=== PATIENT | female | born 1980 | race Caucasian/White ===

== ENCOUNTER 2017-01-18 01:46 | Inpatient (IN) | payer OTHER ==
--- NOTE | 2017-01-18 02:00 | EDPHY ---
H & P Source: Patient, Police HPI/ROS: HPI CHIEF COMPLAINT: Court ordered M1 HISTORY OF PRESENT ILLNESS: This patient 36-year-old female she presents emergency room on M1 hold by police. Patient has a history of schizoaffective disorder, being gravely disabled unable to care for self she was just incarcerated. She is released from assisted this evening however would not participate in psychiatric care in the assisted she placed on a court order M1 hold and was sent here after being released from assisted. Upon arrival here in emergency room the patient is refusing to talk to me or answer any of my questions. Refusing to talk to me or make eye contact. Information comes from the written M1 hold and police. Past Medical History: Schizoaffective disorder Past Surgical History: No recent surgery Social History: Just recently incarcerated and released this evening Family History: Noncontributory ROS REVIEW OF SYSTEMS: Review systems is limited due to patient not wanting to answer any of my questions. Exam Constitutional appears well nontoxic triage nursing summary reviewed, vital signs reviewed, awake/alert. Eyes normal conjunctivae and sclera, EOMI, PERRLA. HENT normal inspection, atraumatic, moist mucus membranes, no epistaxis, neck supple/ no meningismus, no raccoon eyes. Respiratory clear to auscultation bilaterally, normal breath sounds, no respiratory distress, no wheezing. Cardiovascular rate normal, regular rhythm, no murmur, no edema, distal pulses normal. Gastrointestinal soft, non-tender, no rebound, no guarding, normal bowel sounds, no distension, no pulsatile mass. Genitourinary no CVA tenderness. Musculoskeletal no midline vertebral tenderness, full range of motion, no calf swelling, no tenderness of extremities, no meningismus, good pulses, neurovascularly intact. Skin pink, warm, & dry, no rash, skin atraumatic. Neurologic awake, alert and oriented x 3, AAOx3, moves all 4 extremities equally, motor intact, sensory intact, CN II-XII intact, normal cerebellar, normal vision, normal speech. Psychiatric flat affect Heme/Lymph/Immune no lymphadenopathy. Differential Diagnosis: Includes but is not limited to in a particular order, schizoaffective disorder, acute psychosis, gravely disabled, depression, mood disorder Medical Decision Making: Plan for this patient she is on a court ordered M1 hold. She will need medical clearance with blood work, then mental health evaluation and then most likely inpatient psychiatric hospitalization. Re-evaluation: 0653AM: No acute events overnight. Patient signed over to Dr. Sanz at 7:00 a.m. shift change. Needs evaluation. Court ordered M1 hold. Patient will need placement. (Fredrick Kilgore) Constitutional: Initial Vital Signs Temperature (C) 37.2 C 01/18/17 02:15 Heart Rate 105 H 01/18/17 02:15 Respiratory Rate 20 01/18/17 02:15 Blood Pressure 126/108 H 01/18/17 02:15 O2 Sat (%) 97 01/18/17 02:15 O2 Delivery Mode Room Air Allergies/Adverse Reactions: No Known Allergies Allergy (Unverified 01/18/17 02:14) Home Medications: Medication Instructions Recorded NK [No Known Home Meds] 01/18/17 Medical Decision Making ED Course/Re-evaluation: 0700: The patient is signed out to me at change of shift by Dr. Kilgore. Patient is stable. Patient was rechecked during her stay. No new complaints. 1500: Patient is signed out to Dr. Bello at change of shift. (Kathleen Sanz) I assumed care of the patient at 3:00 p.m. pending psychiatric evaluation. Update at 8:30 p.m: The patient has been accepted for inpatient psychiatric admission by Dr. Rodriges at [facility] inpatient psychiatric unit. I have filled out the EMTALA transfer form. (Leo Bello) - Data Points Laboratory Results: Laboratory Results 01/18/17 02:00 01/18/17 02:00 Departure - Departure Disposition: [facility] Inpatient Acute Clinical Impression: Schizoaffective disorder Qualifiers: Schizoaffective disorder type: other Qualified Code(s): F25.8 - Other schizoaffective disorders Condition: Fair Instructions: Schizoaffective Disorder (ED) Referrals: NONE *PRIMARY CARE P,. [Primary Care Provider] - As per Instructions
[2017-01-18 02:49] LABS: % IMMATURE GRANULYOCYTES 0.3 % (0.0-1.1); ABSOLUTE IMMATURE GRANULOCYTES 0.02 10^3/uL (0.00-0.10); ADD DIFF? NO; ADD MORPH? NO; ADD SCAN? NO; ATYPICAL LYMPHOCYTE FLAG 0 (0-99); FRAGMENT RBC FLAG 0 (0-99); HEMATOCRIT 38.3 % (38.0-47.0); HEMOGLOBIN 13.7 g/dL (12.6-16.3); LEFT SHIFT FLG 0 (0-99); LIPEMIA HEMOLYSIS FLAG 90 (0-99); MEAN CELL HEMOGLOBIN 29.3 pg (27.9-34.1); MEAN CELL HEMOGLOBIN CONCENTR. 35.8 g/dL (32.4-36.7); MEAN CELL VOLUME 81.8 fL (81.5-99.8); MEAN PLATELET VOLUME 11.3 fL (8.7-11.7); PLATELET CLUMPS FLAG 0 (0-99); PLATELET COUNT 137 10^3/uL (150-400); RED BLOOD CELL COUNT 4.68 10^6/uL (4.18-5.33); RED CELL DISTRIBUTION WIDTH 12.7 % (11.5-15.2)
[2017-01-18 03:00] LABS: ANION GAP 11 mEq/L (8-16); CARBON DIOXIDE 22 mEq/l (22-31); CHLORIDE 108 mEq/L (97-110); CREATININE 0.7 mg/dL (0.6-1.0); ETHANOL SERUM < 10 mg/dL (0-10); GLOMERULAR FILTRATION RATE > 60; GLUCOSE 82 mg/dL (70-100); POTASSIUM 3.8 mEq/L (3.5-5.2); SALICYLATE < 1.0 mg/dL (2.0-20.0); SODIUM 141 mEq/L (134-144)
[2017-01-18] MEDS ORDERED: LORazepam 1 MG TAB ONE (21:04)
[2017-01-19] MEDS ORDERED: MAGNESIUM HYDROXIDE 30 ML UDCUP PO PRN (00:06)
[2017-01-19] MEDS ORDERED: MAG HYDROX/AL HYDROX/SIMETH 30 ML UDCUP PO PRN (00:06)
[2017-01-19] MEDS: OLANZapine DISINTEGR 10 MG TAB PO SCH ×2 (00:09→00:10)
[2017-01-19] MEDS: risperiDONE 1 MG TAB PO SCH ×2 (14:11→20:30)
--- NOTE | 2017-01-19 15:44 | BAPA ---
[f rep st] ADMISSION PSYCHIATRIC ASSESSMENT PATIENT IDENTIFICATION: The patient presents as a 36-year-old single, white female who had been living in her own apartment prior to admission; she has been diagnosed remotely as suffering from a Schizoaffective Disorder. She is supported on an [facility] stipend. It is not clear if she is an identified psychiatric outpatient in the community currently. She was brought by [place] Police from the [facility] for complaints of an acute psychotic decompensation. She had been placed on a court-ordered M1 hold prior to being brought to the [facility] emergency room. There she was cleared medically and psychiatrically, deemed gravely disabled, and sent on for admission to [address] [place] [address] on an M1 hold. CHIEF COMPLAINT: "I have been sent from halfway to a state hospital." HISTORY OF PRESENT ILLNESS: The database is limited as patient has been relatively nonverbal prior to being admitted to [address] [place] [address]. Intake data states the patient had been acting up aggressively in her residential building prior to admission. Data states the patient had been "aggressive with neighbors" for an unknown period of time. We are also unclear what form the aggressive behaviors took. We do know then 911 was called and the patient was found by police to be in an acutely disorganized state and taken initially to the [facility]. It is unclear how long she was in the halfway. We do know from the database that she had refused contact with mental health or medical clinicians as well as an claims attorney. Data also states the patient has a legal guardian assigned to her historically..Finally, the database states the patient has a substance abuse problem which was thought to have been active during her present illness history. In the emergency room, the patient refused to speak to the emergency room doctor or make eye contact. She did cooperate with the physical exam which was unremarkable and stable including vital signs. Patient had lab screens which included a CBC, chemistries, beta HCG, and toxic urine screen. All lab results were unremarkable and/or within normal limits, other than diminished platelet count at 137. The patient was then seen in psychiatric consultation by [facility]. Chief complaint is represented above was a verbal statement made to [facility]. The patient did speak sparsely to the [facility] clinician while making no eye contact. On mental status assessment, she was found to be disheveled and unkempt, constricted and flattened in affect of expression when she did speak. She also appeared to be variably anxious, relayed in a guarded fashion. The sparse verbalization contained paranoid elements. Patient also appeared to be responding to internal stimuli. The patient was determined to be gravely disabled and in need of acute hospitalization. She was sent on to [address] [place] [address] on the M1 hold. PSYCHIATRIC HISTORY: The patient did state she had been seen by a psychiatrist 5 years ago and was placed on medication. She added she had not been taking medications for an extended period. She remarked that her sleep and appetite patterns had been "fine" for an extended period. It is likely the patient has an extensive symptom and treatment history as indicated by the database. This will be clarified in intake phase. MEDICAL HISTORY: There is no known history of medical conditions. Emergency room medical workup was negative for any active medical problems. KNOWN ALLERGIES: The patient has no known medication, environmental, or food allergies. MEDICAL REVIEW OF SYSTEMS: Negative. SUBSTANCE ABUSE HISTORY: There is no known substance abuse problems presently or by history, other than the brief narrative data that states the patient has substance abuse problems active presently prior to this admission. This will be further clarified in intake phase. LEGAL HISTORY: None known currently or by history, other than the disturbance reported currently that led to patient's brief incarceration. PERSONAL HISTORY/FAMILY HISTORY: Precise data unavailable at time of admission , given patient's refusal to answer questions. Limited database states patient currently has an assigned guardian, is on disability support. The patient made a brief reference to having a daughter with no further details provided. ADMISSION MENTAL STATUS EXAM: On direct exam, the patient presents as a mildly unkempt adult white female looking her stated age. The patient presents as cooperative with engaging. Her cooperation extends to speaking directly with me. Her thought pattern is concrete, positive for paranoid elements including circumscribed persecutory delusions. Using oblique language, patient describes a "stranger" trying to control her by speaking deceitfully to the "uniforms", patient's word for the police who responded to the 911 call and brought her to the [facility]. The patient goes on to state that this was very stressful and created anxiety. She also acknowledges not taking psychiatric medications or being involved with treatment for an extended time. She denies having a guardian assigned to her. With respect to medications, the patient does acknowledge her anxiety state, and agrees to initiate a low-dose Risperdal regimen, after stating she has taken Zyprexa in the past and this has not agreed with her system. As the session continues, the patient does become more relaxed by observation. I asked her to make eye contact and she does and is able to hold her gaze appropriately. Before session ends, the patient ask if she can have privileges to shave her legs, which I state we can do with nursing supervision - another indication patient is initiating a positive response in allying with treatment. The session focuses on staging mental status and attempting intake on patient's symptom and treatment history and overall life line history. Given her unkempt appearance, the patient's ADL functions are regressed and will be reinforced to improve in the applied care plan. FORMULATION: The patient presents as a 36-year-old, white female whose history suggests a chronic symptom and treatment career associated with a major psychotic disorder. Intake data states she has been diagnosed historically as suffering from a Schizophrenic Disorder. The database is extremely limited and initial efforts will focus on obtaining contact with collaterals as well as focus with patient as she becomes more verbal to clarify the present illness and past history of this patient. Treatment plan will also focus on resolving patients acute psychotic state. She has agreed to initiate a low dose Risperdal regimen which we will begin today and anticipate up dosing as patient cooperates. Court ordered medications will be a possible applied strategy if patient does not cooperate with adequate medication management. ADMISSION DIAGNOSTIC IMPRESSION: AXIS I: 1. Schizoaffective Disorder: Acute exacerbation associated with paranoid ideation, persecutory delusions, history prior to admission of aggressive behavioral dyscontrol-details unclear. 2. Rule out Major Psychotic Disorder-other. 3. Rule out Substance Use Disorder-database suggests this as a problem with no further details offered. AXIS II: Deferred. [place] III: No active medical problems; medical history noncontributory. AXIS IV: Extended absence of applied psychiatric treatment in the community including absence of home medications for an unknown period of time. AXIS V: Admission Global Assessment of Functioning 30. INITIAL TREATMENT PLAN: 1. Nursing: Complete admission assessment; reinforce compliance with cares and medications; orient patient to the unit community and group program; encourage participation as patient's mental status improves and allows. 2. Psychiatry: Complete admission assessment; provide daily E/M contacts with focus on completing diagnostic workup, providing reintegrative psychotherapeutic contacts, allying patient with followup treatment to linked discharge plan. 3. Clinical Coordinator: Daily contacts to expand the intake database including contacting relevant collaterals; identify treatment resources in the community to be used post discharge with linkage to resources in place at discharge. 4. Admission medical consultation: Pending. 5. Medications: Initiate Risperdal at 1 mg p.o. twice daily and assess for likely up dosing in first phase; consider request for court ordered medications if patient is resistant. 6. Prioritize inpatient treatment goals: Stabilize mental status sufficient for discharge, complete diagnostic formulation to inform definitive discharge planning, ally patient with followup treatment post discharge; link patient to discharge resources in a timely manner at discharge. /[id number]/MODL MTDD
--- NOTE | 2017-01-19 16:09 | BCON ---
[f rep ] BEHAVIORAL HEALTH CONSULTATION INTERNAL MEDICINE CONSULTATION DATE OF CONSULTATION: 01/19/2017 REFERRING PHYSICIAN: Zack Rodriges MD REASON FOR REFERRAL: Medical clearance for inpatient behavioral [facility] stay. HISTORY OF PRESENT ILLNESS: The patient comes to inpatient Behavioral Health on an M1 hold by police. [facility] the [facility] where she had been found to be gravely disabled and unable to care for herself. Per the emergency department report, she had been in [facility] for aggressive behavior and had recently lost her apartment due to aggressive behavior. She currently is without any medical complaints. PAST MEDICAL HISTORY: She denies any history of any medical illnesses, and she reports that she is unwilling to discuss any history of past surgeries. MEDICATIONS: She was on no medications prior to admission. ALLERGIES: There are no known allergies. SOCIAL HISTORY: She has a history of tobacco smoking and reports that she quit 3-6 months ago. She denies use of alcohol or other substances of abuse. She is unwilling to discuss any occupational history. FAMILY HISTORY is unknown. She is unwilling to discuss it. REVIEW OF SYSTEMS: She denies snoring. She sometimes naps during the day but does not have overall a lot of daytime sleepiness. She denies petechiae or easy bruising. She denies dyspnea, cough, nausea, vomiting, diarrhea, or constipation, and otherwise a 10-point review of systems is negative. PHYSICAL EXAM: VITAL SIGNS: Taken at 0039 this morning, blood pressure was 133 /91, heart rate was 105, respiratory rate was 16, oxygen saturation was 100% on room air, temperature was 36.7 degrees centigrade. She has not been weighed. GENERAL: This is an overweight, obese-appearing woman sitting up in the bed, flat affect, cooperative and in no acute distress. HEENT: Extraocular movements are intact. Pupils are equal, round, and reactive to light. Mucous membranes are moist. Dentition is in good condition. She has a crowded airway , Mallampati Class IV. NECK: Supple. HEART: There is a regular rate and rhythm with no murmurs, rubs, or gallops. LUNGS: Clear to auscultation bilaterally. ABDOMEN: Soft, nontender, nondistended with normoactive bowel sounds. EXTREMITIES: There is no cyanosis or clubbing. There is trace edema bilaterally, pretibial. NEUROLOGIC: She is alert and oriented x3. Cranial nerves 2-12 are grossly intact. There is no focal weakness. Sensation is intact to light touch. LABORATORY STUDIES: From the emergency department, hematology was overall within normal limits but for a slightly low platelet count of 137. Serum chemistry revealed normal renal function and electrolytes. Beta HCG was negative for . Toxicology screen in the serum was negative for salicylates, acetaminophen or ethyl alcohol, and the urine was negative for any substances of abuse. ASSESSMENT AND PLAN: 1. Thrombocytopenia of unclear etiology. I will add on liver function tests to the sample drawn yesterday to ensure that she does not have liver disease which could be contributing. 2. Overweight status. Advise exercising some caution with psychiatric medications that might cause weight gain, but overall her psychosocial stabilization is the first priority. I see no medical contraindications to the patient's continued stay on the inpatient behavioral health unit or to any psychiatric medications or procedures. Thank you very much for including me in the care of the patient and please do not hesitate to contact me or the hospitalist service should there be a need for further medical evaluation. /[id number]/MODL MTDD
[2017-01-19 17:16] LABS: ALANINE AMINOTRANSFERASE 24 IU/L (9-52); ALBUMIN 3.8 g/dL (3.5-5.0); ALKALINE PHOSPHATASE 67 IU/L (38-126); ASPARTATE AMINOTRANSFERASE 29 IU/L (14-46); BILIRUBIN-CONJUGATED 0.4 mg/dL (0.0-0.5); BILIRUBIN-UNCONJUGATED 0.6 mg/dL (0.0-1.1)
[2017-01-20] MEDS: risperiDONE 1 MG TAB PO SCH ×2 (08:33→21:41)
--- NOTE | 2017-01-20 14:14 | SOAPPROG ---
SOAP Progress Note Assessment/Plan: Assessment: Plan: 01/20/17 11:30 DAY ' UPDATE/EXAM: Nursing report pt is less isolative - eating in DR and attending selective groups, c/w cares and meds/ on exam presents as flat and constricted, residual PI with persecutory delusions but is more verbal and with better eye contact; acknowledges obliquely that she has guardian who is her MOC; responsive to reintegrative support; accepting increase in Risperdal dosing ASSESSMENT/PLAN: residual psychotic acuity byt evidencing initial improvement/ will increse Risperdal to 2 mg bid; CP d/w Nursing in Rounds Objective: Vital Signs Temp Pulse Resp BP Pulse Ox 36.6 C 82 16 105/71 92 01/20/17 06:00 01/20/17 06:00 01/20/17 06:00 01/20/17 06:00 01/20/17 06:00 ICD10 Worksheet Patient Problems: Problems Problem Status Onset Schizoaffective disorder Acute
[2017-01-20] MEDS: ACETAMINOPHEN 325 MG TAB PO PRN (19:28)
[2017-01-20] MEDS: LORazepam 0.5 MG TAB PO PRN (19:29)
[2017-01-21] MEDS: LORazepam 0.5 MG TAB PO PRN ×4 (06:42→20:26)
[2017-01-21] MEDS: ACETAMINOPHEN 325 MG TAB PO PRN ×4 (06:42→20:27)
--- NOTE | 2017-01-21 08:03 | SOAPPROG ---
SOAP Progress Note Assessment/Plan: Assessment: Plan: 01/20/17 11:30 DAY ' UPDATE/EXAM: Nursing report pt is less isolative - eating in DR and attending selective groups, c/w cares and meds/ on exam presents as flat and constricted, residual PI with persecutory delusions but is more verbal and with better eye contact; acknowledges obliquely that she has guardian who is her MOC; responsive to reintegrative support; accepting increase in Risperdal dosing ASSESSMENT/PLAN: residual psychotic acuity but evidencing initial improvement/ will increase Risperdal to 2 mg bid; CP d/w Nursing in Rounds Objective: Vital Signs Temp Pulse Resp BP Pulse Ox 36.7 C 91 12 114/64 95 01/21/17 06:00 01/21/17 06:00 01/21/17 06:00 01/21/17 06:00 01/21/17 06:00 ICD10 Worksheet Patient Problems: Problems Problem Status Onset Schizoaffective disorder Acute
[2017-01-21] MEDS: risperiDONE 1 MG TAB PO SCH ×2 (08:07→20:27)
--- NOTE | 2017-01-21 19:37 | SOAPPROG ---
SOAP Progress Note Assessment/Plan: Assessment: 36yo with hx of Schizoaffective d/o, admitted from alf where she was found to be gravely disabled and paranoid Dx: Schizoaffective d/o, acute 01/21/17 11:00 reports "I went to 1 group already this morning". states she is eating well, sleeping "fine", denies feeling depressed and denied any SI denied medications s/e or intolerance to risperdal- "it's okay" [place] [facility] [place] cr[place] which she states give her anxiety addending appropriately to her ADLs, states she has washed her hair, "there's nothing in it, they checked" (referring to matted hair on back of her head)-"I usually wear a hat to cover this", would like to shave her chin, okay with staff supervision MSE: calm, cooperative, engaging, nml eye contact and speech, mood "fine", affect appears euthymic,no evid for thought d/o, denied psychotic sxs, no evid of paranoia and no expressed delusions, denied si/hi, i/j both seem fair PLAN: -cont risperdal 1mg bid but seems improving and denies any s/e. -cont encourage group attendance, and attending to ADLs -monitor use of ativan, noted with subst use hx per hx Objective: Vital Signs Temp Pulse Resp BP Pulse Ox 36.7 C 91 12 114/64 95 01/21/17 06:00 01/21/17 06:00 01/21/17 06:00 01/21/17 06:00 01/21/17 06:00 - Time Spent With Patient Time Spent With Patient: 20min - Pending Discharge Pending Discharge Within 24 Hours: No Pending Discharge Within 48 Hours: No ICD10 Worksheet Patient Problems: Problems Problem Status Onset Schizoaffective disorder Acute
[2017-01-22] MEDS: risperiDONE 1 MG TAB PO SCH (08:21)
[2017-01-22] MEDS: LORazepam 0.5 MG TAB PO PRN ×3 (08:24→17:15)
[2017-01-22] MEDS: ACETAMINOPHEN 325 MG TAB PO PRN ×3 (08:25→17:15)
--- NOTE | 2017-01-22 10:34 | HOSPPROG ---
Hospitalist Progress Note Assessment/Plan: Call from Behavioral health. Pt cut herself while shaving. Not intentional. 4 inches in length. Bandaging has controlled bleeding. Nursing called per their protocol. They will continue to monitor. Objective: Vital Signs Temp Pulse Resp BP Pulse Ox 98.2 F 70 16 97/57 L 96 01/22/17 06:00 01/22/17 06:00 01/22/17 06:00 01/22/17 06:00 01/22/17 06:00 ICD10 Worksheet Patient Problems: Problems Problem Status Onset Schizoaffective disorder Acute
--- NOTE | 2017-01-22 11:37 | SOAPPROG ---
SOAP Progress Note Assessment/Plan: Assessment: 36yo with hx of Schizoaffective d/o, admitted from [facility] where she was found to be gravely disabled and paranoid Dx: Schizoaffective d/o, acute [place]ac 01/21/17 11:00 reports "I went to 1 group already this morning". states she is eating well, sleeping "fine", denies feeling depressed and denied any SI denied medications s/e or intolerance to risperdal- "it's okay" [place] [facility] [place] for her menstrual cramps which she states give her anxiety addending appropriately to her ADLs, states she has washed her hair, "there's nothing in it, they checked" (referring to matted hair on back of her head)-"I usually wear a hat to cover this", would like to shave her chin, okay with staff supervision PLAN: -cont risperdal 1mg bid but seems improving and denies any s/e. -cont encourage group attendance, and attending to ADLs -monitor use of ativan, noted with subst use hx per hx 01/22/17 11:32 slept 7hr requested ativan this am, has had 4mg prn yesterday with tylenol 650mg prn each time. inadvertently cut self shaving chin this am. volunteered almost apologetically her freq request for ativan with tylenol, states she is fine with d/c ativan and replace with vistaril prn. talked some of anxiety and paranoia sxs FAMILY PHYSICIAN, and that the stranger tried to call her 2x while on the unit here, but nothing since . didn't know who, " I cant say her real name, she never said" altho "she" pretended to be mother or guardian when she called. MSE: calm, appears slightly sluggish, disheveled hair, in hosp gowns, nml eye contact, articulate, mood "fine", affect appropriate, denied ah/vh , related some paranoid thoughts from early during admission, states no such concerns since 2 d ago, denied si/hi denied med s/e or physical c/o. PLAN: -cont encourage group attendance, and attending to ADLs -d/c ativan. seems to be unnecessarily requesting and expressed some insight into this -vistaril 25-50mg prn -Incr risperdal to 2mg hs, and 1mg qam from 1mg bid. Objective: Vital Signs Temp Pulse Resp BP Pulse Ox 36.8 C 70 16 97/57 L 96 01/22/17 06:00 01/22/17 06:00 01/22/17 06:00 01/22/17 06:00 01/22/17 06:00 - Time Spent With Patient Time Spent With Patient: 25min - Pending Discharge Pending Discharge Within 24 Hours: No Pending Discharge Within 48 Hours: No ICD10 Worksheet Patient Problems: Problems Problem Status Onset Schizoaffective disorder Acute
[2017-01-22] MEDS ORDERED: risperiDONE 2 MG TAB PO SCH (21:00)
[2017-01-22] MEDS: hydrOXYzine HCL 25 MG TAB PO PRN (21:03)
[2017-01-23] MEDS: risperiDONE 1 MG TAB PO SCH (03:10)
[2017-01-23] MEDS ORDERED: HYDROCHLOROTHIAZIDE 25 MG TAB ONE (08:34)
[2017-01-23] MEDS ORDERED: risperiDONE 1 MG TAB PO SCH (09:00)
--- NOTE | 2017-01-23 12:20 | SOAPPROG ---
SOAP Progress Note Assessment/Plan: Assessment: Plan: 01/20/17 11:30 DAY ' UPDATE/EXAM: Nursing report pt is less isolative - eating in DR and attending selective groups, c/w cares and meds/ on exam presents as flat and constricted, residual PI with persecutory delusions but is more verbal and with better eye contact; acknowledges obliquely that she has guardian who is her MOC; responsive to reintegrative support; accepting increase in Risperdal dosing ASSESSMENT/PLAN: residual psychotic acuity but evidencing initial improvement/ will increase Risperdal to 2 mg bid; CP d/w Nursing in Rounds 01/23/17 08:00 DAY UPDATE/EXAM: Objective: Vital Signs Temp Pulse Resp BP Pulse Ox 36.8 C 70 16 97/57 L 96 01/22/17 06:00 01/22/17 06:00 01/22/17 06:00 01/22/17 06:00 01/22/17 06:00 ICD10 Worksheet Patient Problems: Problems Problem Status Onset Schizoaffective disorder Acute
[2017-01-23] MEDS: risperiDONE 2 MG TAB PO SCH ×2 (13:50→20:41)
[2017-01-23] MEDS: hydrOXYzine HCL 25 MG TAB PO PRN ×2 (15:43→20:41)
[2017-01-24] MEDS: risperiDONE 2 MG TAB PO SCH ×3 (10:12→20:20)
[2017-01-24] MEDS: hydrOXYzine HCL 25 MG TAB PO PRN ×3 (10:17→20:20)
--- NOTE | 2017-01-24 13:22 | SOAPPROG ---
SOAP Progress Note Assessment/Plan: Assessment: Plan: 01/20/17 11:30 DAY ' UPDATE/EXAM: Nursing report pt is less isolative - eating in DR and attending selective groups, c/w cares and meds/ on exam presents as flat and constricted, residual PI with persecutory delusions but is more verbal and with better eye contact; acknowledges obliquely that she has guardian who is her MOC; responsive to reintegrative support; accepting increase in Risperdal dosing ASSESSMENT/PLAN: residual psychotic acuity but evidencing initial improvement/ will increase Risperdal to 2 mg bid; CP d/w Nursing in Rounds 01/23/17 08:00 DAY ' UPDATE/EXAM: Nursing reports that pt more visible in the milieu and attending selective groups; remains with regressed ADL's but is improving hygiene; c/w cares and meds/ on direct exam does engage and make good eye contact, spontaneously verbal, less guarded; states she won't brush hair because "I don' t want to look good and attract attention"; is responsive to reintegrative support and + reinforcement for meds compliance and socialization efforts ASSESSMENT/PLAN: early phase improvement; residual psychotic acuity/ intake call to MOC pending; anticipate titrating Risperdal dosing up, still considering request for COM; CP reviewed with Nursing in Rounds 01/24/17 11:00 DAY 6/ Objective: Vital Signs Temp Pulse Resp BP Pulse Ox 36.5 C 73 12 101/56 L 96 01/24/17 06:00 01/24/17 06:00 01/24/17 06:00 01/24/17 06:00 01/24/17 06:00 ICD10 Worksheet Patient Problems: Problems Problem Status Onset Schizoaffective disorder Acute
--- NOTE | 2017-01-24 13:28 | SOAPPROG ---
SOAP Progress Note Assessment/Plan: Assessment: Plan: 01/20/17 11:30 DAY ' UPDATE/EXAM: Nursing report pt is less isolative - eating in DR and attending selective groups, c/w cares and meds/ on exam presents as flat and constricted, residual PI with persecutory delusions but is more verbal and with better eye contact; acknowledges obliquely that she has guardian who is her MOC; responsive to reintegrative support; accepting increase in Risperdal dosing ASSESSMENT/PLAN: residual psychotic acuity but evidencing initial improvement/ will increase Risperdal to 2 mg bid; CP d/w Nursing in Rounds 01/23/17 08:00 DAY UPDATE/EXAM: Nursing reports that pt more visible in the milieu and attending selective groups; remains with regressed ADL's but is improving hygiene; c/w cares and meds/ on direct exam does engage and make good eye contact, spontaneously verbal, less guarded; states she won't brush hair because "I don' t want to look good and attract attention"; is responsive to reintegrative support and + reinforcement for meds compliance and socialization efforts ASSESSMENT/PLAN: early phase improvement; residual psychotic acuity/ intake call to MOC pending; anticipate titrating Risperdal dosing up, still considering request for COM; CP reviewed with Nursing in Rounds 01/24/17 11:00 DAY UPDATE/EXAM: Nursing reports pt's paced improvement continues in paced manner - continues with observable guardedness, Pi, degree of isolation Objective: Vital Signs Temp Pulse Resp BP Pulse Ox 36.5 C 73 12 101/56 L 96 01/24/17 06:00 01/24/17 06:00 01/24/17 06:00 01/24/17 06:00 01/24/17 06:00 ICD10 Worksheet Patient Problems: Problems Problem Status Onset Schizoaffective disorder Acute
--- NOTE | 2017-01-24 14:32 | SOAPPROG ---
SOAP Progress Note Assessment/Plan: Assessment: Plan: 01/20/17 11:30 DAY ' UPDATE/EXAM: Nursing report pt is less isolative - eating in DR and attending selective groups, c/w cares and meds/ on exam presents as flat and constricted, residual PI with persecutory delusions but is more verbal and with better eye contact; acknowledges obliquely that she has guardian who is her MOC; responsive to reintegrative support; accepting increase in Risperdal dosing ASSESSMENT/PLAN: residual psychotic acuity but evidencing initial improvement/ will increase Risperdal to 2 mg bid; CP d/w Nursing in Rounds 01/23/17 08:00 DAY UPDATE/EXAM: Nursing reports that pt more visible in the milieu and attending selective groups; remains with regressed ADL's but is improving hygiene; c/w cares and meds/ on direct exam does engage and make good eye contact, spontaneously verbal, less guarded; states she won't brush hair because "I don' t want to look good and attract attention"; is responsive to reintegrative support and + reinforcement for meds compliance and socialization efforts ASSESSMENT/PLAN: early phase improvement; residual psychotic acuity/ intake call to MOC pending; anticipate titrating Risperdal dosing up, still considering request for COM; CP reviewed with Nursing in Rounds 01/24/17 11:00 DAY UPDATE/EXAM: Nursing reports pt's paced improvement continues in paced manner - continues with observable guardedness, PI, degree of isolation/ on direct exam continues to evidence circumscribed PI but is conversant with me with good eye contact; understands my positive reinforcing comments on her c ompliance with her treatment plan including compliance with med; understands her Risperdal dosing will be increased to 3 mg bid. INTAKE/MOC - pending as MOC and temporary guardian on C/B ASSESSMENT/PLAN: continues early phase improvement b/w residual psychotic acuity / increase Risperdal to 3mg bid; reintegrative CP d/w Nursing in rounds; c/b expected from [facility] for collateral expansion of data 01/24/17 14:21 Objective: Vital Signs Temp Pulse Resp BP Pulse Ox 36.5 C 73 12 101/56 L 96 01/24/17 06:00 01/24/17 06:00 01/24/17 06:00 01/24/17 06:00 01/24/17 06:00 ICD10 Worksheet Patient Problems: Problems Problem Status Onset Schizoaffective disorder Acute
[2017-01-24] MEDS: ACETAMINOPHEN 325 MG TAB PO PRN (20:20)
[2017-01-25] MEDS: risperiDONE 2 MG TAB PO SCH ×2 (10:54→20:12)
[2017-01-25] MEDS: hydrOXYzine HCL 25 MG TAB PO PRN ×3 (10:55→20:12)
[2017-01-25] MEDS: ACETAMINOPHEN 325 MG TAB PO PRN ×3 (10:56→20:12)
--- NOTE | 2017-01-25 14:04 | SOAPPROG ---
SOAP Progress Note Assessment/Plan: Assessment: Plan: 01/20/17 11:30 DAY UPDATE/EXAM: Nursing report pt is less isolative - eating in DR and attending selective groups, c/w cares and meds/ on exam presents as flat and constricted, residual PI with persecutory delusions but is more verbal and with better eye contact; acknowledges obliquely that she has guardian who is her MOC; responsive to reintegrative support; accepting increase in Risperdal dosing ASSESSMENT/PLAN: residual psychotic acuity but evidencing initial improvement/ will increase Risperdal to 2 mg bid; CP d/w Nursing in Rounds 01/23/17 08:00 DAY UPDATE/EXAM: Nursing reports that pt more visible in the milieu and attending selective groups; remains with regressed ADL's but is improving hygiene; c/w cares and meds/ on direct exam does engage and make good eye contact, spontaneously verbal, less guarded; states she won't brush hair because "I don' t want to look good and attract attention"; is responsive to reintegrative support and + reinforcement for meds compliance and socialization efforts ASSESSMENT/PLAN: early phase improvement; residual psychotic acuity/ intake call to MOC pending; anticipate titrating Risperdal dosing up, still considering request for COM; CP reviewed with Nursing in Rounds 01/24/17 11:00 DAY UPDATE/EXAM: Nursing reports pt's paced improvement continues in paced manner - continues with observable guardedness, PI, degree of isolation/ on direct exam continues to evidence circumscribed PI but is conversant with me with good eye contact; understands my positive reinforcing comments on her c ompliance with her treatment plan including compliance with med; understands her Risperdal dosing will be increased to 3 mg bid. INTAKE/MOC - pending as MOC and temporary guardian on C/B ASSESSMENT/PLAN: continues early phase improvement b/w residual psychotic acuity / increase Risperdal to 3mg bid; reintegrative CP d/w Nursing in rounds; c/b expected from MOC for collateral expansion of data 01/24/17 14:20 DAY UPDATE/EXAM: Nursing reports pt sustaining paced progress in clearing psychotic acuity - still in early phase as pt's PI observable/ on direct exam pt appears more relaxed and with better spontaneous eye contact b/w residual PI and obliquely makes delusional references to MOC with an angry tone; affect with broadening range and lessening flatness; agrees to work with [facility] after dC and knows her housing is being addressed; reinforced in her compliance with cares and meds and encouraged to eat in dining room ASSESSMENT/PLAN: diminished psychotic acuity/ no change in meds; CP to encourage all meals in DR - d/w Nursing in Rounds 01/25/17 14:04 Objective: Vital Signs Temp Pulse Resp BP Pulse Ox 36.8 C 80 16 98/67 L 93 01/25/17 06:00 01/25/17 06:00 01/25/17 06:00 01/25/17 06:00 01/25/17 06:00 ICD10 Worksheet Patient Problems: Problems Problem Status Onset Schizoaffective disorder Acute
[2017-01-26] MEDS: risperiDONE 2 MG TAB PO SCH ×2 (08:20→20:48)
[2017-01-26] MEDS: hydrOXYzine HCL 25 MG TAB PO PRN ×2 (08:30→16:13)
[2017-01-26] MEDS: OLANZapine DISINTEGR 10 MG TAB PO PRN ×4 (08:47→20:53)
[2017-01-26] MEDS: NICOTINE POLACRILEX 2 MG GUM B PRN ×5 (12:34→21:33)
--- NOTE | 2017-01-26 15:22 | SOAPPROG ---
SOAP Progress Note Assessment/Plan: Assessment: Plan: 01/20/17 11:30 DAY UPDATE/EXAM: Nursing report pt is less isolative - eating in DR and attending selective groups, c/w cares and meds/ on exam presents as flat and constricted, residual PI with persecutory delusions but is more verbal and with better eye contact; acknowledges obliquely that she has guardian who is her MOC; responsive to reintegrative support; accepting increase in Risperdal dosing ASSESSMENT/PLAN: residual psychotic acuity but evidencing initial improvement/ will increase Risperdal to 2 mg bid; CP d/w Nursing in Rounds 01/23/17 08:00 DAY UPDATE/EXAM: Nursing reports that pt more visible in the milieu and attending selective groups; remains with regressed ADL's but is improving hygiene; c/w cares and meds/ on direct exam does engage and make good eye contact, spontaneously verbal, less guarded; states she won't brush hair because "I don' t want to look good and attract attention"; is responsive to reintegrative support and + reinforcement for meds compliance and socialization efforts ASSESSMENT/PLAN: early phase improvement; residual psychotic acuity/ intake call to MOC pending; anticipate titrating Risperdal dosing up, still considering request for COM; CP reviewed with Nursing in Rounds 01/24/17 11:00 DAY UPDATE/EXAM: Nursing reports pt's paced improvement continues in paced manner - continues with observable guardedness, PI, degree of isolation/ on direct exam continues to evidence circumscribed PI but is conversant with me with good eye contact; understands my positive reinforcing comments on her c ompliance with her treatment plan including compliance with med; understands her Risperdal dosing will be increased to 3 mg bid. INTAKE/MOC - pending as MOC and temporary guardian on C/B ASSESSMENT/PLAN: continues early phase improvement b/w residual psychotic acuity / increase Risperdal to 3mg bid; reintegrative CP d/w Nursing in rounds; c/b expected from [facility] for collateral expansion of data 01/25/17 14:20 DAY UPDATE/EXAM: Nursing reports pt sustaining paced progress in clearing psychotic acuity - still in early phase as pt's PI observable/ on direct exam pt appears more relaxed and with better spontaneous eye contact b/w residual PI and obliquely makes delusional references to MOC with an angry tone; affect with broadening range and lessening flatness; agrees to work with [facility] after dC and knows her housing is being addressed; reinforced in her compliance with cares and meds and encouraged to eat in dining room ASSESSMENT/PLAN: diminished psychotic acuity/ no change in meds; CP to encourage all meals in DR - d/w Nursing in Rounds 01/26/17 14:42 DAY UPDATE/EXAM: Nursing reports paced gains over last 24 hrs evidenced by more organization of thought process, more visibility in milieu, improving ADL'S/ on direct exam pt makes consistent eye contact, appearance-hygiene improving; coherent conversant verbal mode and able to discuss alliance with accepting MHP referral and, if need be, working with the [facility]; positive repsonse to reintegrative input during session. ASSESSMENT/PLAN: midphase in progress recompensating/ no change in meds; management plan d/w Nursing in Rounds with continued emphasis of increasing autonomy with ADL'S and reinforcing social ego functions Objective: Vital Signs Temp Pulse Resp BP Pulse Ox 36.8 C 73 14 104/61 95 01/25/17 06:00 01/26/17 06:14 01/26/17 06:14 01/26/17 06:14 01/26/17 06:14 ICD10 Worksheet Patient Problems: Problems Problem Status Onset Schizoaffective disorder Acute
[2017-01-26] MEDS: ACETAMINOPHEN 325 MG TAB PO PRN ×2 (16:14→20:53)
[2017-01-27] MEDS: NICOTINE POLACRILEX 2 MG GUM B PRN ×6 (00:55→17:02)
[2017-01-27] MEDS: ACETAMINOPHEN 325 MG TAB PO PRN ×3 (00:55→20:12)
--- NOTE | 2017-01-27 09:02 | SOAPPROG ---
SOAP Progress Note Assessment/Plan: Assessment: Plan: 01/20/17 11:30 DAY UPDATE/EXAM: Nursing report pt is less isolative - eating in DR and attending selective groups, c/w cares and meds/ on exam presents as flat and constricted, residual PI with persecutory delusions but is more verbal and with better eye contact; acknowledges obliquely that she has guardian who is her MOC; responsive to reintegrative support; accepting increase in Risperdal dosing ASSESSMENT/PLAN: residual psychotic acuity but evidencing initial improvement/ will increase Risperdal to 2 mg bid; CP d/w Nursing in Rounds 01/23/17 08:00 DAY UPDATE/EXAM: Nursing reports that pt more visible in the milieu and attending selective groups; remains with regressed ADL's but is improving hygiene; c/w cares and meds/ on direct exam does engage and make good eye contact, spontaneously verbal, less guarded; states she won't brush hair because "I don' t want to look good and attract attention"; is responsive to reintegrative support and + reinforcement for meds compliance and socialization efforts ASSESSMENT/PLAN: early phase improvement; residual psychotic acuity/ intake call to MOC pending; anticipate titrating Risperdal dosing up, still considering request for COM; CP reviewed with Nursing in Rounds 01/24/17 11:00 DAY UPDATE/EXAM: Nursing reports pt's paced improvement continues in paced manner - continues with observable guardedness, PI, degree of isolation/ on direct exam continues to evidence circumscribed PI but is conversant with me with good eye contact; understands my positive reinforcing comments on her c ompliance with her treatment plan including compliance with med; understands her Risperdal dosing will be increased to 3 mg bid. INTAKE/MOC - pending as MOC and temporary guardian on C/B ASSESSMENT/PLAN: continues early phase improvement b/w residual psychotic acuity / increase Risperdal to 3mg bid; reintegrative CP d/w Nursing in rounds; c/b expected from [facility] for collateral expansion of data 01/25/17 14:20 DAY UPDATE/EXAM: Nursing reports pt sustaining paced progress in clearing psychotic acuity - still in early phase as pt's PI observable/ on direct exam pt appears more relaxed and with better spontaneous eye contact b/w residual PI and obliquely makes delusional references to MOC with an angry tone; affect with broadening range and lessening flatness; agrees to work with [facility] after dC and knows her housing is being addressed; reinforced in her compliance with cares and meds and encouraged to eat in dining room ASSESSMENT/PLAN: diminished psychotic acuity/ no change in meds; CP to encourage all meals in DR - d/w Nursing in Rounds 01/26/17 14:42 DAY UPDATE/EXAM: Nursing reports paced gains over last 24 hrs evidenced by more organization of thought process, more visibility in milieu, improving ADL'S/ on direct exam pt makes consistent eye contact, appearance-hygiene improving; coherent conversant verbal mode and able to discuss alliance with accepting MHP referral and, if need be, working with the [facility]; positive reponse to reintegrative input during session. ASSESSMENT/PLAN: midphase in progress recompensating/ no change in meds; management plan d/w Nursing in Rounds with continued emphasis of increasing autonomy with ADL'S and reinforcing social ego functions 01/27/17 DAY UPDATE/EXAM: Objective: Vital Signs Temp Pulse Resp BP Pulse Ox 36.8 C 70 14 97/56 L 95 01/25/17 06:00 01/27/17 06:22 01/27/17 06:22 01/27/17 06:22 01/27/17 06:22 ICD10 Worksheet Patient Problems: Problems Problem Status Onset Schizoaffective disorder Acute
[2017-01-27] MEDS: risperiDONE 2 MG TAB PO SCH ×2 (09:07→20:13)
[2017-01-27] MEDS: hydrOXYzine HCL 25 MG TAB PO PRN ×4 (09:08→21:29)
[2017-01-27] MEDS: OLANZapine DISINTEGR 10 MG TAB PO PRN ×4 (09:08→21:28)
--- NOTE | 2017-01-28 07:48 | SOAPPROG ---
SOAP Progress Note Assessment/Plan: Assessment: Plan: 01/20/17 11:30 DAY UPDATE/EXAM: Nursing report pt is less isolative - eating in DR and attending selective groups, c/w cares and meds/ on exam presents as flat and constricted, residual PI with persecutory delusions but is more verbal and with better eye contact; acknowledges obliquely that she has guardian who is her MOC; responsive to reintegrative support; accepting increase in Risperdal dosing ASSESSMENT/PLAN: residual psychotic acuity but evidencing initial improvement/ will increase Risperdal to 2 mg bid; CP d/w Nursing in Rounds 01/23/17 08:00 DAY UPDATE/EXAM: Nursing reports that pt more visible in the milieu and attending selective groups; remains with regressed ADL's but is improving hygiene; c/w cares and meds/ on direct exam does engage and make good eye contact, spontaneously verbal, less guarded; states she won't brush hair because "I don' t want to look good and attract attention"; is responsive to reintegrative support and + reinforcement for meds compliance and socialization efforts ASSESSMENT/PLAN: early phase improvement; residual psychotic acuity/ intake call to MOC pending; anticipate titrating Risperdal dosing up, still considering request for COM; CP reviewed with Nursing in Rounds 01/24/17 11:00 DAY UPDATE/EXAM: Nursing reports pt's paced improvement continues in paced manner - continues with observable guardedness, PI, degree of isolation/ on direct exam continues to evidence circumscribed PI but is conversant with me with good eye contact; understands my positive reinforcing comments on her c ompliance with her treatment plan including compliance with med; understands her Risperdal dosing will be increased to 3 mg bid. INTAKE/MOC - pending as MOC and temporary guardian on C/B ASSESSMENT/PLAN: continues early phase improvement b/w residual psychotic acuity / increase Risperdal to 3mg bid; reintegrative CP d/w Nursing in rounds; c/b expected from [facility] for collateral expansion of data 01/25/17 14:20 DAY UPDATE/EXAM: Nursing reports pt sustaining paced progress in clearing psychotic acuity - still in early phase as pt's PI observable/ on direct exam pt appears more relaxed and with better spontaneous eye contact b/w residual PI and obliquely makes delusional references to MOC with an angry tone; affect with broadening range and lessening flatness; agrees to work with [facility] after dC and knows her housing is being addressed; reinforced in her compliance with cares and meds and encouraged to eat in dining room ASSESSMENT/PLAN: diminished psychotic acuity/ no change in meds; CP to encourage all meals in DR - d/w Nursing in Rounds 01/26/17 14:42 DAY UPDATE/EXAM: Nursing reports paced gains over last 24 hrs evidenced by more organization of thought process, more visibility in milieu, improving ADL'S/ on direct exam pt makes consistent eye contact, appearance-hygiene improving; coherent conversant verbal mode and able to discuss alliance with accepting MHP referral and, if need be, working with the [facility]; positive reponse to reintegrative input during session. ASSESSMENT/PLAN: mid-phase in progress recompensating/ no change in meds; management plan d/w Nursing in Rounds with continued emphasis of increasing autonomy with ADL'S and reinforcing social ego functions. 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 ASSESSMENT/PLAN: improving course sustained with pt sharing more lifeline disclosure/ no change in meds, CP d/w Nursing in rounds; will reality test history with [facility] whom pt now accepts as her guardian and acknowledges her helpful support. Objective: Vital Signs Temp Pulse Resp BP Pulse Ox 36.8 C 70 14 97/56 L 95 01/25/17 06:00 01/27/17 06:22 01/27/17 06:22 01/27/17 06:22 01/27/17 06:22 ICD10 Worksheet Patient Problems: Problems Problem Status Onset Schizoaffective disorder Acute
[2017-01-28] MEDS: risperiDONE 2 MG TAB PO SCH ×2 (08:19→20:51)
[2017-01-28] MEDS: ACETAMINOPHEN 325 MG TAB PO PRN ×2 (08:19→20:51)
[2017-01-28] MEDS: hydrOXYzine HCL 25 MG TAB PO PRN ×3 (08:21→20:51)
[2017-01-28] MEDS: OLANZapine DISINTEGR 10 MG TAB PO PRN ×3 (08:21→20:51)
[2017-01-28] MEDS: NICOTINE POLACRILEX 2 MG GUM B PRN ×6 (08:22→20:54)
--- NOTE | 2017-01-28 12:08 | SOAPPROG ---
SOAP Progress Note Assessment/Plan: Assessment: Plan: 01/20/17 11:30 DAY UPDATE/EXAM: Nursing report pt is less isolative - eating in DR and attending selective groups, c/w cares and meds/ on exam presents as flat and constricted, residual PI with persecutory delusions but is more verbal and with better eye contact; acknowledges obliquely that she has guardian who is her MOC; responsive to reintegrative support; accepting increase in Risperdal dosing ASSESSMENT/PLAN: residual psychotic acuity but evidencing initial improvement/ will increase Risperdal to 2 mg bid; CP d/w Nursing in Rounds 01/23/17 08:00 DAY UPDATE/EXAM: Nursing reports that pt more visible in the milieu and attending selective groups; remains with regressed ADL's but is improving hygiene; c/w cares and meds/ on direct exam does engage and make good eye contact, spontaneously verbal, less guarded; states she won't brush hair because "I don' t want to look good and attract attention"; is responsive to reintegrative support and + reinforcement for meds compliance and socialization efforts ASSESSMENT/PLAN: early phase improvement; residual psychotic acuity/ intake call to MOC pending; anticipate titrating Risperdal dosing up, still considering request for COM; CP reviewed with Nursing in Rounds 01/24/17 11:00 DAY UPDATE/EXAM: Nursing reports pt's paced improvement continues in paced manner - continues with observable guardedness, PI, degree of isolation/ on direct exam continues to evidence circumscribed PI but is conversant with me with good eye contact; understands my positive reinforcing comments on her c ompliance with her treatment plan including compliance with med; understands her Risperdal dosing will be increased to 3 mg bid. INTAKE/MOC - pending as MOC and temporary guardian on C/B ASSESSMENT/PLAN: continues early phase improvement b/w residual psychotic acuity / increase Risperdal to 3mg bid; reintegrative CP d/w Nursing in rounds; c/b expected from [facility] for collateral expansion of data 01/25/17 14:20 DAY UPDATE/EXAM: Nursing reports pt sustaining paced progress in clearing psychotic acuity - still in early phase as pt's PI observable/ on direct exam pt appears more relaxed and with better spontaneous eye contact b/w residual PI and obliquely makes delusional references to MOC with an angry tone; affect with broadening range and lessening flatness; agrees to work with MHP after dC and knows her housing is being addressed; reinforced in her compliance with cares and meds and encouraged to eat in dining room ASSESSMENT/PLAN: diminished psychotic acuity/ no change in meds; CP to encourage all meals in DR - d/w Nursing in Rounds 01/26/17 14:42 DAY UPDATE/EXAM: Nursing reports paced gains over last 24 hrs evidenced by more organization of thought process, more visibility in milieu, improving ADL'S/ on direct exam pt makes consistent eye contact, appearance-hygiene improving; coherent conversant verbal mode and able to discuss alliance with accepting MHP referral and, if need be, working with the [facility]; positive reponse to reintegrative input during session. ASSESSMENT/PLAN: mid-phase in progress recompensating/ no change in meds; management plan d/w Nursing in Rounds with continued emphasis of increasing autonomy with ADL'S and reinforcing social ego functions. 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 ASSESSMENT/PLAN: improving course sustained with pt sharing more lifeline disclosure/ no change in meds, CP d/w Nursing in rounds; will reality test history with MOC whom pt now accepts as her guardian and acknowledges her helpful support. 01/28/17 12:02 DAY UPDATE/EXAM: Nursing reports pt sustaing engagement witn CP focus on socialization ADL's, sleep, and group attendance with progress on all fronts/ on direct exam pt discloses first psychiatric intervention was a one week hospitalization age 15 for depressive crisi with SI; she states no rx after that until emerging psychosis age 27; reminded pt of the information about lifeline history shared yesterday which she again reaffirmed; positivie response to my pointing out again the capacity for life functioning she carries as indicated by this history ASSESSMENT/PLAN: improving c ourse sustained with less psychotic residual observed qd and + gain a referenced above/ no change in meds or management plan ; reviewed case in Rounds with Nursing. Objective: Vital Signs Temp Pulse Resp BP Pulse Ox 36.6 C 107 H 14 109/84 H 93 01/28/17 08:01 01/28/17 08:01 01/27/17 06:22 01/28/17 08:01 01/28/17 08:01 ICD10 Worksheet Patient Problems: Problems Problem Status Onset Schizoaffective disorder Acute
--- NOTE | 2017-01-29 07:23 | SOAPPROG ---
SOAP Progress Note Assessment/Plan: Assessment: Plan: 01/20/17 11:30 DAY UPDATE/EXAM: Nursing report pt is less isolative - eating in DR and attending selective groups, c/w cares and meds/ on exam presents as flat and constricted, residual PI with persecutory delusions but is more verbal and with better eye contact; acknowledges obliquely that she has guardian who is her MOC; responsive to reintegrative support; accepting increase in Risperdal dosing ASSESSMENT/PLAN: residual psychotic acuity but evidencing initial improvement/ will increase Risperdal to 2 mg bid; CP d/w Nursing in Rounds 01/23/17 08:00 DAY UPDATE/EXAM: Nursing reports that pt more visible in the milieu and attending selective groups; remains with regressed ADL's but is improving hygiene; c/w cares and meds/ on direct exam does engage and make good eye contact, spontaneously verbal, less guarded; states she won't brush hair because "I don' t want to look good and attract attention"; is responsive to reintegrative support and + reinforcement for meds compliance and socialization efforts ASSESSMENT/PLAN: early phase improvement; residual psychotic acuity/ intake call to MOC pending; anticipate titrating Risperdal dosing up, still considering request for COM; CP reviewed with Nursing in Rounds 01/24/17 11:00 DAY UPDATE/EXAM: Nursing reports pt's paced improvement continues in paced manner - continues with observable guardedness, PI, degree of isolation/ on direct exam continues to evidence circumscribed PI but is conversant with me with good eye contact; understands my positive reinforcing comments on her c ompliance with her treatment plan including compliance with med; understands her Risperdal dosing will be increased to 3 mg bid. INTAKE/MOC - pending as MOC and temporary guardian on C/B ASSESSMENT/PLAN: continues early phase improvement b/w residual psychotic acuity / increase Risperdal to 3mg bid; reintegrative CP d/w Nursing in rounds; c/b expected from [facility] for collateral expansion of data 01/25/17 14:20 DAY UPDATE/EXAM: Nursing reports pt sustaining paced progress in clearing psychotic acuity - still in early phase as pt's PI observable/ on direct exam pt appears more relaxed and with better spontaneous eye contact b/w residual PI and obliquely makes delusional references to MOC with an angry tone; affect with broadening range and lessening flatness; agrees to work with MHP after dC and knows her housing is being addressed; reinforced in her compliance with cares and meds and encouraged to eat in dining room ASSESSMENT/PLAN: diminished psychotic acuity/ no change in meds; CP to encourage all meals in DR - d/w Nursing in Rounds 01/26/17 14:42 DAY UPDATE/EXAM: Nursing reports paced gains over last 24 hrs evidenced by more organization of thought process, more visibility in milieu, improving ADL'S/ on direct exam pt makes consistent eye contact, appearance-hygiene improving; coherent conversant verbal mode and able to discuss alliance with accepting MHP referral and, if need be, working with the [facility]; positive reponse to reintegrative input during session. ASSESSMENT/PLAN: mid-phase in progress recompensating/ no change in meds; management plan d/w Nursing in Rounds with continued emphasis of increasing autonomy with ADL'S and reinforcing social ego functions. 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 ASSESSMENT/PLAN: improving course sustained with pt sharing more lifeline disclosure/ no change in meds, CP d/w Nursing in rounds; will reality test history with MOC whom pt now accepts as her guardian and acknowledges her helpful support. 01/28/17 12:02 DAY UPDATE/EXAM: Nursing reports pt sustainINg engagement witn CP focus on socialization ADL's, sleep, and group attendance with progress on all fronts/ on direct exam pt discloses first psychiatric intervention was a one week hospitalization age 15 for depressive crisi with SI; she states no rx after that until emerging psychosis age 27; reminded pt of the information about lifeline history shared yesterday which she again reaffirmed; positive response to my pointing out again the capacity for life functioning she carries as indicated by this history ASSESSMENT/PLAN: improving course sustained with less psychotic residual observed qd and + gain a referenced above/ no change in meds or management plan ; reviewed case in Rounds with Nursing. 01/29/17 DAY 07/20' UPDATE/EXAM: Objective: Vital Signs Temp Pulse Resp BP Pulse Ox 36.6 C 73 14 85/52 L 94 01/28/17 08:01 01/29/17 06:37 01/29/17 06:37 01/29/17 06:37 01/29/17 06:37 ICD10 Worksheet Patient Problems: Problems Problem Status Onset Schizoaffective disorder Acute
[2017-01-29] MEDS: risperiDONE 2 MG TAB PO SCH ×2 (08:20→20:37)
[2017-01-29] MEDS: OLANZapine DISINTEGR 10 MG TAB PO PRN ×3 (08:21→20:37)
[2017-01-29] MEDS: ACETAMINOPHEN 325 MG TAB PO PRN ×3 (08:21→18:27)
[2017-01-29] MEDS: hydrOXYzine HCL 25 MG TAB PO PRN ×3 (08:21→16:04)
[2017-01-29] MEDS: NICOTINE POLACRILEX 2 MG GUM B PRN ×6 (08:28→20:37)
--- NOTE | 2017-01-30 07:05 | SOAPPROG ---
SOAP Progress Note Assessment/Plan: Assessment: Plan: 01/20/17 11:30 DAY UPDATE/EXAM: Nursing report pt is less isolative - eating in DR and attending selective groups, c/w cares and meds/ on exam presents as flat and constricted, residual PI with persecutory delusions but is more verbal and with better eye contact; acknowledges obliquely that she has guardian who is her MOC; responsive to reintegrative support; accepting increase in Risperdal dosing ASSESSMENT/PLAN: residual psychotic acuity but evidencing initial improvement/ will increase Risperdal to 2 mg bid; CP d/w Nursing in Rounds 01/23/17 08:00 DAY UPDATE/EXAM: Nursing reports that pt more visible in the milieu and attending selective groups; remains with regressed ADL's but is improving hygiene; c/w cares and meds/ on direct exam does engage and make good eye contact, spontaneously verbal, less guarded; states she won't brush hair because "I don' t want to look good and attract attention"; is responsive to reintegrative support and + reinforcement for meds compliance and socialization efforts ASSESSMENT/PLAN: early phase improvement; residual psychotic acuity/ intake call to MOC pending; anticipate titrating Risperdal dosing up, still considering request for COM; CP reviewed with Nursing in Rounds 01/24/17 11:00 DAY UPDATE/EXAM: Nursing reports pt's paced improvement continues in paced manner - continues with observable guardedness, PI, degree of isolation/ on direct exam continues to evidence circumscribed PI but is conversant with me with good eye contact; understands my positive reinforcing comments on her c ompliance with her treatment plan including compliance with med; understands her Risperdal dosing will be increased to 3 mg bid. INTAKE/MOC - pending as MOC and temporary guardian on C/B ASSESSMENT/PLAN: continues early phase improvement b/w residual psychotic acuity / increase Risperdal to 3mg bid; reintegrative CP d/w Nursing in rounds; c/b expected from [facility] for collateral expansion of data 01/25/17 14:20 DAY UPDATE/EXAM: Nursing reports pt sustaining paced progress in clearing psychotic acuity - still in early phase as pt's PI observable/ on direct exam pt appears more relaxed and with better spontaneous eye contact b/w residual PI and obliquely makes delusional references to MOC with an angry tone; affect with broadening range and lessening flatness; agrees to work with MHP after dC and knows her housing is being addressed; reinforced in her compliance with cares and meds and encouraged to eat in dining room ASSESSMENT/PLAN: diminished psychotic acuity/ no change in meds; CP to encourage all meals in DR - d/w Nursing in Rounds 01/26/17 14:42 DAY UPDATE/EXAM: Nursing reports paced gains over last 24 hrs evidenced by more organization of thought process, more visibility in milieu, improving ADL'S/ on direct exam pt makes consistent eye contact, appearance-hygiene improving; coherent conversant verbal mode and able to discuss alliance with accepting MHP referral and, if need be, working with the [facility]; positive reponse to reintegrative input during session. ASSESSMENT/PLAN: mid-phase in progress recompensating/ no change in meds; management plan d/w Nursing in Rounds with continued emphasis of increasing autonomy with ADL'S and reinforcing social ego functions. 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 ASSESSMENT/PLAN: improving course sustained with pt sharing more lifeline disclosure/ no change in meds, CP d/w Nursing in rounds; will reality test history with MOC whom pt now accepts as her guardian and acknowledges her helpful support. 01/28/17 12:02 DAY UPDATE/EXAM: Nursing reports pt sustaining engagement witn CP focus on socialization ADL's, sleep, and group attendance with progress on all fronts/ on direct exam pt discloses first psychiatric intervention was a one week hospitalization age 15 for depressive crisis with SI; she states no rx after that until emerging psychosis age 27; reminded pt of the information about lifeline history shared yesterday which she again reaffirmed; positive response to my pointing out again the capacity for life functioning she carries as indicated by this history ASSESSMENT/PLAN: improving course sustained with less psychotic residual observed qd and + gain a referenced above/ no change in meds or management plan ; reviewed case in Rounds with Nursing. 01/29/17 08;07/20' UPDATE/EXAM: Nursing reports continued descriptiVe and functional improvement noted as pt engages the Care Plan/ on direct exam pt evidences broadening range of affect, much less guarded, less flattening in affective expression; continues with + alliance about engaging post DC treatment plan with P. ASSESSMENT/PLAN: improving trend continues with continues progress in resolving residual psychotic acuity and moving toward stable baseline allowing move into DC planning phase/ no change inmeds or management plan; initiate discussion of which community services indicated under the [facility] umbrella and options for housing at time of DC Objective: Vital Signs Temp Pulse Resp BP Pulse Ox 36.6 C 74 14 98/57 L 94 01/28/17 08:01 01/30/17 06:00 01/30/17 06:00 01/30/17 06:00 01/30/17 06:00 ICD10 Worksheet Patient Problems: Problems Problem Status Onset Schizoaffective disorder Acute
[2017-01-30] MEDS: ACETAMINOPHEN 325 MG TAB PO PRN ×2 (08:26→22:07)
[2017-01-30] MEDS: OLANZapine DISINTEGR 10 MG TAB PO PRN ×3 (08:26→22:07)
[2017-01-30] MEDS: risperiDONE 2 MG TAB PO SCH ×2 (08:26→22:00)
[2017-01-30] MEDS: NICOTINE POLACRILEX 2 MG GUM B PRN ×4 (08:27→22:08)
[2017-01-30] MEDS: hydrOXYzine HCL 25 MG TAB PO PRN ×3 (08:27→16:11)
--- NOTE | 2017-01-30 13:47 | SOAPPROG ---
SOAP Progress Note Assessment/Plan: Assessment: Plan: 01/20/17 11:30 DAY UPDATE/EXAM: Nursing report pt is less isolative - eating in DR and attending selective groups, c/w cares and meds/ on exam presents as flat and constricted, residual PI with persecutory delusions but is more verbal and with better eye contact; acknowledges obliquely that she has guardian who is her MOC; responsive to reintegrative support; accepting increase in Risperdal dosing ASSESSMENT/PLAN: residual psychotic acuity but evidencing initial improvement/ will increase Risperdal to 2 mg bid; CP d/w Nursing in Rounds 01/23/17 08:00 DAY UPDATE/EXAM: Nursing reports that pt more visible in the milieu and attending selective groups; remains with regressed ADL's but is improving hygiene; c/w cares and meds/ on direct exam does engage and make good eye contact, spontaneously verbal, less guarded; states she won't brush hair because "I don' t want to look good and attract attention"; is responsive to reintegrative support and + reinforcement for meds compliance and socialization efforts ASSESSMENT/PLAN: early phase improvement; residual psychotic acuity/ intake call to MOC pending; anticipate titrating Risperdal dosing up, still considering request for COM; CP reviewed with Nursing in Rounds 01/24/17 11:00 DAY UPDATE/EXAM: Nursing reports pt's paced improvement continues in paced manner - continues with observable guardedness, PI, degree of isolation/ on direct exam continues to evidence circumscribed PI but is conversant with me with good eye contact; understands my positive reinforcing comments on her c ompliance with her treatment plan including compliance with med; understands her Risperdal dosing will be increased to 3 mg bid. INTAKE/MOC - pending as MOC and temporary guardian on C/B ASSESSMENT/PLAN: continues early phase improvement b/w residual psychotic acuity / increase Risperdal to 3mg bid; reintegrative CP d/w Nursing in rounds; c/b expected from [facility] for collateral expansion of data 01/25/17 14:20 DAY UPDATE/EXAM: Nursing reports pt sustaining paced progress in clearing psychotic acuity - still in early phase as pt's PI observable/ on direct exam pt appears more relaxed and with better spontaneous eye contact b/w residual PI and obliquely makes delusional references to MOC with an angry tone; affect with broadening range and lessening flatness; agrees to work with MHP after dC and knows her housing is being addressed; reinforced in her compliance with cares and meds and encouraged to eat in dining room ASSESSMENT/PLAN: diminished psychotic acuity/ no change in meds; CP to encourage all meals in DR - d/w Nursing in Rounds 01/26/17 14:42 DAY UPDATE/EXAM: Nursing reports paced gains over last 24 hrs evidenced by more organization of thought process, more visibility in milieu, improving ADL'S/ on direct exam pt makes consistent eye contact, appearance-hygiene improving; coherent conversant verbal mode and able to discuss alliance with accepting MHP referral and, if need be, working with the [facility]; positive reponse to reintegrative input during session. ASSESSMENT/PLAN: mid-phase in progress recompensating/ no change in meds; management plan d/w Nursing in Rounds with continued emphasis of increasing autonomy with ADL'S and reinforcing social ego functions. 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 ASSESSMENT/PLAN: improving course sustained with pt sharing more lifeline disclosure/ no change in meds, CP d/w Nursing in rounds; will reality test history with MOC whom pt now accepts as her guardian and acknowledges her helpful support. 01/28/17 12:02 DAY UPDATE/EXAM: Nursing reports pt sustaining engagement witn CP focus on socialization ADL's, sleep, and group attendance with progress on all fronts/ on direct exam pt discloses first psychiatric intervention was a one week hospitalization age 15 for depressive crisis with SI; she states no rx after that until emerging psychosis age 27; reminded pt of the information about lifeline history shared yesterday which she again reaffirmed; positive response to my pointing out again the capacity for life functioning she carries as indicated by this history ASSESSMENT/PLAN: improving course sustained with less psychotic residual observed qd and + gain a referenced above/ no change in meds or management plan ; reviewed case in Rounds with Nursing. 01/29/17 08; UPDATE/EXAM: Nursing reports continued descriptie and functional improvement noted as pt engages the Care Plan/ on direct exam pt evidences broadening range of affect, much less guarded, less flattening in affective expression; continues with + alliance about engaging post DC treatment plan with P. ASSESSMENT/PLAN: improving trend continues with continues progress in resolving residual psychotic acuity and moving toward stable baseline allowing move into DC planning phase/ no change in meds or management plan; initiate discussion of which community services indicated under the [facility] umbrella and options for housing at time of DC 01/30/17 09:00 DAY UPDATE/EXAM: Nursing reports paced improvement continues - is using more prns in last 1-2 days for reasons that are unclear/ on direct exam is engagable, conversant, able to comment on her subjective improvement and wants to know more about [facility] services; responsive to reintegrative support; unable to explain her demands for more prn meds recently ASSESSMENT/PLAN: recompensation progress continues - residual guardedness and social inhibitions; likely residual IOR/ will clarify further issue of increased prn meds use; also will explore probating pt's compliance with psychiatric treatment by contacting pt's senior commercial loan officer per assist from CC; also expedite obtaining P records and contacting P for DC planning Objective: Vital Signs Temp Pulse Resp BP Pulse Ox 36.6 C 74 14 98/57 L 94 01/28/17 08:01 01/30/17 06:00 01/30/17 06:00 01/30/17 06:00 01/30/17 06:00 ICD10 Worksheet Patient Problems: Problems Problem Status Onset Schizoaffective disorder Acute
--- NOTE | 2017-01-31 07:09 | SOAPPROG ---
SOAP Progress Note Assessment/Plan: Assessment: Plan: 01/20/17 11:30 DAY UPDATE/EXAM: Nursing report pt is less isolative - eating in DR and attending selective groups, c/w cares and meds/ on exam presents as flat and constricted, residual PI with persecutory delusions but is more verbal and with better eye contact; acknowledges obliquely that she has guardian who is her MOC; responsive to reintegrative support; accepting increase in Risperdal dosing ASSESSMENT/PLAN: residual psychotic acuity but evidencing initial improvement/ will increase Risperdal to 2 mg bid; CP d/w Nursing in Rounds 01/23/17 08:00 DAY UPDATE/EXAM: Nursing reports that pt more visible in the milieu and attending selective groups; remains with regressed ADL's but is improving hygiene; c/w cares and meds/ on direct exam does engage and make good eye contact, spontaneously verbal, less guarded; states she won't brush hair because "I don' t want to look good and attract attention"; is responsive to reintegrative support and + reinforcement for meds compliance and socialization efforts ASSESSMENT/PLAN: early phase improvement; residual psychotic acuity/ intake call to MOC pending; anticipate titrating Risperdal dosing up, still considering request for COM; CP reviewed with Nursing in Rounds 01/24/17 11:00 DAY UPDATE/EXAM: Nursing reports pt's paced improvement continues in paced manner - continues with observable guardedness, PI, degree of isolation/ on direct exam continues to evidence circumscribed PI but is conversant with me with good eye contact; understands my positive reinforcing comments on her c ompliance with her treatment plan including compliance with med; understands her Risperdal dosing will be increased to 3 mg bid. INTAKE/MOC - pending as MOC and temporary guardian on C/B ASSESSMENT/PLAN: continues early phase improvement b/w residual psychotic acuity / increase Risperdal to 3mg bid; reintegrative CP d/w Nursing in rounds; c/b expected from [facility] for collateral expansion of data 01/25/17 14:20 DAY UPDATE/EXAM: Nursing reports pt sustaining paced progress in clearing psychotic acuity - still in early phase as pt's PI observable/ on direct exam pt appears more relaxed and with better spontaneous eye contact b/w residual PI and obliquely makes delusional references to MOC with an angry tone; affect with broadening range and lessening flatness; agrees to work with MHP after dC and knows her housing is being addressed; reinforced in her compliance with cares and meds and encouraged to eat in dining room ASSESSMENT/PLAN: diminished psychotic acuity/ no change in meds; CP to encourage all meals in DR - d/w Nursing in Rounds 01/26/17 14:42 DAY UPDATE/EXAM: Nursing reports paced gains over last 24 hrs evidenced by more organization of thought process, more visibility in milieu, improving ADL'S/ on direct exam pt makes consistent eye contact, appearance-hygiene improving; coherent conversant verbal mode and able to discuss alliance with accepting MHP referral and, if need be, working with the [facility]; positive reponse to reintegrative input during session. ASSESSMENT/PLAN: mid-phase in progress recompensating/ no change in meds; management plan d/w Nursing in Rounds with continued emphasis of increasing autonomy with ADL'S and reinforcing social ego functions. 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 ASSESSMENT/PLAN: improving course sustained with pt sharing more lifeline disclosure/ no change in meds, CP d/w Nursing in rounds; will reality test history with MOC whom pt now accepts as her guardian and acknowledges her helpful support. 01/28/17 12:02 DAY UPDATE/EXAM: Nursing reports pt sustaining engagement witn CP focus on socialization ADL's, sleep, and group attendance with progress on all fronts/ on direct exam pt discloses first psychiatric intervention was a one week hospitalization age 15 for depressive crisis with SI; she states no rx after that until emerging psychosis age 27; reminded pt of the information about lifeline history shared yesterday which she again reaffirmed; positive response to my pointing out again the capacity for life functioning she carries as indicated by this history ASSESSMENT/PLAN: improving course sustained with less psychotic residual observed qd and + gain a referenced above/ no change in meds or management plan ; reviewed case in Rounds with Nursing. 01/29/17 08; UPDATE/EXAM: Nursing reports continued descriptive and functional improvement noted as pt engages the Care Plan/ on direct exam pt evidences broadening range of affect, much less guarded, less flattening in affective expression; continues with + alliance about engaging post DC treatment plan with P. ASSESSMENT/PLAN: improving trend continues with continues progress in resolving residual psychotic acuity and moving toward stable baseline allowing move into DC planning phase/ no change in meds or management plan; initiate discussion of which community services indicated under the [facility] umbrella and options for housing at time of DC 01/30/17 09:00 DAY UPDATE/EXAM: Nursing reports paced improvement continues - is using more prns in last 1-2 days for reasons that are unclear/ on direct exam is engagable, conversant, able to comment on her subjective improvement and wants to know more about [facility] services; responsive to reintegrative support; unable to explain her demands for more prn meds recently ASSESSMENT/PLAN: recompensation progress continues - residual guardedness and social inhibitions; likely residual IOR/ will clarify further issue of increased prn meds use; also will explore probating pt's compliance with psychiatric treatment by contacting pt's access control officer per assist from CC; also expedite obtaining [facility] records and contacting [facility] for DC planning 01/31/17 UPDATE/EXAM: Objective: Vital Signs Temp Pulse Resp BP Pulse Ox 36.7 C 72 12 100/63 96 01/31/17 06:00 01/31/17 06:00 01/31/17 06:00 01/31/17 06:00 01/31/17 06:00 ICD10 Worksheet Patient Problems: Problems Problem Status Onset Schizoaffective disorder Acute
[2017-01-31] MEDS: hydrOXYzine HCL 25 MG TAB PO PRN ×3 (08:47→19:18)
[2017-01-31] MEDS: ACETAMINOPHEN 325 MG TAB PO PRN ×2 (08:47→19:18)
[2017-01-31] MEDS: OLANZapine DISINTEGR 10 MG TAB PO PRN ×2 (08:47→19:18)
[2017-01-31] MEDS: risperiDONE 2 MG TAB PO SCH (08:48)
[2017-01-31] MEDS: NICOTINE POLACRILEX 2 MG GUM B PRN ×2 (08:48→11:28)
--- NOTE | 2017-01-31 11:32 | SOAPPROG ---
SOAP Progress Note Assessment/Plan: Assessment: Plan: 01/20/17 11:30 DAY UPDATE/EXAM: Nursing report pt is less isolative - eating in DR and attending selective groups, c/w cares and meds/ on exam presents as flat and constricted, residual PI with persecutory delusions but is more verbal and with better eye contact; acknowledges obliquely that she has guardian who is her MOC; responsive to reintegrative support; accepting increase in Risperdal dosing ASSESSMENT/PLAN: residual psychotic acuity but evidencing initial improvement/ will increase Risperdal to 2 mg bid; CP d/w Nursing in Rounds 01/23/17 08:00 DAY UPDATE/EXAM: Nursing reports that pt more visible in the milieu and attending selective groups; remains with regressed ADL's but is improving hygiene; c/w cares and meds/ on direct exam does engage and make good eye contact, spontaneously verbal, less guarded; states she won't brush hair because "I don' t want to look good and attract attention"; is responsive to reintegrative support and + reinforcement for meds compliance and socialization efforts ASSESSMENT/PLAN: early phase improvement; residual psychotic acuity/ intake call to MOC pending; anticipate titrating Risperdal dosing up, still considering request for COM; CP reviewed with Nursing in Rounds 01/24/17 11:00 DAY UPDATE/EXAM: Nursing reports pt's paced improvement continues in paced manner - continues with observable guardedness, PI, degree of isolation/ on direct exam continues to evidence circumscribed PI but is conversant with me with good eye contact; understands my positive reinforcing comments on her c ompliance with her treatment plan including compliance with med; understands her Risperdal dosing will be increased to 3 mg bid. INTAKE/MOC - pending as MOC and temporary guardian on C/B ASSESSMENT/PLAN: continues early phase improvement b/w residual psychotic acuity / increase Risperdal to 3mg bid; reintegrative CP d/w Nursing in rounds; c/b expected from [facility] for collateral expansion of data 01/25/17 14:20 DAY UPDATE/EXAM: Nursing reports pt sustaining paced progress in clearing psychotic acuity - still in early phase as pt's PI observable/ on direct exam pt appears more relaxed and with better spontaneous eye contact b/w residual PI and obliquely makes delusional references to MOC with an angry tone; affect with broadening range and lessening flatness; agrees to work with MHP after dC and knows her housing is being addressed; reinforced in her compliance with cares and meds and encouraged to eat in dining room ASSESSMENT/PLAN: diminished psychotic acuity/ no change in meds; CP to encourage all meals in DR - d/w Nursing in Rounds 01/26/17 14:42 DAY UPDATE/EXAM: Nursing reports paced gains over last 24 hrs evidenced by more organization of thought process, more visibility in milieu, improving ADL'S/ on direct exam pt makes consistent eye contact, appearance-hygiene improving; coherent conversant verbal mode and able to discuss alliance with accepting MHP referral and, if need be, working with the [facility]; positive reponse to reintegrative input during session. ASSESSMENT/PLAN: mid-phase in progress recompensating/ no change in meds; management plan d/w Nursing in Rounds with continued emphasis of increasing autonomy with ADL'S and reinforcing social ego functions. 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 ASSESSMENT/PLAN: improving course sustained with pt sharing more lifeline disclosure/ no change in meds, CP d/w Nursing in rounds; will reality test history with MOC whom pt now accepts as her guardian and acknowledges her helpful support. 01/28/17 12:02 DAY UPDATE/EXAM: Nursing reports pt sustaining engagement witn CP focus on socialization ADL's, sleep, and group attendance with progress on all fronts/ on direct exam pt discloses first psychiatric intervention was a one week hospitalization age 15 for depressive crisis with SI; she states no rx after that until emerging psychosis age 27; reminded pt of the information about lifeline history shared yesterday which she again reaffirmed; positive response to my pointing out again the capacity for life functioning she carries as indicated by this history ASSESSMENT/PLAN: improving course sustained with less psychotic residual observed qd and + gain a referenced above/ no change in meds or management plan ; reviewed case in Rounds with Nursing. 01/29/17 08;30 UPDATE/EXAM: Nursing reports continued descriptive and functional improvement noted as pt engages the Care Plan/ on direct exam pt evidences broadening range of affect, much less guarded, less flattening in affective expression; continues with + alliance about engaging post DC treatment plan with P. ASSESSMENT/PLAN: improving trend continues with continues progress in resolving residual psychotic acuity and moving toward stable baseline allowing move into DC planning phase/ no change in meds or management plan; initiate discussion of which community services indicated under the [facility] umbrella and options for housing at time of DC 01/30/17 09:00 DAY UPDATE/EXAM: Nursing reports paced improvement continues - is using more prns in last 1-2 days for reasons that are unclear/ on direct exam is engagable, conversant, able to comment on her subjective improvement and wants to know more about [facility] services; responsive to reintegrative support; unable to explain her demands for more prn meds recently ASSESSMENT/PLAN: recompensation progress continues - residual guardedness and social inhibitions; likely residual IOR/ will clarify further issue of increased prn meds use; also will explore probating pt's compliance with psychiatric treatment by contacting pt's house officer per assist from CC; also expedite obtaining P records and contacting [facility] for DC planning 01/31/17 09:00 DAY UPDATE/EXAM: Nusing reports pt slept, relates in more guarded manner but remains present in the milieu and dining room, not as present in groups/ on direct exam pt expresses more overt PI and IOR, doesn't disagree that anxiety about beginning DC planning may be triggering more distrust about "what's true" . She states she's never lived in a mcfp and would prefer living in own apartment at DC; reiterates willingness to work with MHP again and comply with meds which we discuss in concrete detail as essential to continue on stabilization track; understands I will be increasing Risperdal to 8 mg qd. ASSESSMENT/PLAN: regression on exam with increase IOR/PI - likely a/w DC planning phase/ will increase Risperdal to 8 mg qd; L/M with public relations consultant for C/B to discuss possibility to move to probated DC plan to assure compliance w ith treatment post DC, Objective: Vital Signs Temp Pulse Resp BP Pulse Ox 36.7 C 72 12 100/63 96 01/31/17 06:00 01/31/17 06:00 01/31/17 06:00 01/31/17 06:00 01/31/17 06:00 ICD10 Worksheet Patient Problems: Problems Problem Status Onset Schizoaffective disorder Acute
[2017-01-31] MEDS: NICOTINE 21 MG/24 HR PATCH TD SCH (12:14)
[2017-01-31] MEDS ORDERED: risperiDONE 0.5 MG TAB PO SCH (21:00)
--- NOTE | 2017-02-01 06:49 | SOAPPROG ---
SOAP Progress Note Assessment/Plan: Assessment: Plan: 01/20/17 11:30 DAY UPDATE/EXAM: Nursing report pt is less isolative - eating in DR and attending selective groups, c/w cares and meds/ on exam presents as flat and constricted, residual PI with persecutory delusions but is more verbal and with better eye contact; acknowledges obliquely that she has guardian who is her MOC; responsive to reintegrative support; accepting increase in Risperdal dosing ASSESSMENT/PLAN: residual psychotic acuity but evidencing initial improvement/ will increase Risperdal to 2 mg bid; CP d/w Nursing in Rounds 01/23/17 08:00 DAY UPDATE/EXAM: Nursing reports that pt more visible in the milieu and attending selective groups; remains with regressed ADL's but is improving hygiene; c/w cares and meds/ on direct exam does engage and make good eye contact, spontaneously verbal, less guarded; states she won't brush hair because "I don' t want to look good and attract attention"; is responsive to reintegrative support and + reinforcement for meds compliance and socialization efforts ASSESSMENT/PLAN: early phase improvement; residual psychotic acuity/ intake call to MOC pending; anticipate titrating Risperdal dosing up, still considering request for COM; CP reviewed with Nursing in Rounds 01/24/17 11:00 DAY UPDATE/EXAM: Nursing reports pt's paced improvement continues in paced manner - continues with observable guardedness, PI, degree of isolation/ on direct exam continues to evidence circumscribed PI but is conversant with me with good eye contact; understands my positive reinforcing comments on her c ompliance with her treatment plan including compliance with med; understands her Risperdal dosing will be increased to 3 mg bid. INTAKE/MOC - pending as MOC and temporary guardian on C/B ASSESSMENT/PLAN: continues early phase improvement b/w residual psychotic acuity / increase Risperdal to 3mg bid; reintegrative CP d/w Nursing in rounds; c/b expected from [facility] for collateral expansion of data 01/25/17 14:20 DAY UPDATE/EXAM: Nursing reports pt sustaining paced progress in clearing psychotic acuity - still in early phase as pt's PI observable/ on direct exam pt appears more relaxed and with better spontaneous eye contact b/w residual PI and obliquely makes delusional references to MOC with an angry tone; affect with broadening range and lessening flatness; agrees to work with MHP after dC and knows her housing is being addressed; reinforced in her compliance with cares and meds and encouraged to eat in dining room ASSESSMENT/PLAN: diminished psychotic acuity/ no change in meds; CP to encourage all meals in DR - d/w Nursing in Rounds 01/26/17 14:42 DAY UPDATE/EXAM: Nursing reports paced gains over last 24 hrs evidenced by more organization of thought process, more visibility in milieu, improving ADL'S/ on direct exam pt makes consistent eye contact, appearance-hygiene improving; coherent conversant verbal mode and able to discuss alliance with accepting MHP referral and, if need be, working with the [facility]; positive reponse to reintegrative input during session. ASSESSMENT/PLAN: mid-phase in progress recompensating/ no change in meds; management plan d/w Nursing in Rounds with continued emphasis of increasing autonomy with ADL'S and reinforcing social ego functions. 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 ASSESSMENT/PLAN: improving course sustained with pt sharing more lifeline disclosure/ no change in meds, CP d/w Nursing in rounds; will reality test history with MOC whom pt now accepts as her guardian and acknowledges her helpful support. 01/28/17 12:02 DAY UPDATE/EXAM: Nursing reports pt sustaining engagement witn CP focus on socialization ADL's, sleep, and group attendance with progress on all fronts/ on direct exam pt discloses first psychiatric intervention was a one week hospitalization age 15 for depressive crisis with SI; she states no rx after that until emerging psychosis age 27; reminded pt of the information about lifeline history shared yesterday which she again reaffirmed; positive response to my pointing out again the capacity for life functioning she carries as indicated by this history ASSESSMENT/PLAN: improving course sustained with less psychotic residual observed qd and + gain a referenced above/ no change in meds or management plan ; reviewed case in Rounds with Nursing. 01/29/17 08;30 UPDATE/EXAM: Nursing reports continued descriptive and functional improvement noted as pt engages the Care Plan/ on direct exam pt evidences broadening range of affect, much less guarded, less flattening in affective expression; continues with + alliance about engaging post DC treatment plan with P. ASSESSMENT/PLAN: improving trend continues with continues progress in resolving residual psychotic acuity and moving toward stable baseline allowing move into DC planning phase/ no change in meds or management plan; initiate discussion of which community services indicated under the [facility] umbrella and options for housing at time of DC 01/30/17 09:00 DAY UPDATE/EXAM: Nursing reports paced improvement continues - is using more prns in last 1-2 days for reasons that are unclear/ on direct exam is engagable, conversant, able to comment on her subjective improvement and wants to know more about [facility] services; responsive to reintegrative support; unable to explain her demands for more prn meds recently ASSESSMENT/PLAN: recompensation progress continues - residual guardedness and social inhibitions; likely residual IOR/ will clarify further issue of increased prn meds use; also will explore probating pt's compliance with psychiatric treatment by contacting pt's intelligence officer per assist from CC; also expedite obtaining P records and contacting [facility] for DC planning 01/31/17 09:00 DAY UPDATE/EXAM: Nusing reports pt slept, relates in more guarded manner but remains present in the milieu and dining room, not as present in groups/ on direct exam pt expresses more overt PI and IOR, doesn't disagree that anxiety about beginning DC planning may be triggering more distrust about "what's true" . She states she's never lived in a snf and would prefer living in own apartment at DC; reiterates willingness to work with MHP again and comply with meds which we discuss in concrete detail as essential to continue on stabilization track; understands I will be increasing Risperdal to 8 mg qd. ASSESSMENT/PLAN: regression on exam with increase IOR/PI - likely a/w DC planning phase/ will increase Risperdal to 8 mg qd; L/M with public works manager for C/B to discuss possibility to move to probated DC plan to assure compliance w ith treatment post DC, 02/01/17 DAY ' UPDDATE/EXAM Objective: Vital Signs Temp Pulse Resp BP Pulse Ox 36.4 C 95 14 129/79 H 96 02/01/17 06:00 02/01/17 06:00 02/01/17 06:00 02/01/17 06:00 02/01/17 06:00 ICD10 Worksheet Patient Problems: Problems Problem Status Onset Schizoaffective disorder Acute
[2017-02-01] MEDS: NICOTINE POLACRILEX 2 MG GUM B PRN ×4 (09:03→18:28)
[2017-02-01] MEDS: NICOTINE 21 MG/24 HR PATCH TD SCH (09:03)
[2017-02-01] MEDS: risperiDONE 2 MG TAB PO SCH ×2 (09:04→21:00)
[2017-02-01] MEDS: OLANZapine DISINTEGR 10 MG TAB PO PRN ×3 (09:20→21:01)
[2017-02-01] MEDS: ACETAMINOPHEN 325 MG TAB PO PRN ×4 (09:20→22:31)
[2017-02-01] MEDS: hydrOXYzine HCL 25 MG TAB PO PRN ×3 (09:21→21:01)
--- NOTE | 2017-02-01 11:31 | SOAPPROG ---
SOAP Progress Note Assessment/Plan: Assessment: Plan: 01/20/17 11:30 DAY UPDATE/EXAM: Nursing report pt is less isolative - eating in DR and attending selective groups, c/w cares and meds/ on exam presents as flat and constricted, residual PI with persecutory delusions but is more verbal and with better eye contact; acknowledges obliquely that she has guardian who is her MOC; responsive to reintegrative support; accepting increase in Risperdal dosing ASSESSMENT/PLAN: residual psychotic acuity but evidencing initial improvement/ will increase Risperdal to 2 mg bid; CP d/w Nursing in Rounds 01/23/17 08:00 DAY UPDATE/EXAM: Nursing reports that pt more visible in the milieu and attending selective groups; remains with regressed ADL's but is improving hygiene; c/w cares and meds/ on direct exam does engage and make good eye contact, spontaneously verbal, less guarded; states she won't brush hair because "I don' t want to look good and attract attention"; is responsive to reintegrative support and + reinforcement for meds compliance and socialization efforts ASSESSMENT/PLAN: early phase improvement; residual psychotic acuity/ intake call to MOC pending; anticipate titrating Risperdal dosing up, still considering request for COM; CP reviewed with Nursing in Rounds 01/24/17 11:00 DAY UPDATE/EXAM: Nursing reports pt's paced improvement continues in paced manner - continues with observable guardedness, PI, degree of isolation/ on direct exam continues to evidence circumscribed PI but is conversant with me with good eye contact; understands my positive reinforcing comments on her c ompliance with her treatment plan including compliance with med; understands her Risperdal dosing will be increased to 3 mg bid. INTAKE/MOC - pending as MOC and temporary guardian on C/B ASSESSMENT/PLAN: continues early phase improvement b/w residual psychotic acuity / increase Risperdal to 3mg bid; reintegrative CP d/w Nursing in rounds; c/b expected from [facility] for collateral expansion of data 01/25/17 14:20 DAY UPDATE/EXAM: Nursing reports pt sustaining paced progress in clearing psychotic acuity - still in early phase as pt's PI observable/ on direct exam pt appears more relaxed and with better spontaneous eye contact b/w residual PI and obliquely makes delusional references to MOC with an angry tone; affect with broadening range and lessening flatness; agrees to work with MHP after dC and knows her housing is being addressed; reinforced in her compliance with cares and meds and encouraged to eat in dining room ASSESSMENT/PLAN: diminished psychotic acuity/ no change in meds; CP to encourage all meals in DR - d/w Nursing in Rounds 01/26/17 14:42 DAY UPDATE/EXAM: Nursing reports paced gains over last 24 hrs evidenced by more organization of thought process, more visibility in milieu, improving ADL'S/ on direct exam pt makes consistent eye contact, appearance-hygiene improving; coherent conversant verbal mode and able to discuss alliance with accepting MHP referral and, if need be, working with the [facility]; positive reponse to reintegrative input during session. ASSESSMENT/PLAN: mid-phase in progress recompensating/ no change in meds; management plan d/w Nursing in Rounds with continued emphasis of increasing autonomy with ADL'S and reinforcing social ego functions. 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 ASSESSMENT/PLAN: improving course sustained with pt sharing more lifeline disclosure/ no change in meds, CP d/w Nursing in rounds; will reality test history with MOC whom pt now accepts as her guardian and acknowledges her helpful support. 01/28/17 12:02 DAY UPDATE/EXAM: Nursing reports pt sustaining engagement witn CP focus on socialization ADL's, sleep, and group attendance with progress on all fronts/ on direct exam pt discloses first psychiatric intervention was a one week hospitalization age 15 for depressive crisis with SI; she states no rx after that until emerging psychosis age 27; reminded pt of the information about lifeline history shared yesterday which she again reaffirmed; positive response to my pointing out again the capacity for life functioning she carries as indicated by this history ASSESSMENT/PLAN: improving course sustained with less psychotic residual observed qd and + gain a referenced above/ no change in meds or management plan ; reviewed case in Rounds with Nursing. 01/29/17 08;30 UPDATE/EXAM: Nursing reports continued descriptive and functional improvement noted as pt engages the Care Plan/ on direct exam pt evidences broadening range of affect, much less guarded, less flattening in affective expression; continues with + alliance about engaging post DC treatment plan with P. ASSESSMENT/PLAN: improving trend continues with continues progress in resolving residual psychotic acuity and moving toward stable baseline allowing move into DC planning phase/ no change in meds or management plan; initiate discussion of which community services indicated under the [facility] umbrella and options for housing at time of DC 01/30/17 09:00 DAY UPDATE/EXAM: Nursing reports paced improvement continues - is using more prns in last 1-2 days for reasons that are unclear/ on direct exam is engagable, conversant, able to comment on her subjective improvement and wants to know more about [facility] services; responsive to reintegrative support; unable to explain her demands for more prn meds recently ASSESSMENT/PLAN: recompensation progress continues - residual guardedness and social inhibitions; likely residual IOR/ will clarify further issue of increased prn meds use; also will explore probating pt's compliance with psychiatric treatment by contacting pt's aboriginal liaison officer per assist from CC; also expedite obtaining P records and contacting [facility] for DC planning 01/31/17 09:00 DAY UPDATE/EXAM: Nusing reports pt slept, relates in more guarded manner but remains present in the milieu and dining room, not as present in groups/ on direct exam pt expresses more overt PI and IOR, doesn't disagree that anxiety about beginning DC planning may be triggering more distrust about "what's true" . She states she's never lived in a care home and would prefer living in own apartment at DC; reiterates willingness to work with [facility] again and comply with meds which we discuss in concrete detail as essential to continue on stabilization track; understands I will be increasing Risperdal to 8 mg qd. ASSESSMENT/PLAN: regression on exam with increase IOR/PI - likely a/w DC planning phase/ will increase Risperdal to 8 mg qd; L/M with public health sanitarian for C/B to discuss possibility to move to probated DC plan to assure compliance w ith treatment post DC, 02/01/17 DAY ' UPDATE/EXAM: Nursing reports pt slept well, sustaining paced gains in resolving residual paranoid acuity and is spending more time in milieu and improving group attendance, reversing regression seen 2 days ago; on direct exam responds well to reintegrative inputs as we discuss current progress inpt goals of improving comfort being with and around others, attending to ADL's and the value of using these gains on DC in the community; residual PI and IOR are present but less visible. ASSESSMENT/PLAN: reversing transient regression seen last 2 days b/w residual paranoid acuity/ no change in meds or CP d.w Nursing in Rounds; C/B from pt's Public Defended Tiffany Grullon pending. Objective: Vital Signs Temp Pulse Resp BP Pulse Ox 36.4 C 95 14 129/79 H 96 02/01/17 06:00 02/01/17 06:00 02/01/17 06:00 02/01/17 06:00 02/01/17 06:00 ICD10 Worksheet Patient Problems: Problems Problem Status Onset Schizoaffective disorder Acute
[2017-02-01] MEDS ORDERED: BENZTROPINE MESYLATE 1 MG TAB PO ONE (17:45)
[2017-02-02] MEDS: ACETAMINOPHEN 325 MG TAB PO PRN ×4 (02:41→19:31)
--- NOTE | 2017-02-02 06:50 | SOAPPROG ---
SOAP Progress Note Assessment/Plan: Assessment: Plan: 01/20/17 11:30 DAY UPDATE/EXAM: Nursing report pt is less isolative - eating in DR and attending selective groups, c/w cares and meds/ on exam presents as flat and constricted, residual PI with persecutory delusions but is more verbal and with better eye contact; acknowledges obliquely that she has guardian who is her MOC; responsive to reintegrative support; accepting increase in Risperdal dosing ASSESSMENT/PLAN: residual psychotic acuity but evidencing initial improvement/ will increase Risperdal to 2 mg bid; CP d/w Nursing in Rounds 01/23/17 08:00 DAY UPDATE/EXAM: Nursing reports that pt more visible in the milieu and attending selective groups; remains with regressed ADL's but is improving hygiene; c/w cares and meds/ on direct exam does engage and make good eye contact, spontaneously verbal, less guarded; states she won't brush hair because "I don' t want to look good and attract attention"; is responsive to reintegrative support and + reinforcement for meds compliance and socialization efforts ASSESSMENT/PLAN: early phase improvement; residual psychotic acuity/ intake call to MOC pending; anticipate titrating Risperdal dosing up, still considering request for COM; CP reviewed with Nursing in Rounds 01/24/17 11:00 DAY UPDATE/EXAM: Nursing reports pt's paced improvement continues in paced manner - continues with observable guardedness, PI, degree of isolation/ on direct exam continues to evidence circumscribed PI but is conversant with me with good eye contact; understands my positive reinforcing comments on her c ompliance with her treatment plan including compliance with med; understands her Risperdal dosing will be increased to 3 mg bid. INTAKE/MOC - pending as MOC and temporary guardian on C/B ASSESSMENT/PLAN: continues early phase improvement b/w residual psychotic acuity / increase Risperdal to 3mg bid; reintegrative CP d/w Nursing in rounds; c/b expected from [facility] for collateral expansion of data 01/25/17 14:20 DAY UPDATE/EXAM: Nursing reports pt sustaining paced progress in clearing psychotic acuity - still in early phase as pt's PI observable/ on direct exam pt appears more relaxed and with better spontaneous eye contact b/w residual PI and obliquely makes delusional references to MOC with an angry tone; affect with broadening range and lessening flatness; agrees to work with [facility] after dC and knows her housing is being addressed; reinforced in her compliance with cares and meds and encouraged to eat in dining room ASSESSMENT/PLAN: diminished psychotic acuity/ no change in meds; CP to encourage all meals in DR - d/w Nursing in Rounds 01/26/17 14:42 DAY UPDATE/EXAM: Nursing reports paced gains over last 24 hrs evidenced by more organization of thought process, more visibility in milieu, improving ADL'S/ on direct exam pt makes consistent eye contact, appearance-hygiene improving; coherent conversant verbal mode and able to discuss alliance with accepting MHP referral and, if need be, working with the [facility]; positive reponse to reintegrative input during session. ASSESSMENT/PLAN: mid-phase in progress recompensating/ no change in meds; management plan d/w Nursing in Rounds with continued emphasis of increasing autonomy with ADL'S and reinforcing social ego functions. 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 ASSESSMENT/PLAN: improving course sustained with pt sharing more lifeline disclosure/ no change in meds, CP d/w Nursing in rounds; will reality test history with MOC whom pt now accepts as her guardian and acknowledges her helpful support. 01/28/17 12:02 DAY UPDATE/EXAM: Nursing reports pt sustaining engagement witn CP focus on socialization ADL's, sleep, and group attendance with progress on all fronts/ on direct exam pt discloses first psychiatric intervention was a one week hospitalization age 15 for depressive crisis with SI; she states no rx after that until emerging psychosis age 27; reminded pt of the information about lifeline history shared yesterday which she again reaffirmed; positive response to my pointing out again the capacity for life functioning she carries as indicated by this history ASSESSMENT/PLAN: improving course sustained with less psychotic residual observed qd and + gain a referenced above/ no change in meds or management plan ; reviewed case in Rounds with Nursing. 01/29/17 08;30 UPDATE/EXAM: Nursing reports continued descriptive and functional improvement noted as pt engages the Care Plan/ on direct exam pt evidences broadening range of affect, much less guarded, less flattening in affective expression; continues with + alliance about engaging post DC treatment plan with P. ASSESSMENT/PLAN: improving trend continues with continues progress in resolving residual psychotic acuity and moving toward stable baseline allowing move into DC planning phase/ no change in meds or management plan; initiate discussion of which community services indicated under the [facility] umbrella and options for housing at time of DC 01/30/17 09:00 DAY UPDATE/EXAM: Nursing reports paced improvement continues - is using more prns in last 1-2 days for reasons that are unclear/ on direct exam is engagable, conversant, able to comment on her subjective improvement and wants to know more about [facility] services; responsive to reintegrative support; unable to explain her demands for more prn meds recently ASSESSMENT/PLAN: recompensation progress continues - residual guardedness and social inhibitions; likely residual IOR/ will clarify further issue of increased prn meds use; also will explore probating pt's compliance with psychiatric treatment by contacting pt's safety patrol officer per assist from CC; also expedite obtaining P records and contacting [facility] for DC planning 01/31/17 09:00 DAY UPDATE/EXAM: Nusing reports pt slept, relates in more guarded manner but remains present in the milieu and dining room, not as present in groups/ on direct exam pt expresses more overt PI and IOR, doesn't disagree that anxiety about beginning DC planning may be triggering more distrust about "what's true" . She states she's never lived in a senior living and would prefer living in own apartment at DC; reiterates willingness to work with [facility] again and comply with meds which we discuss in concrete detail as essential to continue on stabilization track; understands I will be increasing Risperdal to 8 mg qd. ASSESSMENT/PLAN: regression on exam with increase IOR/PI - likely a/w DC planning phase/ will increase Risperdal to 8 mg qd; L/M with publications distribution clerk for C/B to discuss possibility to move to probated DC plan to assure compliance w ith treatment post DC, 02/01/17 DAY UPDATE/EXAM: Nursing reports pt slept well, sustaining paced gains in resolving residual paranoid acuity and is spending more time in milieu and improving group attendance, reversing regression seen 2 days ago; on direct exam responds well to reintegrative inputs as we discuss current progress inpt goals of improving comfort being with and around others, attending to ADL's and the value of using these gains on DC in the community; residual PI and IOR are present but less visible. ASSESSMENT/PLAN: reversing transient regression seen last 2 days b/w residual paranoid acuity/ no change in meds or CP d.w Nursing in Rounds; C/B from pt's Public [employer] T[facility] Grullon pending. 02/02/17 DAY UPDATE/EXAM: Objective: Vital Signs Temp Pulse Resp BP Pulse Ox 36.7 C 92 15 109/73 93 02/02/17 06:00 02/02/17 06:00 02/02/17 06:00 02/02/17 06:00 02/02/17 06:00 ICD10 Worksheet Patient Problems: Problems Problem Status Onset Schizoaffective disorder Acute
[2017-02-02] MEDS: risperiDONE 2 MG TAB PO SCH ×2 (08:04→21:01)
[2017-02-02] MEDS: OLANZapine DISINTEGR 10 MG TAB PO PRN ×3 (08:04→21:01)
[2017-02-02] MEDS: BENZTROPINE MESYLATE 1 MG TAB PO SCH (08:04)
[2017-02-02] MEDS: NICOTINE 21 MG/24 HR PATCH TD SCH (08:05)
[2017-02-02] MEDS: hydrOXYzine HCL 25 MG TAB PO PRN ×3 (11:10→21:01)
[2017-02-02] MEDS: NICOTINE POLACRILEX 2 MG GUM B PRN ×3 (11:25→18:30)
--- NOTE | 2017-02-02 12:09 | SOAPPROG ---
SOAP Progress Note Assessment/Plan: Assessment: Plan: 01/20/17 11:30 DAY UPDATE/EXAM: Nursing report pt is less isolative - eating in DR and attending selective groups, c/w cares and meds/ on exam presents as flat and constricted, residual PI with persecutory delusions but is more verbal and with better eye contact; acknowledges obliquely that she has guardian who is her MOC; responsive to reintegrative support; accepting increase in Risperdal dosing ASSESSMENT/PLAN: residual psychotic acuity but evidencing initial improvement/ will increase Risperdal to 2 mg bid; CP d/w Nursing in Rounds 01/23/17 08:00 DAY UPDATE/EXAM: Nursing reports that pt more visible in the milieu and attending selective groups; remains with regressed ADL's but is improving hygiene; c/w cares and meds/ on direct exam does engage and make good eye contact, spontaneously verbal, less guarded; states she won't brush hair because "I don' t want to look good and attract attention"; is responsive to reintegrative support and + reinforcement for meds compliance and socialization efforts ASSESSMENT/PLAN: early phase improvement; residual psychotic acuity/ intake call to MOC pending; anticipate titrating Risperdal dosing up, still considering request for COM; CP reviewed with Nursing in Rounds 01/24/17 11:00 DAY UPDATE/EXAM: Nursing reports pt's paced improvement continues in paced manner - continues with observable guardedness, PI, degree of isolation/ on direct exam continues to evidence circumscribed PI but is conversant with me with good eye contact; understands my positive reinforcing comments on her c ompliance with her treatment plan including compliance with med; understands her Risperdal dosing will be increased to 3 mg bid. INTAKE/MOC - pending as MOC and temporary guardian on C/B ASSESSMENT/PLAN: continues early phase improvement b/w residual psychotic acuity / increase Risperdal to 3mg bid; reintegrative CP d/w Nursing in rounds; c/b expected from [facility] for collateral expansion of data 01/25/17 14:20 DAY UPDATE/EXAM: Nursing reports pt sustaining paced progress in clearing psychotic acuity - still in early phase as pt's PI observable/ on direct exam pt appears more relaxed and with better spontaneous eye contact b/w residual PI and obliquely makes delusional references to MOC with an angry tone; affect with broadening range and lessening flatness; agrees to work with MHP after dC and knows her housing is being addressed; reinforced in her compliance with cares and meds and encouraged to eat in dining room ASSESSMENT/PLAN: diminished psychotic acuity/ no change in meds; CP to encourage all meals in DR - d/w Nursing in Rounds 01/26/17 14:42 DAY UPDATE/EXAM: Nursing reports paced gains over last 24 hrs evidenced by more organization of thought process, more visibility in milieu, improving ADL'S/ on direct exam pt makes consistent eye contact, appearance-hygiene improving; coherent conversant verbal mode and able to discuss alliance with accepting MHP referral and, if need be, working with the [facility]; positive reponse to reintegrative input during session. ASSESSMENT/PLAN: mid-phase in progress recompensating/ no change in meds; management plan d/w Nursing in Rounds with continued emphasis of increasing autonomy with ADL'S and reinforcing social ego functions. 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 ASSESSMENT/PLAN: improving course sustained with pt sharing more lifeline disclosure/ no change in meds, CP d/w Nursing in rounds; will reality test history with MOC whom pt now accepts as her guardian and acknowledges her helpful support. 01/28/17 12:02 DAY UPDATE/EXAM: Nursing reports pt sustaining engagement witn CP focus on socialization ADL's, sleep, and group attendance with progress on all fronts/ on direct exam pt discloses first psychiatric intervention was a one week hospitalization age 15 for depressive crisis with SI; she states no rx after that until emerging psychosis age 27; reminded pt of the information about lifeline history shared yesterday which she again reaffirmed; positive response to my pointing out again the capacity for life functioning she carries as indicated by this history ASSESSMENT/PLAN: improving course sustained with less psychotic residual observed qd and + gain a referenced above/ no change in meds or management plan ; reviewed case in Rounds with Nursing. 01/29/17 08;30 UPDATE/EXAM: Nursing reports continued descriptive and functional improvement noted as pt engages the Care Plan/ on direct exam pt evidences broadening range of affect, much less guarded, less flattening in affective expression; continues with + alliance about engaging post DC treatment plan with P. ASSESSMENT/PLAN: improving trend continues with continues progress in resolving residual psychotic acuity and moving toward stable baseline allowing move into DC planning phase/ no change in meds or management plan; initiate discussion of which community services indicated under the [facility] umbrella and options for housing at time of DC 01/30/17 09:00 DAY UPDATE/EXAM: Nursing reports paced improvement continues - is using more prns in last 1-2 days for reasons that are unclear/ on direct exam is engagable, conversant, able to comment on her subjective improvement and wants to know more about [facility] services; responsive to reintegrative support; unable to explain her demands for more prn meds recently ASSESSMENT/PLAN: recompensation progress continues - residual guardedness and social inhibitions; likely residual IOR/ will clarify further issue of increased prn meds use; also will explore probating pt's compliance with psychiatric treatment by contacting pt's motorcycle police officer per assist from CC; also expedite obtaining P records and contacting [facility] for DC planning 01/31/17 09:00 DAY UPDATE/EXAM: Nusing reports pt slept, relates in more guarded manner but remains present in the milieu and dining room, not as present in groups/ on direct exam pt expresses more overt PI and IOR, doesn't disagree that anxiety about beginning DC planning may be triggering more distrust about "what's true" . She states she's never lived in a correction and would prefer living in own apartment at DC; reiterates willingness to work with MHP again and comply with meds which we discuss in concrete detail as essential to continue on stabilization track; understands I will be increasing Risperdal to 8 mg qd. ASSESSMENT/PLAN: regression on exam with increase IOR/PI - likely a/w DC planning phase/ will increase Risperdal to 8 mg qd; L/M with publications designer for C/B to discuss possibility to move to probated DC plan to assure compliance w ith treatment post DC, 02/01/17 DAY UPDATE/EXAM: Nursing reports pt slept well, sustaining paced gains in resolving residual paranoid acuity and is spending more time in milieu and improving group attendance, reversing regression seen 2 days ago; on direct exam responds well to reintegrative inputs as we discuss current progress inpt goals of improving comfort being with and around others, attending to ADL's and the value of using these gains on DC in the community; residual PI and IOR are present but less visible. ASSESSMENT/PLAN: reversing transient regression seen last 2 days b/w residual paranoid acuity/ no change in meds or CP d.w Nursing in Rounds; C/B from pt's [employer] Grullon pending. 02/02/17 09:00 DAY UPDATE/EXAM: Nursing reports pt slept well, c/w cares and meds, attending better to ADL's, participating better in groups/ on direct exam is engaged effectively, states she accepts biologic mother is her guardian but reaffirms she wants no contact but does want mother to continue to help in the concrete fashion I describe to her has been ongoing; also states she with work with Nursing to disentangle her hair in the interest of improving hygiene, finally agrees to accept depot Risperdal injections starting after coming weekend; DC planning also discussed; pt did well with reintegrative and clarifying in;puts during the session; did affirm the value of Cogentin second shift for akisthisia ASSESSMENT/PLAN: paced recompensation progress continues/ no change in made or management plan as d/w Nursing in Rounds; anticipate moving pt to DC end of next week Objective: Vital Signs Temp Pulse Resp BP Pulse Ox 36.7 C 92 15 109/73 93 02/02/17 06:00 02/02/17 06:00 02/02/17 06:00 02/02/17 06:00 02/02/17 06:00 ICD10 Worksheet Patient Problems: Problems Problem Status Onset Schizoaffective disorder Acute
[2017-02-02] MEDS ORDERED: AMOXICILLIN/CLAVULANATE POT 875/125 MG TAB PO ONE (13:54)
[2017-02-03] MEDS: hydrOXYzine HCL 25 MG TAB PO PRN ×3 (02:15→20:54)
[2017-02-03] MEDS: ACETAMINOPHEN 325 MG TAB PO PRN ×3 (02:15→20:54)
--- NOTE | 2017-02-03 08:11 | HOSPPROG ---
Hospitalist Progress Note Assessment/Plan: I have been asked to see the patient for painful swollen cheek. No fevers, some intermittent fast HR though she has had this on and off for past couple weeks vitals otherwise nl Exam: 2 lower Right molars are carious with severe gingivitis and evidence of abscess , obvious adjacent soft tissue edema and tenderness of buccal tissues Impression: Dental abscess Plan: augmentin 875 bid 10 days tylenol and advil prn warm compress will need referral to a dentist as well; I discussed this w staff Objective: Vital Signs Temp Pulse Resp BP Pulse Ox 36.6 C 106 H 16 121/79 H 93 02/03/17 02:10 02/03/17 02:30 02/03/17 02:10 02/03/17 02:10 02/03/17 02:10 ICD10 Worksheet Patient Problems: Problems Problem Status Onset Schizoaffective disorder Acute
[2017-02-03] MEDS: BENZTROPINE MESYLATE 1 MG TAB PO SCH (08:26)
[2017-02-03] MEDS: OLANZapine DISINTEGR 10 MG TAB PO PRN ×3 (08:26→20:57)
[2017-02-03] MEDS: risperiDONE 2 MG TAB PO SCH ×3 (08:26→20:54)
[2017-02-03] MEDS: IBUPROFEN 200 MG TAB PO PRN ×2 (09:01→16:07)
[2017-02-03] MEDS: AMOXICILLIN/CLAVULANATE POT 875/125 MG TAB PO SCH ×2 (09:01→20:54)
[2017-02-03] MEDS: NICOTINE 21 MG/24 HR PATCH TD SCH (09:12)
[2017-02-03] MEDS: ACETAMINOPHEN 500 MG TAB PO PRN (12:04)
[2017-02-03] MEDS: NICOTINE POLACRILEX 2 MG GUM B PRN ×3 (13:09→18:07)
--- NOTE | 2017-02-03 14:29 | SOAPPROG ---
KARIME Progress Note Assessment/Plan: Assessment: 36yo with hx of Schizoaffective d/o, admitted from snf where she was found to be gravely disabled and paranoid Dx: Schizoaffective d/o, acute exac 02/03/17 14:25 per staff, slept 8.5 hrs. started on Augmentin and Ibuprofen for R lower tooth abscess. states meds have been helpful. less pain. states groups are "good" and helpful. still with some restlessness feelings but improved on Cogentin. feels medication "helps me focus on what I need to do to get out of here, and help me have more positive mood". MSE: calm, cooperative, disheveled hair, casually dressed, nml eye contact, articulate with nml speech rate/vol, mood "okay", affect somewhat restricted, denied ah/vh, denied si/hi PLAN: -cont encourage group attendance, and attending to ADLs -cont meds as Rxd. states she is willing to consider long-acting injectable form of Risperdal and will d/w Dr. Rodriges Objective: Vital Signs Temp Pulse Resp BP Pulse Ox 36.6 C 106 H 16 121/79 H 93 02/03/17 02:10 02/03/17 02:30 02/03/17 02:10 02/03/17 02:10 02/03/17 02:10 - Time Spent With Patient Time Spent With Patient: 25min - Pending Discharge Pending Discharge Within 24 Hours: No Pending Discharge Within 48 Hours: No ICD10 Worksheet Patient Problems: Problems Problem Status Onset Schizoaffective disorder Acute
[2017-02-04] MEDS: ACETAMINOPHEN 325 MG TAB PO PRN (06:07)
[2017-02-04] MEDS: BENZTROPINE MESYLATE 1 MG TAB PO SCH (09:24)
[2017-02-04] MEDS: NICOTINE 21 MG/24 HR PATCH TD SCH (09:24)
[2017-02-04] MEDS: risperiDONE 2 MG TAB PO SCH ×2 (09:25→20:45)
[2017-02-04] MEDS: NICOTINE POLACRILEX 2 MG GUM B PRN ×2 (09:26→15:27)
[2017-02-04] MEDS: AMOXICILLIN/CLAVULANATE POT 875/125 MG TAB PO SCH ×2 (09:27→20:45)
[2017-02-04] MEDS: IBUPROFEN 200 MG TAB PO PRN ×2 (09:38→20:49)
[2017-02-04] MEDS: OLANZapine DISINTEGR 10 MG TAB PO PRN (09:42)
--- NOTE | 2017-02-04 12:07 | HOSPPROG ---
Hospitalist Progress Note Assessment/Plan: DIAGNOSES: Dental abscess after 1 day of antibiotics there is some improvement but she is still quite swollen and painful. Will need to complete 10 day course of antibiotics PLANS: Continue augmentin 875 bid for total 10 days tylenol and advil prn warm compress will need referral to a dentist as well SUBJECTIVE: still with quite a bit of pain and swelling but slightly improved from yesterday OBJECTIVE Vitals reviewed: still with mild intermittent tachycardia, no fever Exam: alert oriented HEENT: Still with quite a bit of bagel swelling and tenderness but slightly less swollen than yesterday ; teeth and gums look the same skin warm dry color ok resps not labored lungs clear BSs heart regular abd soft nondistended nontender, bowel sounds present limbs warm, no edema iv site ok Objective: Vital Signs Temp Pulse Resp BP Pulse Ox 36.6 C 110 H 12 127/76 H 95 02/04/17 06:00 02/04/17 06:00 02/04/17 06:00 02/04/17 06:00 02/04/17 06:00 ICD10 Worksheet Patient Problems: Problems Problem Status Onset Schizoaffective disorder Acute
--- NOTE | 2017-02-04 14:28 | SOAPPROG ---
SOAP Progress Note Assessment/Plan: Assessment: 36yo with hx of Schizoaffective d/o, admitted from skilled nursing where she was found to be gravely disabled and paranoid Dx: Schizoaffective d/o, acute exac 02/03/17 14:25 per staff, slept 8.5 hrs. started on Augmentin and Ibuprofen for R lower tooth abscess. states meds have been helpful. less pain. states groups are "good" and helpful. still with some restlessness feelings but improved on Cogentin. feels medication "helps me focus on what I need to do to get out of here, and help me have more positive mood". 02/04/17 14:23 per staff, slept 9hr. continues on beh plan but needs prompts o follow. pt reports jaw pain less but still present. attending groups and to hygiene taking meds, denies med s/e presently since on cogentin. MSE: calm, cooperative, disheveled hair, casually dressed, nml eye contact, speech slightly dysarticulate this AM pt attributes to jaw swelling/pain instead of EPS effect, nml speech rate/vol, mood "fine", affect somewhat restricted, denied ah/vh, denied si/hi. PLAN: -cont encourage group attendance, and attending to ADLs. cont on Behav plan. -cont meds as Rxd. monitor for EPS. took prn zyprexa 10mg this am, unclear reason, will d/c zyprexa -willing to consider long-acting injectable form of Risperdal and will d/w Dr. Rodriges Objective: Vital Signs Temp Pulse Resp BP Pulse Ox 36.6 C 110 H 12 127/76 H 95 02/04/17 06:00 02/04/17 06:00 02/04/17 06:00 02/04/17 06:00 02/04/17 06:00 Medications Generic Name Dose Route Start Last Admin Trade Name Freq PRN Reason Stop Dose Admin Benztropine Mesylate 0.5 mg 02/02/17 09:00 02/04/17 09:24 Cogentin PO 08/01/17 08:59 0.5 mg DAILY [facility] Amoxicillin/Clavulanate Potassium 875 mg 02/03/17 09:00 02/04/17 09:27 Augmentin 875mg PO 02/12/17 21:01 875 mg BID NANY Protocol Hydroxyzine HCl 25 - 50 mg 01/22/17 20:32 02/03/17 20:54 Hydroxyzine Hcl PO 07/21/17 20:31 50 mg TID PRN ANXIETY Olanzapine 10 mg 01/19/17 00:07 02/04/17 09:42 Zyprexa Zydis PO 07/18/17 00:06 10 mg Q4 PRN PSYCHOSIS/AGITATION Risperidone 2 mg 02/01/17 09:00 02/04/17 09:25 Risperdal PO 07/31/17 08:59 2 mg DAILY NANY Risperidone 6 mg 02/01/17 21:00 02/03/17 20:54 Risperdal PO 07/30/17 20:59 6 mg HS NANY - Time Spent With Patient Time Spent With Patient: 15min - Pending Discharge Pending Discharge Within 24 Hours: No Pending Discharge Within 48 Hours: No ICD10 Worksheet Patient Problems: Problems Problem Status Onset Schizoaffective disorder Acute
[2017-02-04] MEDS: hydrOXYzine HCL 25 MG TAB PO PRN ×2 (15:27→20:50)
[2017-02-05] MEDS: BENZTROPINE MESYLATE 1 MG TAB PO PRN (08:53)
[2017-02-05] MEDS: risperiDONE 2 MG TAB PO SCH ×2 (08:54→19:06)
[2017-02-05] MEDS: IBUPROFEN 200 MG TAB PO PRN ×3 (08:54→22:48)
[2017-02-05] MEDS: NICOTINE POLACRILEX 2 MG GUM B PRN (08:55)
[2017-02-05] MEDS: hydrOXYzine HCL 25 MG TAB PO PRN (08:55)
[2017-02-05] MEDS: AMOXICILLIN/CLAVULANATE POT 875/125 MG TAB PO SCH ×2 (08:56→19:06)
[2017-02-05] MEDS: NICOTINE 21 MG/24 HR PATCH TD SCH (08:57)
[2017-02-05] MEDS: BENZTROPINE MESYLATE 1 MG TAB PO SCH (09:01)
[2017-02-05] MEDS ORDERED: PROPRANOLOL HCL 10 MG TAB PO PRN (14:21)
--- NOTE | 2017-02-05 14:21 | SOAPPROG ---
SOAP Progress Note Assessment/Plan: Assessment: 36yo with hx of Schizoaffective d/o, admitted from group home where she was found to be gravely disabled and paranoid Dx: Schizoaffective d/o, acute exac 02/03/17 14:25 per staff, slept 8.5 hrs. started on Augmentin and Ibuprofen for R lower tooth abscess. states meds have been helpful. less pain. states groups are "good" and helpful. still with some restlessness feelings but improved on Cogentin. feels medication "helps me focus on what I need to do to get out of here, and help me have more positive mood". 02/04/17 14:23 per staff, slept 9hr. continues on beh plan but needs prompts o follow. pt reports jaw pain less but still present. attending groups and to hygiene taking meds, denies med s/e presently since on cogentin. MSE: calm, cooperative, disheveled hair, casually dressed, nml eye contact, speech slightly dysarticulate this AM pt attributes to jaw swelling/pain instead of EPS effect, nml speech rate/vol, mood "fine", affect somewhat restricted, denied ah/vh, denied si/hi. PLAN: -cont encourage group attendance, and attending to ADLs. cont on Behav plan. -cont meds as Rxd. monitor for EPS. took prn zyprexa 10mg this am, unclear reason, will d/c zyprexa -willing to consider long-acting injectable form of Risperdal and will d/w Dr. Rodriges 02/05/17 14:19 per staff, slept 8.5hr. frequent requests for prn meds for anxiety asked why prn zyprexa d/c'd. states she was using it for "anxiety". describes "anxiety" as "need to get up and move, it's affecting me being in groups". discussed likely experiencing akathisia. will offer prn Propranolol. MSE: calm, cooperative, nml speech, jaw swelling appears less, eye contact good , disheveled hair in hosp gowns, denied si/hi or ah/vh, no delusional statements , mood "anxious", affect restricted. PLAN: as above. will add Propranolol 10mg q4h prn akathisia follow up at 17:30 pt reports Propranolol helpful, interested in trying 20mg. will increase to 10-20mg q4h prn, hold for P<60 Objective: Vital Signs Temp Pulse Resp BP Pulse Ox 36.8 C 100 18 123/76 H 91 L 02/05/17 06:00 02/05/17 06:00 02/05/17 06:00 02/05/17 06:00 02/05/17 06:00 - Time Spent With Patient Time Spent With Patient: 25min - Pending Discharge Pending Discharge Within 24 Hours: No Pending Discharge Within 48 Hours: No ICD10 Worksheet Patient Problems: Problems Problem Status Onset Schizoaffective disorder Acute
[2017-02-05] MEDS ORDERED: PROPRANOLOL HCL 10 MG TAB ONE (14:29)
[2017-02-05] MEDS: ACETAMINOPHEN 325 MG TAB PO PRN (17:53)
[2017-02-05] MEDS: PROPRANOLOL HCL 10 MG TAB PO PRN (19:07)
[2017-02-06] MEDS: PROPRANOLOL HCL 10 MG TAB PO PRN ×2 (03:27→07:37)
[2017-02-06] MEDS: ACETAMINOPHEN 500 MG TAB PO PRN (08:21)
[2017-02-06] MEDS: AMOXICILLIN/CLAVULANATE POT 875/125 MG TAB PO SCH ×2 (08:22→21:24)
[2017-02-06] MEDS: BENZTROPINE MESYLATE 1 MG TAB PO SCH (08:22)
[2017-02-06] MEDS: risperiDONE 2 MG TAB PO SCH ×2 (08:23→21:25)
--- NOTE | 2017-02-06 11:57 | SOAPPROG ---
SOAP Progress Note Assessment/Plan: Assessment: Plan: 01/20/17 11:30 DAY UPDATE/EXAM: Nursing report pt is less isolative - eating in DR and attending selective groups, c/w cares and meds/ on exam presents as flat and constricted, residual PI with persecutory delusions but is more verbal and with better eye contact; acknowledges obliquely that she has guardian who is her MOC; responsive to reintegrative support; accepting increase in Risperdal dosing ASSESSMENT/PLAN: residual psychotic acuity but evidencing initial improvement/ will increase Risperdal to 2 mg bid; CP d/w Nursing in Rounds 01/23/17 08:00 DAY UPDATE/EXAM: Nursing reports that pt more visible in the milieu and attending selective groups; remains with regressed ADL's but is improving hygiene; c/w cares and meds/ on direct exam does engage and make good eye contact, spontaneously verbal, less guarded; states she won't brush hair because "I don' t want to look good and attract attention"; is responsive to reintegrative support and + reinforcement for meds compliance and socialization efforts ASSESSMENT/PLAN: early phase improvement; residual psychotic acuity/ intake call to MOC pending; anticipate titrating Risperdal dosing up, still considering request for COM; CP reviewed with Nursing in Rounds 01/24/17 11:00 DAY UPDATE/EXAM: Nursing reports pt's paced improvement continues in paced manner - continues with observable guardedness, PI, degree of isolation/ on direct exam continues to evidence circumscribed PI but is conversant with me with good eye contact; understands my positive reinforcing comments on her c ompliance with her treatment plan including compliance with med; understands her Risperdal dosing will be increased to 3 mg bid. INTAKE/MOC - pending as MOC and temporary guardian on C/B ASSESSMENT/PLAN: continues early phase improvement b/w residual psychotic acuity / increase Risperdal to 3mg bid; reintegrative CP d/w Nursing in rounds; c/b expected from [facility] for collateral expansion of data 01/25/17 14:20 DAY UPDATE/EXAM: Nursing reports pt sustaining paced progress in clearing psychotic acuity - still in early phase as pt's PI observable/ on direct exam pt appears more relaxed and with better spontaneous eye contact b/w residual PI and obliquely makes delusional references to MOC with an angry tone; affect with broadening range and lessening flatness; agrees to work with MHP after dC and knows her housing is being addressed; reinforced in her compliance with cares and meds and encouraged to eat in dining room ASSESSMENT/PLAN: diminished psychotic acuity/ no change in meds; CP to encourage all meals in DR - d/w Nursing in Rounds 01/26/17 14:42 DAY UPDATE/EXAM: Nursing reports paced gains over last 24 hrs evidenced by more organization of thought process, more visibility in milieu, improving ADL'S/ on direct exam pt makes consistent eye contact, appearance-hygiene improving; coherent conversant verbal mode and able to discuss alliance with accepting MHP referral and, if need be, working with the [facility]; positive reponse to reintegrative input during session. ASSESSMENT/PLAN: mid-phase in progress recompensating/ no change in meds; management plan d/w Nursing in Rounds with continued emphasis of increasing autonomy with ADL'S and reinforcing social ego functions. 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 ASSESSMENT/PLAN: improving course sustained with pt sharing more lifeline disclosure/ no change in meds, CP d/w Nursing in rounds; will reality test history with MOC whom pt now accepts as her guardian and acknowledges her helpful support. 01/28/17 12:02 DAY UPDATE/EXAM: Nursing reports pt sustaining engagement witn CP focus on socialization ADL's, sleep, and group attendance with progress on all fronts/ on direct exam pt discloses first psychiatric intervention was a one week hospitalization age 15 for depressive crisis with SI; she states no rx after that until emerging psychosis age 27; reminded pt of the information about lifeline history shared yesterday which she again reaffirmed; positive response to my pointing out again the capacity for life functioning she carries as indicated by this history ASSESSMENT/PLAN: improving course sustained with less psychotic residual observed qd and + gain a referenced above/ no change in meds or management plan ; reviewed case in Rounds with Nursing. 01/29/17 08;30 UPDATE/EXAM: Nursing reports continued descriptive and functional improvement noted as pt engages the Care Plan/ on direct exam pt evidences broadening range of affect, much less guarded, less flattening in affective expression; continues with + alliance about engaging post DC treatment plan with P. ASSESSMENT/PLAN: improving trend continues with continues progress in resolving residual psychotic acuity and moving toward stable baseline allowing move into DC planning phase/ no change in meds or management plan; initiate discussion of which community services indicated under the [facility] umbrella and options for housing at time of DC 01/30/17 09:00 DAY UPDATE/EXAM: Nursing reports paced improvement continues - is using more prns in last 1-2 days for reasons that are unclear/ on direct exam is engagable, conversant, able to comment on her subjective improvement and wants to know more about [facility] services; responsive to reintegrative support; unable to explain her demands for more prn meds recently ASSESSMENT/PLAN: recompensation progress continues - residual guardedness and social inhibitions; likely residual IOR/ will clarify further issue of increased prn meds use; also will explore probating pt's compliance with psychiatric treatment by contacting pt's special weapons unit officer per assist from CC; also expedite obtaining P records and contacting [facility] for DC planning 01/31/17 09:00 DAY UPDATE/EXAM: Nusing reports pt slept, relates in more guarded manner but remains present in the milieu and dining room, not as present in groups/ on direct exam pt expresses more overt PI and IOR, doesn't disagree that anxiety about beginning DC planning may be triggering more distrust about "what's true" . She states she's never lived in a senior living and would prefer living in own apartment at DC; reiterates willingness to work with [facility] again and comply with meds which we discuss in concrete detail as essential to continue on stabilization track; understands I will be increasing Risperdal to 8 mg qd. ASSESSMENT/PLAN: regression on exam with increase IOR/PI - likely a/w DC planning phase/ will increase Risperdal to 8 mg qd; L/M with deputy director of public works for C/B to discuss possibility to move to probated DC plan to assure compliance w ith treatment post DC, 02/01/17 DAY UPDATE/EXAM: Nursing reports pt slept well, sustaining paced gains in resolving residual paranoid acuity and is spending more time in milieu and improving group attendance, reversing regression seen 2 days ago; on direct exam responds well to reintegrative inputs as we discuss current progress inpt goals of improving comfort being with and around others, attending to ADL's and the value of using these gains on DC in the community; residual PI and IOR are present but less visible. ASSESSMENT/PLAN: reversing transient regression seen last 2 days b/w residual paranoid acuity/ no change in meds or CP d.w Nursing in Rounds; C/B from pt's Public [employer] Tiffany Grullon pending. 02/02/17 09:00 DAY UPDATE/EXAM: Nursing reports pt slept well, c/w cares and meds, attending better to ADL's, participating better in groups/ on direct exam is engaged effectively, states she accepts biologic mother is her guardian but reaffirms she wants no contact but does want mother to continue to help in the concrete fashion I describe to her has been ongoing; also states she with work with Nursing to disentangle her hair in the interest of improving hygiene, finally agrees to accept depot Risperdal injections starting after coming weekend; DC planning also discussed; pt did well with reintegrative and clarifying in;puts during the session; did affirm the value of Cogentin second shift for akisthisia ASSESSMENT/PLAN: paced recompensation progress continues/ no change in made or management plan as d/w Nursing in Rounds; anticipate moving pt to DC end of next week 02/06/17 11:51 DAY UPDATE/EXAM: Nursing reports pt has continued paced improvement over last 3 days ; continues ot display observable psychotic elements albeit with less intensity and frequency as she moves close to level of stability allowing DC/ on direct exam evidences more range and booth affective expression, diminished IOR and PI ASSESSMENT/PLAN: improving course sustained/will administer Risperdal Consta 50 mg IM, continue po Risperdal 8 mg qd; will also continue Inderal added over weekend and standing Cogentin as previously ordered; CP reviewed with Nursing in Rounds; Inderal changed from prn to 20 mg tid Objective: Vital Signs Temp Pulse Resp BP Pulse Ox 36.3 C 92 15 124/86 H 91 L 02/06/17 03:30 02/06/17 03:30 02/06/17 03:30 02/06/17 03:30 02/06/17 03:30 ICD10 Worksheet Patient Problems: Problems Problem Status Onset Schizoaffective disorder Acute
[2017-02-06] MEDS ORDERED: risperiDONE MICROSPHERES 50 MG/2 ML SYR IM ONE (11:58)
[2017-02-06] MEDS: IBUPROFEN 200 MG TAB PO PRN (14:02)
[2017-02-06] MEDS: BENZTROPINE MESYLATE 1 MG TAB PO PRN (14:03)
[2017-02-06] MEDS: NICOTINE POLACRILEX 2 MG GUM B PRN ×2 (14:53→17:47)
[2017-02-06] MEDS: NICOTINE 21 MG/24 HR PATCH TD SCH (15:56)
[2017-02-06] MEDS: PROPRANOLOL HCL 20 MG TAB PO SCH ×2 (16:23→21:24)
--- NOTE | 2017-02-07 07:08 | SOAPPROG ---
SOAP Progress Note Assessment/Plan: Assessment: Plan: 01/20/17 11:30 DAY UPDATE/EXAM: Nursing report pt is less isolative - eating in DR and attending selective groups, c/w cares and meds/ on exam presents as flat and constricted, residual PI with persecutory delusions but is more verbal and with better eye contact; acknowledges obliquely that she has guardian who is her MOC; responsive to reintegrative support; accepting increase in Risperdal dosing ASSESSMENT/PLAN: residual psychotic acuity but evidencing initial improvement/ will increase Risperdal to 2 mg bid; CP d/w Nursing in Rounds 01/23/17 08:00 DAY UPDATE/EXAM: Nursing reports that pt more visible in the milieu and attending selective groups; remains with regressed ADL's but is improving hygiene; c/w cares and meds/ on direct exam does engage and make good eye contact, spontaneously verbal, less guarded; states she won't brush hair because "I don' t want to look good and attract attention"; is responsive to reintegrative support and + reinforcement for meds compliance and socialization efforts ASSESSMENT/PLAN: early phase improvement; residual psychotic acuity/ intake call to MOC pending; anticipate titrating Risperdal dosing up, still considering request for COM; CP reviewed with Nursing in Rounds 01/24/17 11:00 DAY UPDATE/EXAM: Nursing reports pt's paced improvement continues in paced manner - continues with observable guardedness, PI, degree of isolation/ on direct exam continues to evidence circumscribed PI but is conversant with me with good eye contact; understands my positive reinforcing comments on her c ompliance with her treatment plan including compliance with med; understands her Risperdal dosing will be increased to 3 mg bid. INTAKE/MOC - pending as MOC and temporary guardian on C/B ASSESSMENT/PLAN: continues early phase improvement b/w residual psychotic acuity / increase Risperdal to 3mg bid; reintegrative CP d/w Nursing in rounds; c/b expected from [facility] for collateral expansion of data 01/25/17 14:20 DAY UPDATE/EXAM: Nursing reports pt sustaining paced progress in clearing psychotic acuity - still in early phase as pt's PI observable/ on direct exam pt appears more relaxed and with better spontaneous eye contact b/w residual PI and obliquely makes delusional references to MOC with an angry tone; affect with broadening range and lessening flatness; agrees to work with [facility]HP after dC and knows her housing is being addressed; reinforced in her compliance with cares and meds and encouraged to eat in dining room ASSESSMENT/PLAN: diminished psychotic acuity/ no change in meds; CP to encourage all meals in DR - d/w Nursing in Rounds 01/26/17 14:42 DAY UPDATE/EXAM: Nursing reports paced gains over last 24 hrs evidenced by more organization of thought process, more visibility in milieu, improving ADL'S/ on direct exam pt makes consistent eye contact, appearance-hygiene improving; coherent conversant verbal mode and able to discuss alliance with accepting MHP referral and, if need be, working with the [facility]; positive reponse to reintegrative input during session. ASSESSMENT/PLAN: mid-phase in progress recompensating/ no change in meds; management plan d/w Nursing in Rounds with continued emphasis of increasing autonomy with ADL'S and reinforcing social ego functions. 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 ASSESSMENT/PLAN: improving course sustained with pt sharing more lifeline disclosure/ no change in meds, CP d/w Nursing in rounds; will reality test history with MOC whom pt now accepts as her guardian and acknowledges her helpful support. 01/28/17 12:02 DAY UPDATE/EXAM: Nursing reports pt sustaining engagement witn CP focus on socialization ADL's, sleep, and group attendance with progress on all fronts/ on direct exam pt discloses first psychiatric intervention was a one week hospitalization age 15 for depressive crisis with SI; she states no rx after that until emerging psychosis age 27; reminded pt of the information about lifeline history shared yesterday which she again reaffirmed; positive response to my pointing out again the capacity for life functioning she carries as indicated by this history ASSESSMENT/PLAN: improving course sustained with less psychotic residual observed qd and + gain a referenced above/ no change in meds or management plan ; reviewed case in Rounds with Nursing. 01/29/17 08;30 UPDATE/EXAM: Nursing reports continued descriptive and functional improvement noted as pt engages the Care Plan/ on direct exam pt evidences broadening range of affect, much less guarded, less flattening in affective expression; continues with + alliance about engaging post DC treatment plan with P. ASSESSMENT/PLAN: improving trend continues with continues progress in resolving residual psychotic acuity and moving toward stable baseline allowing move into DC planning phase/ no change in meds or management plan; initiate discussion of which community services indicated under the [facility] umbrella and options for housing at time of DC 01/30/17 09:00 DAY UPDATE/EXAM: Nursing reports paced improvement continues - is using more prns in last 1-2 days for reasons that are unclear/ on direct exam is engagable, conversant, able to comment on her subjective improvement and wants to know more about [facility] services; responsive to reintegrative support; unable to explain her demands for more prn meds recently ASSESSMENT/PLAN: recompensation progress continues - residual guardedness and social inhibitions; likely residual IOR/ will clarify further issue of increased prn meds use; also will explore probating pt's compliance with psychiatric treatment by contacting pt's promotions officer per assist from CC; also expedite obtaining P records and contacting [facility] for DC planning 01/31/17 09:00 DAY UPDATE/EXAM: Nusing reports pt slept, relates in more guarded manner but remains present in the milieu and dining room, not as present in groups/ on direct exam pt expresses more overt PI and IOR, doesn't disagree that anxiety about beginning DC planning may be triggering more distrust about "what's true" . She states she's never lived in a [facility] and would prefer living in own apartment at DC; reiterates willingness to work with [facility] again and comply with meds which we discuss in concrete detail as essential to continue on stabilization track; understands I will be increasing Risperdal to 8 mg qd. ASSESSMENT/PLAN: regression on exam with increase IOR/PI - likely a/w DC planning phase/ will increase Risperdal to 8 mg qd; L/M with publications sales representative for C/B to discuss possibility to move to probated DC plan to assure compliance w ith treatment post DC, 02/01/17 DAY UPDATE/EXAM: Nursing reports pt slept well, sustaining paced gains in resolving residual paranoid acuity and is spending more time in milieu and improving group attendance, reversing regression seen 2 days ago; on direct exam responds well to reintegrative inputs as we discuss current progress inpt goals of improving comfort being with and around others, attending to ADL's and the value of using these gains on DC in the community; residual PI and IOR are present but less visible. ASSESSMENT/PLAN: reversing transient regression seen last 2 days b/w residual paranoid acuity/ no change in meds or CP d.w Nursing in Rounds; C/B from pt's [employer] T[employer] Grullon pending. 02/02/17 09:00 DAY UPDATE/EXAM: Nursing reports pt slept well, c/w cares and meds, attending better to ADL's, participating better in groups/ on direct exam is engaged effectively, states she accepts biologic mother is her guardian but reaffirms she wants no contact but does want mother to continue to help in the concrete fashion I describe to her has been ongoing; also states she with work with Nursing to disentangle her hair in the interest of improving hygiene, finally agrees to accept depot Risperdal injections starting after coming weekend; DC planning also discussed; pt did well with reintegrative and clarifying in;puts during the session; did affirm the value of Cogentin second shift for akisthisia ASSESSMENT/PLAN: paced recompensation progress continues/ no change in made or management plan as d/w Nursing in Rounds; anticipate moving pt to DC end of next week 02/06/17 11:51 DAY UPDATE/EXAM: Nursing reports pt has continued paced improvement over last 3 days ; continues to display observable psychotic elements albeit with less intensity and frequency as she moves close to level of stability allowing DC/ on direct exam evidences more range and booth affective expression, diminished IOR and PI. ASSESSMENT/PLAN: improving course sustained/will administer Risperdal Consta 50 mg IM, continue po Risperdal 8 mg qd; will also continue Inderal added over weekend and standing Cogentin as previously ordered; CP reviewed with Nursing in Rounds; Inderal changed from prn to 20 mg tid 02/07/17 DAY ' UPDATE/EXAM: Objective: Vital Signs Temp Pulse Resp BP Pulse Ox 36.6 C 61 18 113/76 93 02/07/17 06:00 02/07/17 06:00 02/07/17 06:00 02/07/17 06:00 02/07/17 06:00 ICD10 Worksheet Patient Problems: Problems Problem Status Onset Schizoaffective disorder Acute
[2017-02-07] MEDS: AMOXICILLIN/CLAVULANATE POT 875/125 MG TAB PO SCH ×2 (09:00→20:26)
[2017-02-07] MEDS: IBUPROFEN 200 MG TAB PO PRN ×2 (09:01→20:29)
[2017-02-07] MEDS: BENZTROPINE MESYLATE 1 MG TAB PO SCH (09:01)
[2017-02-07] MEDS: risperiDONE 2 MG TAB PO SCH ×2 (09:02→20:26)
[2017-02-07] MEDS: PROPRANOLOL HCL 20 MG TAB PO SCH ×3 (09:06→20:26)
[2017-02-07] MEDS: NICOTINE 21 MG/24 HR PATCH TD SCH (09:08)
[2017-02-07] MEDS ORDERED: TUBERCULIN (PPD) 5 TU/0.1 ML SYRINGE ID ONE (10:47)
[2017-02-07] MEDS ORDERED: risperiDONE MICROSPHERES 50 MG/2 ML SYR IM ONE (11:00)
[2017-02-07] MEDS: NICOTINE POLACRILEX 2 MG GUM B PRN ×2 (11:24→16:41)
--- NOTE | 2017-02-07 13:37 | SOAPPROG ---
SOAP Progress Note Assessment/Plan: Assessment: Plan: 01/20/17 11:30 DAY UPDATE/EXAM: Nursing report pt is less isolative - eating in DR and attending selective groups, c/w cares and meds/ on exam presents as flat and constricted, residual PI with persecutory delusions but is more verbal and with better eye contact; acknowledges obliquely that she has guardian who is her MOC; responsive to reintegrative support; accepting increase in Risperdal dosing ASSESSMENT/PLAN: residual psychotic acuity but evidencing initial improvement/ will increase Risperdal to 2 mg bid; CP d/w Nursing in Rounds 01/23/17 08:00 DAY UPDATE/EXAM: Nursing reports that pt more visible in the milieu and attending selective groups; remains with regressed ADL's but is improving hygiene; c/w cares and meds/ on direct exam does engage and make good eye contact, spontaneously verbal, less guarded; states she won't brush hair because "I don' t want to look good and attract attention"; is responsive to reintegrative support and + reinforcement for meds compliance and socialization efforts ASSESSMENT/PLAN: early phase improvement; residual psychotic acuity/ intake call to MOC pending; anticipate titrating Risperdal dosing up, still considering request for COM; CP reviewed with Nursing in Rounds 01/24/17 11:00 DAY UPDATE/EXAM: Nursing reports pt's paced improvement continues in paced manner - continues with observable guardedness, PI, degree of isolation/ on direct exam continues to evidence circumscribed PI but is conversant with me with good eye contact; understands my positive reinforcing comments on her c ompliance with her treatment plan including compliance with med; understands her Risperdal dosing will be increased to 3 mg bid. INTAKE/MOC - pending as MOC and temporary guardian on C/B ASSESSMENT/PLAN: continues early phase improvement b/w residual psychotic acuity / increase Risperdal to 3mg bid; reintegrative CP d/w Nursing in rounds; c/b expected from DEC for collateral expansion of data 01/25/17 14:20 DAY UPDATE/EXAM: Nursing reports pt sustaining paced progress in clearing psychotic acuity - still in early phase as pt's PI observable/ on direct exam pt appears more relaxed and with better spontaneous eye contact b/w residual PI and obliquely makes delusional references to MOC with an angry tone; affect with broadening range and lessening flatness; agrees to work with MHP after dC and knows her housing is being addressed; reinforced in her compliance with cares and meds and encouraged to eat in dining room ASSESSMENT/PLAN: diminished psychotic acuity/ no change in meds; CP to encourage all meals in DR - d/w Nursing in Rounds 01/26/17 14:42 DAY UPDATE/EXAM: Nursing reports paced gains over last 24 hrs evidenced by more organization of thought process, more visibility in milieu, improving ADL'S/ on direct exam pt makes consistent eye contact, appearance-hygiene improving; coherent conversant verbal mode and able to discuss alliance with accepting MHP referral and, if need be, working with the [facility]; positive reponse to reintegrative input during session. ASSESSMENT/PLAN: mid-phase in progress recompensating/ no change in meds; management plan d/w Nursing in Rounds with continued emphasis of increasing autonomy with ADL'S and reinforcing social ego functions. 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 ASSESSMENT/PLAN: improving course sustained with pt sharing more lifeline disclosure/ no change in meds, CP d/w Nursing in rounds; will reality test history with MOC whom pt now accepts as her guardian and acknowledges her helpful support. 01/28/17 12:02 DAY UPDATE/EXAM: Nursing reports pt sustaining engagement witn CP focus on socialization ADL's, sleep, and group attendance with progress on all fronts/ on direct exam pt discloses first psychiatric intervention was a one week hospitalization age 15 for depressive crisis with SI; she states no rx after that until emerging psychosis age 27; reminded pt of the information about lifeline history shared yesterday which she again reaffirmed; positive response to my pointing out again the capacity for life functioning she carries as indicated by this history ASSESSMENT/PLAN: improving course sustained with less psychotic residual observed qd and + gain a referenced above/ no change in meds or management plan ; reviewed case in Rounds with Nursing. 01/29/17 08;30 UPDATE/EXAM: Nursing reports continued descriptive and functional improvement noted as pt engages the Care Plan/ on direct exam pt evidences broadening range of affect, much less guarded, less flattening in affective expression; continues with + alliance about engaging post DC treatment plan with P. ASSESSMENT/PLAN: improving trend continues with continues progress in resolving residual psychotic acuity and moving toward stable baseline allowing move into DC planning phase/ no change in meds or management plan; initiate discussion of which community services indicated under the [facility] umbrella and options for housing at time of DC 01/30/17 09:00 DAY UPDATE/EXAM: Nursing reports paced improvement continues - is using more prns in last 1-2 days for reasons that are unclear/ on direct exam is engagable, conversant, able to comment on her subjective improvement and wants to know more about [facility] services; responsive to reintegrative support; unable to explain her demands for more prn meds recently ASSESSMENT/PLAN: recompensation progress continues - residual guardedness and social inhibitions; likely residual IOR/ will clarify further issue of increased prn meds use; also will explore probating pt's compliance with psychiatric treatment by contacting pt's humane officer per assist from CC; also expedite obtaining P records and contacting [facility] for DC planning 01/31/17 09:00 DAY UPDATE/EXAM: Nusing reports pt slept, relates in more guarded manner but remains present in the milieu and dining room, not as present in groups/ on direct exam pt expresses more overt PI and IOR, doesn't disagree that anxiety about beginning DC planning may be triggering more distrust about "what's true" . She states she's never lived in a correction and would prefer living in own apartment at DC; reiterates willingness to work with MHP again and comply with meds which we discuss in concrete detail as essential to continue on stabilization track; understands I will be increasing Risperdal to 8 mg qd. ASSESSMENT/PLAN: regression on exam with increase IOR/PI - likely a/w DC planning phase/ will increase Risperdal to 8 mg qd; L/M with publications editor for C/B to discuss possibility to move to probated DC plan to assure compliance w ith treatment post DC, 02/01/17 DAY UPDATE/EXAM: Nursing reports pt slept well, sustaining paced gains in resolving residual paranoid acuity and is spending more time in milieu and improving group attendance, reversing regression seen 2 days ago; on direct exam responds well to reintegrative inputs as we discuss current progress inpt goals of improving comfort being with and around others, attending to ADL's and the value of using these gains on DC in the community; residual PI and IOR are present but less visible. ASSESSMENT/PLAN: reversing transient regression seen last 2 days b/w residual paranoid acuity/ no change in meds or CP d.w Nursing in Rounds; C/B from pt's Public [employer] Tiffany Grullon pending. 02/02/17 09:00 DAY UPDATE/EXAM: Nursing reports pt slept well, c/w cares and meds, attending better to ADL's, participating better in groups/ on direct exam is engaged effectively, states she accepts biologic mother is her guardian but reaffirms she wants no contact but does want mother to continue to help in the concrete fashion I describe to her has been ongoing; also states she with work with Nursing to disentangle her hair in the interest of improving hygiene, finally agrees to accept depot Risperdal injections starting after coming weekend; DC planning also discussed; pt did well with reintegrative and clarifying in;puts during the session; did affirm the value of Cogentin second shift for akisthisia ASSESSMENT/PLAN: paced recompensation progress continues/ no change in made or management plan as d/w Nursing in Rounds; anticipate moving pt to DC end of next week 02/06/17 11:51 DAY UPDATE/EXAM: Nursing reports pt has continued paced improvement over last 3 days ; continues to display observable psychotic elements albeit with less intensity and frequency as she moves close to level of stability allowing DC/ on direct exam evidences more range and booth affective expression, diminished IOR and PI. ASSESSMENT/PLAN: improving course sustained/will administer Risperdal Consta 50 mg IM, continue po Risperdal 8 mg qd; will also continue Inderal added over weekend and standing Cogentin as previously ordered; CP reviewed with Nursing in Rounds; Inderal changed from prn to 20 mg tid 02/07/17 13:30 DAY ' UPDATE/EXAM: Nursing reports pt slept well, continues to progress in resolving residual psychotic acuity as she moves further toward a stable baseline/ on direct exam she presents as calm, softer facies c/w lessening active psychosis; remains with residual IOR Objective: Vital Signs Temp Pulse Resp BP Pulse Ox 36.6 C 118 H 18 108/74 93 02/07/17 06:00 02/07/17 09:06 02/07/17 06:00 02/07/17 09:06 02/07/17 06:00 ICD10 Worksheet Patient Problems: Problems Problem Status Onset Schizoaffective disorder Acute
[2017-02-07] MEDS: ACETAMINOPHEN 500 MG TAB PO PRN (15:52)
[2017-02-08] MEDS: NICOTINE 21 MG/24 HR PATCH TD SCH (08:30)
[2017-02-08] MEDS: BENZTROPINE MESYLATE 1 MG TAB PO SCH (08:30)
[2017-02-08] MEDS: risperiDONE 2 MG TAB PO SCH ×2 (08:30→20:23)
[2017-02-08] MEDS: PROPRANOLOL HCL 20 MG TAB PO SCH ×3 (08:30→20:24)
[2017-02-08] MEDS: AMOXICILLIN/CLAVULANATE POT 875/125 MG TAB PO SCH ×2 (08:30→20:23)
--- NOTE | 2017-02-08 09:13 | SOAPPROG ---
SOAP Progress Note Assessment/Plan: Assessment: Plan: 01/20/17 11:30 DAY UPDATE/EXAM: Nursing report pt is less isolative - eating in DR and attending selective groups, c/w cares and meds/ on exam presents as flat and constricted, residual PI with persecutory delusions but is more verbal and with better eye contact; acknowledges obliquely that she has guardian who is her MOC; responsive to reintegrative support; accepting increase in Risperdal dosing ASSESSMENT/PLAN: residual psychotic acuity but evidencing initial improvement/ will increase Risperdal to 2 mg bid; CP d/w Nursing in Rounds 01/23/17 08:00 DAY UPDATE/EXAM: Nursing reports that pt more visible in the milieu and attending selective groups; remains with regressed ADL's but is improving hygiene; c/w cares and meds/ on direct exam does engage and make good eye contact, spontaneously verbal, less guarded; states she won't brush hair because "I don' t want to look good and attract attention"; is responsive to reintegrative support and + reinforcement for meds compliance and socialization efforts ASSESSMENT/PLAN: early phase improvement; residual psychotic acuity/ intake call to MOC pending; anticipate titrating Risperdal dosing up, still considering request for COM; CP reviewed with Nursing in Rounds 01/24/17 11:00 DAY UPDATE/EXAM: Nursing reports pt's paced improvement continues in paced manner - continues with observable guardedness, PI, degree of isolation/ on direct exam continues to evidence circumscribed PI but is conversant with me with good eye contact; understands my positive reinforcing comments on her c ompliance with her treatment plan including compliance with med; understands her Risperdal dosing will be increased to 3 mg bid. INTAKE/MOC - pending as MOC and temporary guardian on C/B ASSESSMENT/PLAN: continues early phase improvement b/w residual psychotic acuity / increase Risperdal to 3mg bid; reintegrative CP d/w Nursing in rounds; c/b expected from [facility] for collateral expansion of data 01/25/17 14:20 DAY UPDATE/EXAM: Nursing reports pt sustaining paced progress in clearing psychotic acuity - still in early phase as pt's PI observable/ on direct exam pt appears more relaxed and with better spontaneous eye contact b/w residual PI and obliquely makes delusional references to MOC with an angry tone; affect with broadening range and lessening flatness; agrees to work with MHP after dC and knows her housing is being addressed; reinforced in her compliance with cares and meds and encouraged to eat in dining room ASSESSMENT/PLAN: diminished psychotic acuity/ no change in meds; CP to encourage all meals in DR - d/w Nursing in Rounds 01/26/17 14:42 DAY UPDATE/EXAM: Nursing reports paced gains over last 24 hrs evidenced by more organization of thought process, more visibility in milieu, improving ADL'S/ on direct exam pt makes consistent eye contact, appearance-hygiene improving; coherent conversant verbal mode and able to discuss alliance with accepting MHP referral and, if need be, working with the [facility]; positive reponse to reintegrative input during session. ASSESSMENT/PLAN: mid-phase in progress recompensating/ no change in meds; management plan d/w Nursing in Rounds with continued emphasis of increasing autonomy with ADL'S and reinforcing social ego functions. 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 ASSESSMENT/PLAN: improving course sustained with pt sharing more lifeline disclosure/ no change in meds, CP d/w Nursing in rounds; will reality test history with MOC whom pt now accepts as her guardian and acknowledges her helpful support. 01/28/17 12:02 DAY UPDATE/EXAM: Nursing reports pt sustaining engagement witn CP focus on socialization ADL's, sleep, and group attendance with progress on all fronts/ on direct exam pt discloses first psychiatric intervention was a one week hospitalization age 15 for depressive crisis with SI; she states no rx after that until emerging psychosis age 27; reminded pt of the information about lifeline history shared yesterday which she again reaffirmed; positive response to my pointing out again the capacity for life functioning she carries as indicated by this history ASSESSMENT/PLAN: improving course sustained with less psychotic residual observed qd and + gain a referenced above/ no change in meds or management plan ; reviewed case in Rounds with Nursing. 01/29/17 08;30 UPDATE/EXAM: Nursing reports continued descriptive and functional improvement noted as pt engages the Care Plan/ on direct exam pt evidences broadening range of affect, much less guarded, less flattening in affective expression; continues with + alliance about engaging post DC treatment plan with P. ASSESSMENT/PLAN: improving trend continues with continues progress in resolving residual psychotic acuity and moving toward stable baseline allowing move into DC planning phase/ no change in meds or management plan; initiate discussion of which community services indicated under the [facility] umbrella and options for housing at time of DC 01/30/17 09:00 DAY UPDATE/EXAM: Nursing reports paced improvement continues - is using more prns in last 1-2 days for reasons that are unclear/ on direct exam is engagable, conversant, able to comment on her subjective improvement and wants to know more about [facility] services; responsive to reintegrative support; unable to explain her demands for more prn meds recently ASSESSMENT/PLAN: recompensation progress continues - residual guardedness and social inhibitions; likely residual IOR/ will clarify further issue of increased prn meds use; also will explore probating pt's compliance with psychiatric treatment by contacting pt's court security officer per assist from CC; also expedite obtaining P records and contacting [facility] for DC planning 01/31/17 09:00 DAY UPDATE/EXAM: Nusing reports pt slept, relates in more guarded manner but remains present in the milieu and dining room, not as present in groups/ on direct exam pt expresses more overt PI and IOR, doesn't disagree that anxiety about beginning DC planning may be triggering more distrust about "what's true" . She states she's never lived in a mcf[facility] and would prefer living in own apartment at DC; reiterates willingness to work with MHP again and comply with meds which we discuss in concrete detail as essential to continue on stabilization track; understands I will be increasing Risperdal to 8 mg qd. ASSESSMENT/PLAN: regression on exam with increase IOR/PI - likely a/w DC planning phase/ will increase Risperdal to 8 mg qd; L/M with public health director for C/B to discuss possibility to move to probated DC plan to assure compliance w ith treatment post DC, 02/01/17 DAY UPDATE/EXAM: Nursing reports pt slept well, sustaining paced gains in resolving residual paranoid acuity and is spending more time in milieu and improving group attendance, reversing regression seen 2 days ago; on direct exam responds well to reintegrative inputs as we discuss current progress inpt goals of improving comfort being with and around others, attending to ADL's and the value of using these gains on DC in the community; residual PI and IOR are present but less visible. ASSESSMENT/PLAN: reversing transient regression seen last 2 days b/w residual paranoid acuity/ no change in meds or CP d.w Nursing in Rounds; C/B from pt's [employer] T[facility] Grullon pending. 02/02/17 09:00 DAY UPDATE/EXAM: Nursing reports pt slept well, c/w cares and meds, attending better to ADL's, participating better in groups/ on direct exam is engaged effectively, states she accepts biologic mother is her guardian but reaffirms she wants no contact but does want mother to continue to help in the concrete fashion I describe to her has been ongoing; also states she with work with Nursing to disentangle her hair in the interest of improving hygiene, finally agrees to accept depot Risperdal injections starting after coming weekend; DC planning also discussed; pt did well with reintegrative and clarifying in;puts during the session; did affirm the value of Cogentin second shift for akisthisia ASSESSMENT/PLAN: paced recompensation progress continues/ no change in made or management plan as d/w Nursing in Rounds; anticipate moving pt to DC end of next week 02/06/17 11:51 DAY UPDATE/EXAM: Nursing reports pt has continued paced improvement over last 3 days ; continues to display observable psychotic elements albeit with less intensity and frequency as she moves close to level of stability allowing DC/ on direct exam evidences more range and booth affective expression, diminished IOR and PI. ASSESSMENT/PLAN: improving course sustained/will administer Risperdal Consta 50 mg IM, continue po Risperdal 8 mg qd; will also continue Inderal added over weekend and standing Cogentin as previously ordered; CP reviewed with Nursing in Rounds; Inderal changed from prn to 20 mg tid 02/07/17 13:30 DAY ' UPDATE/EXAM: Nursing reports pt slept well, continues to progress in resolving residual psychotic acuity as she moves further toward a stable baseline/ on direct exam she presents as calm, softer facies c/w lessening active psychosis; remains with residual IOR ASSESSMENT/PLAN: continuing to evidence daily progress in resolving psychotic acuity and gaining in social ego functions/ pt to get Risperdal Consta today; o/ w no changes in CP and medications 02/08/17 DAY ' UPDDATE/EXAM: Objective: Vital Signs Temp Pulse Resp BP Pulse Ox 36.5 C 126 H 91 H 110/76 16 L 02/08/17 06:00 02/08/17 08:30 02/08/17 06:00 02/08/17 08:30 02/08/17 06:00 ICD10 Worksheet Patient Problems: Problems Problem Status Onset Schizoaffective disorder Acute
[2017-02-08] MEDS ORDERED: TUBERCULIN (PPD) 5 TU/0.1 ML SYRINGE ID ONE (11:00)
[2017-02-08] MEDS: NICOTINE POLACRILEX 2 MG GUM B PRN ×2 (14:43→18:33)
--- NOTE | 2017-02-08 15:37 | SOAPPROG ---
SOAP Progress Note Assessment/Plan: Assessment: Plan: 01/20/17 11:30 DAY UPDATE/EXAM: Nursing report pt is less isolative - eating in DR and attending selective groups, c/w cares and meds/ on exam presents as flat and constricted, residual PI with persecutory delusions but is more verbal and with better eye contact; acknowledges obliquely that she has guardian who is her MOC; responsive to reintegrative support; accepting increase in Risperdal dosing ASSESSMENT/PLAN: residual psychotic acuity but evidencing initial improvement/ will increase Risperdal to 2 mg bid; CP d/w Nursing in Rounds 01/23/17 08:00 DAY UPDATE/EXAM: Nursing reports that pt more visible in the milieu and attending selective groups; remains with regressed ADL's but is improving hygiene; c/w cares and meds/ on direct exam does engage and make good eye contact, spontaneously verbal, less guarded; states she won't brush hair because "I don' t want to look good and attract attention"; is responsive to reintegrative support and + reinforcement for meds compliance and socialization efforts ASSESSMENT/PLAN: early phase improvement; residual psychotic acuity/ intake call to MOC pending; anticipate titrating Risperdal dosing up, still considering request for COM; CP reviewed with Nursing in Rounds 01/24/17 11:00 DAY UPDATE/EXAM: Nursing reports pt's paced improvement continues in paced manner - continues with observable guardedness, PI, degree of isolation/ on direct exam continues to evidence circumscribed PI but is conversant with me with good eye contact; understands my positive reinforcing comments on her c ompliance with her treatment plan including compliance with med; understands her Risperdal dosing will be increased to 3 mg bid. INTAKE/MOC - pending as MOC and temporary guardian on C/B ASSESSMENT/PLAN: continues early phase improvement b/w residual psychotic acuity / increase Risperdal to 3mg bid; reintegrative CP d/w Nursing in rounds; c/b expected from [facility] for collateral expansion of data 01/25/17 14:20 DAY UPDATE/EXAM: Nursing reports pt sustaining paced progress in clearing psychotic acuity - still in early phase as pt's PI observable/ on direct exam pt appears more relaxed and with better spontaneous eye contact b/w residual PI and obliquely makes delusional references to MOC with an angry tone; affect with broadening range and lessening flatness; agrees to work with MHP after dC and knows her housing is being addressed; reinforced in her compliance with cares and meds and encouraged to eat in dining room ASSESSMENT/PLAN: diminished psychotic acuity/ no change in meds; CP to encourage all meals in DR - d/w Nursing in Rounds 01/26/17 14:42 DAY UPDATE/EXAM: Nursing reports paced gains over last 24 hrs evidenced by more organization of thought process, more visibility in milieu, improving ADL'S/ on direct exam pt makes consistent eye contact, appearance-hygiene improving; coherent conversant verbal mode and able to discuss alliance with accepting MHP referral and, if need be, working with the [facility]; positive reponse to reintegrative input during session. ASSESSMENT/PLAN: mid-phase in progress recompensating/ no change in meds; management plan d/w Nursing in Rounds with continued emphasis of increasing autonomy with ADL'S and reinforcing social ego functions. 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 ASSESSMENT/PLAN: improving course sustained with pt sharing more lifeline disclosure/ no change in meds, CP d/w Nursing in rounds; will reality test history with MOC whom pt now accepts as her guardian and acknowledges her helpful support. 01/28/17 12:02 DAY UPDATE/EXAM: Nursing reports pt sustaining engagement witn CP focus on socialization ADL's, sleep, and group attendance with progress on all fronts/ on direct exam pt discloses first psychiatric intervention was a one week hospitalization age 15 for depressive crisis with SI; she states no rx after that until emerging psychosis age 27; reminded pt of the information about lifeline history shared yesterday which she again reaffirmed; positive response to my pointing out again the capacity for life functioning she carries as indicated by this history ASSESSMENT/PLAN: improving course sustained with less psychotic residual observed qd and + gain a referenced above/ no change in meds or management plan ; reviewed case in Rounds with Nursing. 01/29/17 08;30 UPDATE/EXAM: Nursing reports continued descriptive and functional improvement noted as pt engages the Care Plan/ on direct exam pt evidences broadening range of affect, much less guarded, less flattening in affective expression; continues with + alliance about engaging post DC treatment plan with P. ASSESSMENT/PLAN: improving trend continues with continues progress in resolving residual psychotic acuity and moving toward stable baseline allowing move into DC planning phase/ no change in meds or management plan; initiate discussion of which community services indicated under the [facility] umbrella and options for housing at time of DC 01/30/17 09:00 DAY UPDATE/EXAM: Nursing reports paced improvement continues - is using more prns in last 1-2 days for reasons that are unclear/ on direct exam is engagable, conversant, able to comment on her subjective improvement and wants to know more about [facility] services; responsive to reintegrative support; unable to explain her demands for more prn meds recently ASSESSMENT/PLAN: recompensation progress continues - residual guardedness and social inhibitions; likely residual IOR/ will clarify further issue of increased prn meds use; also will explore probating pt's compliance with psychiatric treatment by contacting pt's juvenile corrections officer per assist from CC; also expedite obtaining P records and contacting [facility] for DC planning 01/31/17 09:00 DAY UPDATE/EXAM: Nusing reports pt slept, relates in more guarded manner but remains present in the milieu and dining room, not as present in groups/ on direct exam pt expresses more overt PI and IOR, doesn't disagree that anxiety about beginning DC planning may be triggering more distrust about "what's true" . She states she's never lived in a correction and would prefer living in own apartment at DC; reiterates willingness to work with MHP again and comply with meds which we discuss in concrete detail as essential to continue on stabilization track; understands I will be increasing Risperdal to 8 mg qd. ASSESSMENT/PLAN: regression on exam with increase IOR/PI - likely a/w DC planning phase/ will increase Risperdal to 8 mg qd; L/M with public records researcher for C/B to discuss possibility to move to probated DC plan to assure compliance w ith treatment post DC, 02/01/17 DAY UPDATE/EXAM: Nursing reports pt slept well, sustaining paced gains in resolving residual paranoid acuity and is spending more time in milieu and improving group attendance, reversing regression seen 2 days ago; on direct exam responds well to reintegrative inputs as we discuss current progress inpt goals of improving comfort being with and around others, attending to ADL's and the value of using these gains on DC in the community; residual PI and IOR are present but less visible. ASSESSMENT/PLAN: reversing transient regression seen last 2 days b/w residual paranoid acuity/ no change in meds or CP d.w Nursing in Rounds; C/B from pt's [employer] T[facility] Grullon pending. 02/02/17 09:00 DAY UPDATE/EXAM: Nursing reports pt slept well, c/w cares and meds, attending better to ADL's, participating better in groups/ on direct exam is engaged effectively, states she accepts biologic mother is her guardian but reaffirms she wants no contact but does want mother to continue to help in the concrete fashion I describe to her has been ongoing; also states she with work with Nursing to disentangle her hair in the interest of improving hygiene, finally agrees to accept depot Risperdal injections starting after coming weekend; DC planning also discussed; pt did well with reintegrative and clarifying in;puts during the session; did affirm the value of Cogentin second shift for akisthisia ASSESSMENT/PLAN: paced recompensation progress continues/ no change in made or management plan as d/w Nursing in Rounds; anticipate moving pt to DC end of next week 02/06/17 11:51 DAY UPDATE/EXAM: Nursing reports pt has continued paced improvement over last 3 days ; continues to display observable psychotic elements albeit with less intensity and frequency as she moves close to level of stability allowing DC/ on direct exam evidences more range and booth affective expression, diminished IOR and PI. ASSESSMENT/PLAN: improving course sustained/will administer Risperdal Consta 50 mg IM, continue po Risperdal 8 mg qd; will also continue Inderal added over weekend and standing Cogentin as previously ordered; CP reviewed with Nursing in Rounds; Inderal changed from prn to 20 mg tid 02/07/17 13:30 DAY UPDATE/EXAM: Nursing reports pt slept well, continues to progress in resolving residual psychotic acuity as she moves further toward a stable baseline/ on direct exam she presents as calm, softer facies c/w lessening active psychosis; remains with residual IOR ASSESSMENT/PLAN: continuing to evidence daily progress in resolving psychotic acuity and gaining in social ego functions/ pt to get Risperdal Consta today; o/ w no changes in CP and medications 02/08/17 11:00 DAY UPDATE/EXAM: Nursing reports pt continues descriptive progress; c/w cares and meds and sustaining psychosocial engagement per rx plan/ on direct exam presents with further lessening of residual psychosis, is calmer, and tolerates productively her first apeker phone exposure to her mother; doesn't talk directly to mother but comments to me are aimed for mother to hear; mother's comments per my direction with me as the focus. ASSESSMENT/PLAN: sustaining progress as pt works thru DC planning phase/ no change in current meds or management plan as discussed with Nursing in Rounds; tentative DC date for 02/13 to allow pt direct placement into [facility] on DC day Objective: Vital Signs Temp Pulse Resp BP Pulse Ox 36.5 C 126 H 91 H 110/76 16 L 02/08/17 06:00 02/08/17 08:30 02/08/17 06:00 02/08/17 08:30 02/08/17 06:00 ICD10 Worksheet Patient Problems: Problems Problem Status Onset Schizoaffective disorder Acute
[2017-02-09 06:20] VITALS: RESP 14
--- NOTE | 2017-02-09 08:20 | SOAPPROG ---
SOAP Progress Note Assessment/Plan: Assessment: Plan: 01/20/17 11:30 DAY UPDATE/EXAM: Nursing report pt is less isolative - eating in DR and attending selective groups, c/w cares and meds/ on exam presents as flat and constricted, residual PI with persecutory delusions but is more verbal and with better eye contact; acknowledges obliquely that she has guardian who is her MOC; responsive to reintegrative support; accepting increase in Risperdal dosing ASSESSMENT/PLAN: residual psychotic acuity but evidencing initial improvement/ will increase Risperdal to 2 mg bid; CP d/w Nursing in Rounds 01/23/17 08:00 DAY UPDATE/EXAM: Nursing reports that pt more visible in the milieu and attending selective groups; remains with regressed ADL's but is improving hygiene; c/w cares and meds/ on direct exam does engage and make good eye contact, spontaneously verbal, less guarded; states she won't brush hair because "I don' t want to look good and attract attention"; is responsive to reintegrative support and + reinforcement for meds compliance and socialization efforts ASSESSMENT/PLAN: early phase improvement; residual psychotic acuity/ intake call to MOC pending; anticipate titrating Risperdal dosing up, still considering request for COM; CP reviewed with Nursing in Rounds 01/24/17 11:00 DAY UPDATE/EXAM: Nursing reports pt's paced improvement continues in paced manner - continues with observable guardedness, PI, degree of isolation/ on direct exam continues to evidence circumscribed PI but is conversant with me with good eye contact; understands my positive reinforcing comments on her c ompliance with her treatment plan including compliance with med; understands her Risperdal dosing will be increased to 3 mg bid. INTAKE/MOC - pending as MOC and temporary guardian on C/B ASSESSMENT/PLAN: continues early phase improvement b/w residual psychotic acuity / increase Risperdal to 3mg bid; reintegrative CP d/w Nursing in rounds; c/b expected from [facility] for collateral expansion of data 01/25/17 14:20 DAY UPDATE/EXAM: Nursing reports pt sustaining paced progress in clearing psychotic acuity - still in early phase as pt's PI observable/ on direct exam pt appears more relaxed and with better spontaneous eye contact b/w residual PI and obliquely makes delusional references to MOC with an angry tone; affect with broadening range and lessening flatness; agrees to work with MHP after dC and knows her housing is being addressed; reinforced in her compliance with cares and meds and encouraged to eat in dining room ASSESSMENT/PLAN: diminished psychotic acuity/ no change in meds; CP to encourage all meals in DR - d/w Nursing in Rounds 01/26/17 14:42 DAY UPDATE/EXAM: Nursing reports paced gains over last 24 hrs evidenced by more organization of thought process, more visibility in milieu, improving ADL'S/ on direct exam pt makes consistent eye contact, appearance-hygiene improving; coherent conversant verbal mode and able to discuss alliance with accepting MHP referral and, if need be, working with the [facility]; positive reponse to reintegrative input during session. ASSESSMENT/PLAN: mid-phase in progress recompensating/ no change in meds; management plan d/w Nursing in Rounds with continued emphasis of increasing autonomy with ADL'S and reinforcing social ego functions. 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 ASSESSMENT/PLAN: improving course sustained with pt sharing more lifeline disclosure/ no change in meds, CP d/w Nursing in rounds; will reality test history with MOC whom pt now accepts as her guardian and acknowledges her helpful support. 01/28/17 12:02 DAY UPDATE/EXAM: Nursing reports pt sustaining engagement witn CP focus on socialization ADL's, sleep, and group attendance with progress on all fronts/ on direct exam pt discloses first psychiatric intervention was a one week hospitalization age 15 for depressive crisis with SI; she states no rx after that until emerging psychosis age 27; reminded pt of the information about lifeline history shared yesterday which she again reaffirmed; positive response to my pointing out again the capacity for life functioning she carries as indicated by this history ASSESSMENT/PLAN: improving course sustained with less psychotic residual observed qd and + gain a referenced above/ no change in meds or management plan ; reviewed case in Rounds with Nursing. 01/29/17 08;30 UPDATE/EXAM: Nursing reports continued descriptive and functional improvement noted as pt engages the Care Plan/ on direct exam pt evidences broadening range of affect, much less guarded, less flattening in affective expression; continues with + alliance about engaging post DC treatment plan with P. ASSESSMENT/PLAN: improving trend continues with continues progress in resolving residual psychotic acuity and moving toward stable baseline allowing move into DC planning phase/ no change in meds or management plan; initiate discussion of which community services indicated under the [facility] umbrella and options for housing at time of DC 01/30/17 09:00 DAY UPDATE/EXAM: Nursing reports paced improvement continues - is using more prns in last 1-2 days for reasons that are unclear/ on direct exam is engagable, conversant, able to comment on her subjective improvement and wants to know more about [facility] services; responsive to reintegrative support; unable to explain her demands for more prn meds recently ASSESSMENT/PLAN: recompensation progress continues - residual guardedness and social inhibitions; likely residual IOR/ will clarify further issue of increased prn meds use; also will explore probating pt's compliance with psychiatric treatment by contacting pt's facility security officer per assist from CC; also expedite obtaining P records and contacting [facility] for DC planning 01/31/17 09:00 DAY UPDATE/EXAM: Nusing reports pt slept, relates in more guarded manner but remains present in the milieu and dining room, not as present in groups/ on direct exam pt expresses more overt PI and IOR, doesn't disagree that anxiety about beginning DC planning may be triggering more distrust about "what's true" . She states she's never lived in a jail and would prefer living in own apartment at DC; reiterates willingness to work with MHP again and comply with meds which we discuss in concrete detail as essential to continue on stabilization track; understands I will be increasing Risperdal to 8 mg qd. ASSESSMENT/PLAN: regression on exam with increase IOR/PI - likely a/w DC planning phase/ will increase Risperdal to 8 mg qd; L/M with public health aides teacher for C/B to discuss possibility to move to probated DC plan to assure compliance w ith treatment post DC, 02/01/17 DAY UPDATE/EXAM: Nursing reports pt slept well, sustaining paced gains in resolving residual paranoid acuity and is spending more time in milieu and improving group attendance, reversing regression seen 2 days ago; on direct exam responds well to reintegrative inputs as we discuss current progress inpt goals of improving comfort being with and around others, attending to ADL's and the value of using these gains on DC in the community; residual PI and IOR are present but less visible. ASSESSMENT/PLAN: reversing transient regression seen last 2 days b/w residual paranoid acuity/ no change in meds or CP d.w Nursing in Rounds; C/B from pt's [employer] [facility]ullon pending. 02/02/17 09:00 DAY UPDATE/EXAM: Nursing reports pt slept well, c/w cares and meds, attending better to ADL's, participating better in groups/ on direct exam is engaged effectively, states she accepts biologic mother is her guardian but reaffirms she wants no contact but does want mother to continue to help in the concrete fashion I describe to her has been ongoing; also states she with work with Nursing to disentangle her hair in the interest of improving hygiene, finally agrees to accept depot Risperdal injections starting after coming weekend; DC planning also discussed; pt did well with reintegrative and clarifying in;puts during the session; did affirm the value of Cogentin second shift for akisthisia ASSESSMENT/PLAN: paced recompensation progress continues/ no change in made or management plan as d/w Nursing in Rounds; anticipate moving pt to DC end of next week 02/06/17 11:51 DAY UPDATE/EXAM: Nursing reports pt has continued paced improvement over last 3 days ; continues to display observable psychotic elements albeit with less intensity and frequency as she moves close to level of stability allowing DC/ on direct exam evidences more range and booth affective expression, diminished IOR and PI. ASSESSMENT/PLAN: improving course sustained/will administer Risperdal Consta 50 mg IM, continue po Risperdal 8 mg qd; will also continue Inderal added over weekend and standing Cogentin as previously ordered; CP reviewed with Nursing in Rounds; Inderal changed from prn to 20 mg tid 02/07/17 13:30 DAY UPDATE/EXAM: Nursing reports pt slept well, continues to progress in resolving residual psychotic acuity as she moves further toward a stable baseline/ on direct exam she presents as calm, softer facies c/w lessening active psychosis; remains with residual IOR ASSESSMENT/PLAN: continuing to evidence daily progress in resolving psychotic acuity and gaining in social ego functions/ pt to get Risperdal Consta today; o/ w no changes in CP and medications 02/08/17 11:00 DAY UPDATE/EXAM: Nursing reports pt continues descriptive progress; c/w cares and meds and sustaining psychosocial engagement per rx plan/ on direct exam presents with further lessening of residual psychosis, is calmer, and tolerates productively her first speaker phone exposure to her mother; doesn't talk directly to mother but comments to me are aimed for mother to hear; mother's comments per my direction with me as the focus. ASSESSMENT/PLAN: sustaining progress as pt works thru DC planning phase/ no change in current meds or management plan as discussed with Nursing in Rounds; tentative DC date for 02/13 to allow pt direct placement into [facility] on DC day; depot Risperdal to be injected today 02/09/17 DAY UPDATE/EXAM: Objective: Vital Signs Temp Pulse Resp BP Pulse Ox 36.5 C 72 14 108/65 94 02/08/17 06:00 02/09/17 06:19 02/09/17 06:19 02/09/17 06:19 02/09/17 06:19 ICD10 Worksheet Patient Problems: Problems Problem Status Onset Schizoaffective disorder Acute
[2017-02-09] MEDS: AMOXICILLIN/CLAVULANATE POT 875/125 MG TAB PO SCH ×2 (08:49→20:18)
[2017-02-09] MEDS: risperiDONE 2 MG TAB PO SCH ×2 (08:49→20:19)
[2017-02-09] MEDS: BENZTROPINE MESYLATE 1 MG TAB PO SCH (08:50)
[2017-02-09] MEDS: PROPRANOLOL HCL 20 MG TAB PO SCH ×3 (08:51→20:19)
[2017-02-09] MEDS: NICOTINE 21 MG/24 HR PATCH TD SCH (08:51)
[2017-02-09] MEDS: IBUPROFEN 200 MG TAB PO PRN ×2 (08:51→20:19)
[2017-02-09] MEDS: NICOTINE POLACRILEX 2 MG GUM B PRN ×2 (10:54→13:56)
--- NOTE | 2017-02-09 12:55 | SOAPPROG ---
SOAP Progress Note Assessment/Plan: Assessment: Plan: 01/20/17 11:30 DAY UPDATE/EXAM: Nursing report pt is less isolative - eating in DR and attending selective groups, c/w cares and meds/ on exam presents as flat and constricted, residual PI with persecutory delusions but is more verbal and with better eye contact; acknowledges obliquely that she has guardian who is her MOC; responsive to reintegrative support; accepting increase in Risperdal dosing ASSESSMENT/PLAN: residual psychotic acuity but evidencing initial improvement/ will increase Risperdal to 2 mg bid; CP d/w Nursing in Rounds 01/23/17 08:00 DAY UPDATE/EXAM: Nursing reports that pt more visible in the milieu and attending selective groups; remains with regressed ADL's but is improving hygiene; c/w cares and meds/ on direct exam does engage and make good eye contact, spontaneously verbal, less guarded; states she won't brush hair because "I don' t want to look good and attract attention"; is responsive to reintegrative support and + reinforcement for meds compliance and socialization efforts ASSESSMENT/PLAN: early phase improvement; residual psychotic acuity/ intake call to MOC pending; anticipate titrating Risperdal dosing up, still considering request for COM; CP reviewed with Nursing in Rounds 01/24/17 11:00 DAY UPDATE/EXAM: Nursing reports pt's paced improvement continues in paced manner - continues with observable guardedness, PI, degree of isolation/ on direct exam continues to evidence circumscribed PI but is conversant with me with good eye contact; understands my positive reinforcing comments on her c ompliance with her treatment plan including compliance with med; understands her Risperdal dosing will be increased to 3 mg bid. INTAKE/MOC - pending as MOC and temporary guardian on C/B ASSESSMENT/PLAN: continues early phase improvement b/w residual psychotic acuity / increase Risperdal to 3mg bid; reintegrative CP d/w Nursing in rounds; c/b expected from [facility] for collateral expansion of data 01/25/17 14:20 DAY UPDATE/EXAM: Nursing reports pt sustaining paced progress in clearing psychotic acuity - still in early phase as pt's PI observable/ on direct exam pt appears more relaxed and with better spontaneous eye contact b/w residual PI and obliquely makes delusional references to MOC with an angry tone; affect with broadening range and lessening flatness; agrees to work with MHP after dC and knows her housing is being addressed; reinforced in her compliance with cares and meds and encouraged to eat in dining room ASSESSMENT/PLAN: diminished psychotic acuity/ no change in meds; CP to encourage all meals in DR - d/w Nursing in Rounds 01/26/17 14:42 DAY UPDATE/EXAM: Nursing reports paced gains over last 24 hrs evidenced by more organization of thought process, more visibility in milieu, improving ADL'S/ on direct exam pt makes consistent eye contact, appearance-hygiene improving; coherent conversant verbal mode and able to discuss alliance with accepting MHP referral and, if need be, working with the [facility]; positive reponse to reintegrative input during session. ASSESSMENT/PLAN: mid-phase in progress recompensating/ no change in meds; management plan d/w Nursing in Rounds with continued emphasis of increasing autonomy with ADL'S and reinforcing social ego functions. 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 ASSESSMENT/PLAN: improving course sustained with pt sharing more lifeline disclosure/ no change in meds, CP d/w Nursing in rounds; will reality test history with MOC whom pt now accepts as her guardian and acknowledges her helpful support. 01/28/17 12:02 DAY UPDATE/EXAM: Nursing reports pt sustaining engagement witn CP focus on socialization ADL's, sleep, and group attendance with progress on all fronts/ on direct exam pt discloses first psychiatric intervention was a one week hospitalization age 15 for depressive crisis with SI; she states no rx after that until emerging psychosis age 27; reminded pt of the information about lifeline history shared yesterday which she again reaffirmed; positive response to my pointing out again the capacity for life functioning she carries as indicated by this history ASSESSMENT/PLAN: improving course sustained with less psychotic residual observed qd and + gain a referenced above/ no change in meds or management plan ; reviewed case in Rounds with Nursing. 01/29/17 08;30 UPDATE/EXAM: Nursing reports continued descriptive and functional improvement noted as pt engages the Care Plan/ on direct exam pt evidences broadening range of affect, much less guarded, less flattening in affective expression; continues with + alliance about engaging post DC treatment plan with P. ASSESSMENT/PLAN: improving trend continues with continues progress in resolving residual psychotic acuity and moving toward stable baseline allowing move into DC planning phase/ no change in meds or management plan; initiate discussion of which community services indicated under the [facility] umbrella and options for housing at time of DC 01/30/17 09:00 DAY UPDATE/EXAM: Nursing reports paced improvement continues - is using more prns in last 1-2 days for reasons that are unclear/ on direct exam is engagable, conversant, able to comment on her subjective improvement and wants to know more about [facility] services; responsive to reintegrative support; unable to explain her demands for more prn meds recently ASSESSMENT/PLAN: recompensation progress continues - residual guardedness and social inhibitions; likely residual IOR/ will clarify further issue of increased prn meds use; also will explore probating pt's compliance with psychiatric treatment by contacting pt's evp and chief operating officer per assist from CC; also expedite obtaining P records and contacting [facility] for DC planning 01/31/17 09:00 DAY UPDATE/EXAM: Nusing reports pt slept, relates in more guarded manner but remains present in the milieu and dining room, not as present in groups/ on direct exam pt expresses more overt PI and IOR, doesn't disagree that anxiety about beginning DC planning may be triggering more distrust about "what's true" . She states she's never lived in a fci and would prefer living in own apartment at DC; reiterates willingness to work with MHP again and comply with meds which we discuss in concrete detail as essential to continue on stabilization track; understands I will be increasing Risperdal to 8 mg qd. ASSESSMENT/PLAN: regression on exam with increase IOR/PI - likely a/w DC planning phase/ will increase Risperdal to 8 mg qd; L/M with public safety teacher for C/B to discuss possibility to move to probated DC plan to assure compliance w ith treatment post DC, 02/01/17 DAY UPDATE/EXAM: Nursing reports pt slept well, sustaining paced gains in resolving residual paranoid acuity and is spending more time in milieu and improving group attendance, reversing regression seen 2 days ago; on direct exam responds well to reintegrative inputs as we discuss current progress inpt goals of improving comfort being with and around others, attending to ADL's and the value of using these gains on DC in the community; residual PI and IOR are present but less visible. ASSESSMENT/PLAN: reversing transient regression seen last 2 days b/w residual paranoid acuity/ no change in meds or CP d.w Nursing in Rounds; C/B from pt's Public [employer] T[facility] Grullon pending. 02/02/17 09:00 DAY UPDATE/EXAM: Nursing reports pt slept well, c/w cares and meds, attending better to ADL's, participating better in groups/ on direct exam is engaged effectively, states she accepts biologic mother is her guardian but reaffirms she wants no contact but does want mother to continue to help in the concrete fashion I describe to her has been ongoing; also states she with work with Nursing to disentangle her hair in the interest of improving hygiene, finally agrees to accept depot Risperdal injections starting after coming weekend; DC planning also discussed; pt did well with reintegrative and clarifying in;puts during the session; did affirm the value of Cogentin second shift for akisthisia ASSESSMENT/PLAN: paced recompensation progress continues/ no change in made or management plan as d/w Nursing in Rounds; anticipate moving pt to DC end of next week 02/06/17 11:51 DAY UPDATE/EXAM: Nursing reports pt has continued paced improvement over last 3 days ; continues to display observable psychotic elements albeit with less intensity and frequency as she moves close to level of stability allowing DC/ on direct exam evidences more range and booth affective expression, diminished IOR and PI. ASSESSMENT/PLAN: improving course sustained/will administer Risperdal Consta 50 mg IM, continue po Risperdal 8 mg qd; will also continue Inderal added over weekend and standing Cogentin as previously ordered; CP reviewed with Nursing in Rounds; Inderal changed from prn to 20 mg tid 02/07/17 13:30 DAY UPDATE/EXAM: Nursing reports pt slept well, continues to progress in resolving residual psychotic acuity as she moves further toward a stable baseline/ on direct exam she presents as calm, softer facies c/w lessening active psychosis; remains with residual IOR ASSESSMENT/PLAN: continuing to evidence daily progress in resolving psychotic acuity and gaining in social ego functions/ pt to get Risperdal Consta today; o/ w no changes in CP and medications 02/08/17 11:00 DAY UPDATE/EXAM: Nursing reports pt continues descriptive progress; c/w cares and meds and sustaining psychosocial engagement per rx plan/ on direct exam presents with further lessening of residual psychosis, is calmer, and tolerates productively her first speaker phone exposure to her mother; doesn't talk directly to mother but comments to me are aimed for mother to hear; mother's comments per my direction with me as the focus. ASSESSMENT/PLAN: sustaining progress as pt works thru DC planning phase/ no change in current meds or management plan as discussed with Nursing in Rounds; tentative DC date for 02/13 to allow pt direct placement into [facility] on DC day; depot Risperdal to be injected today 02/09/17 08:30 DAY UPDATE/EXAM: Nursing reports,pt progress continues with ongoing process in resolving residual psychotic acuity in parallel with increase social comfort and imporving ADL's as works thru dc planning phase/ on direct exam pt is calm, cooperative, and conversant; meds reviewed, progress updated, dc planning reviewed, famiy relationships discussed wrt to goals with both MOC and DOC ASSESSMENT/PLAN: improving course sustained/ pt did get Consta injection yesterday; no change in meds or management as d/w Nursing in Rounds Objective: Vital Signs Temp Pulse Resp BP Pulse Ox 36.5 C 114 H 14 112/77 94 02/08/17 06:00 02/09/17 08:51 02/09/17 06:19 02/09/17 08:51 02/09/17 06:19 ICD10 Worksheet Patient Problems: Problems Problem Status Onset Schizoaffective disorder Acute
[2017-02-09] MEDS: ACETAMINOPHEN 500 MG TAB PO PRN (16:47)
--- NOTE | 2017-02-10 06:32 | SOAPPROG ---
SOAP Progress Note Assessment/Plan: Assessment: Plan: 01/20/17 11:30 DAY UPDATE/EXAM: Nursing report pt is less isolative - eating in DR and attending selective groups, c/w cares and meds/ on exam presents as flat and constricted, residual PI with persecutory delusions but is more verbal and with better eye contact; acknowledges obliquely that she has guardian who is her MOC; responsive to reintegrative support; accepting increase in Risperdal dosing ASSESSMENT/PLAN: residual psychotic acuity but evidencing initial improvement/ will increase Risperdal to 2 mg bid; CP d/w Nursing in Rounds 01/23/17 08:00 DAY UPDATE/EXAM: Nursing reports that pt more visible in the milieu and attending selective groups; remains with regressed ADL's but is improving hygiene; c/w cares and meds/ on direct exam does engage and make good eye contact, spontaneously verbal, less guarded; states she won't brush hair because "I don' t want to look good and attract attention"; is responsive to reintegrative support and + reinforcement for meds compliance and socialization efforts ASSESSMENT/PLAN: early phase improvement; residual psychotic acuity/ intake call to MOC pending; anticipate titrating Risperdal dosing up, still considering request for COM; CP reviewed with Nursing in Rounds 01/24/17 11:00 DAY UPDATE/EXAM: Nursing reports pt's paced improvement continues in paced manner - continues with observable guardedness, PI, degree of isolation/ on direct exam continues to evidence circumscribed PI but is conversant with me with good eye contact; understands my positive reinforcing comments on her c ompliance with her treatment plan including compliance with med; understands her Risperdal dosing will be increased to 3 mg bid. INTAKE/MOC - pending as MOC and temporary guardian on C/B ASSESSMENT/PLAN: continues early phase improvement b/w residual psychotic acuity / increase Risperdal to 3mg bid; reintegrative CP d/w Nursing in rounds; c/b expected from [facility] for collateral expansion of data 01/25/17 14:20 DAY UPDATE/EXAM: Nursing reports pt sustaining paced progress in clearing psychotic acuity - still in early phase as pt's PI observable/ on direct exam pt appears more relaxed and with better spontaneous eye contact b/w residual PI and obliquely makes delusional references to MOC with an angry tone; affect with broadening range and lessening flatness; agrees to work with MHP after dC and knows her housing is being addressed; reinforced in her compliance with cares and meds and encouraged to eat in dining room ASSESSMENT/PLAN: diminished psychotic acuity/ no change in meds; CP to encourage all meals in DR - d/w Nursing in Rounds 01/26/17 14:42 DAY UPDATE/EXAM: Nursing reports paced gains over last 24 hrs evidenced by more organization of thought process, more visibility in milieu, improving ADL'S/ on direct exam pt makes consistent eye contact, appearance-hygiene improving; coherent conversant verbal mode and able to discuss alliance with accepting MHP referral and, if need be, working with the [facility]; positive reponse to reintegrative input during session. ASSESSMENT/PLAN: mid-phase in progress recompensating/ no change in meds; management plan d/w Nursing in Rounds with continued emphasis of increasing autonomy with ADL'S and reinforcing social ego functions. 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 ASSESSMENT/PLAN: improving course sustained with pt sharing more lifeline disclosure/ no change in meds, CP d/w Nursing in rounds; will reality test history with MOC whom pt now accepts as her guardian and acknowledges her helpful support. 01/28/17 12:02 DAY UPDATE/EXAM: Nursing reports pt sustaining engagement witn CP focus on socialization ADL's, sleep, and group attendance with progress on all fronts/ on direct exam pt discloses first psychiatric intervention was a one week hospitalization age 15 for depressive crisis with SI; she states no rx after that until emerging psychosis age 27; reminded pt of the information about lifeline history shared yesterday which she again reaffirmed; positive response to my pointing out again the capacity for life functioning she carries as indicated by this history ASSESSMENT/PLAN: improving course sustained with less psychotic residual observed qd and + gain a referenced above/ no change in meds or management plan ; reviewed case in Rounds with Nursing. 01/29/17 08;30 UPDATE/EXAM: Nursing reports continued descriptive and functional improvement noted as pt engages the Care Plan/ on direct exam pt evidences broadening range of affect, much less guarded, less flattening in affective expression; continues with + alliance about engaging post DC treatment plan with P. ASSESSMENT/PLAN: improving trend continues with continues progress in resolving residual psychotic acuity and moving toward stable baseline allowing move into DC planning phase/ no change in meds or management plan; initiate discussion of which community services indicated under the [facility] umbrella and options for housing at time of DC 01/30/17 09:00 DAY UPDATE/EXAM: Nursing reports paced improvement continues - is using more prns in last 1-2 days for reasons that are unclear/ on direct exam is engagable, conversant, able to comment on her subjective improvement and wants to know more about [facility] services; responsive to reintegrative support; unable to explain her demands for more prn meds recently ASSESSMENT/PLAN: recompensation progress continues - residual guardedness and social inhibitions; likely residual IOR/ will clarify further issue of increased prn meds use; also will explore probating pt's compliance with psychiatric treatment by contacting pt's chief supply chain officer per assist from CC; also expedite obtaining P records and contacting [facility] for DC planning 01/31/17 09:00 DAY UPDATE/EXAM: Nusing reports pt slept, relates in more guarded manner but remains present in the milieu and dining room, not as present in groups/ on direct exam pt expresses more overt PI and IOR, doesn't disagree that anxiety about beginning DC planning may be triggering more distrust about "what's true" . She states she's never lived in a half-way and would prefer living in own apartment at DC; reiterates willingness to work with MHP again and comply with meds which we discuss in concrete detail as essential to continue on stabilization track; understands I will be increasing Risperdal to 8 mg qd. ASSESSMENT/PLAN: regression on exam with increase IOR/PI - likely a/w DC planning phase/ will increase Risperdal to 8 mg qd; L/M with publication designer for C/B to discuss possibility to move to probated DC plan to assure compliance w ith treatment post DC, 02/01/17 DAY UPDATE/EXAM: Nursing reports pt slept well, sustaining paced gains in resolving residual paranoid acuity and is spending more time in milieu and improving group attendance, reversing regression seen 2 days ago; on direct exam responds well to reintegrative inputs as we discuss current progress inpt goals of improving comfort being with and around others, attending to ADL's and the value of using these gains on DC in the community; residual PI and IOR are present but less visible. ASSESSMENT/PLAN: reversing transient regression seen last 2 days b/w residual paranoid acuity/ no change in meds or CP d.w Nursing in Rounds; C/B from pt's [employer] Grullon pending. 02/02/17 09:00 DAY UPDATE/EXAM: Nursing reports pt slept well, c/w cares and meds, attending better to ADL's, participating better in groups/ on direct exam is engaged effectively, states she accepts biologic mother is her guardian but reaffirms she wants no contact but does want mother to continue to help in the concrete fashion I describe to her has been ongoing; also states she with work with Nursing to disentangle her hair in the interest of improving hygiene, finally agrees to accept depot Risperdal injections starting after coming weekend; DC planning also discussed; pt did well with reintegrative and clarifying in;puts during the session; did affirm the value of Cogentin second shift for akisthisia ASSESSMENT/PLAN: paced recompensation progress continues/ no change in made or management plan as d/w Nursing in Rounds; anticipate moving pt to DC end of next week 02/06/17 11:51 DAY UPDATE/EXAM: Nursing reports pt has continued paced improvement over last 3 days ; continues to display observable psychotic elements albeit with less intensity and frequency as she moves close to level of stability allowing DC/ on direct exam evidences more range and booth affective expression, diminished IOR and PI. ASSESSMENT/PLAN: improving course sustained/will administer Risperdal Consta 50 mg IM, continue po Risperdal 8 mg qd; will also continue Inderal added over weekend and standing Cogentin as previously ordered; CP reviewed with Nursing in Rounds; Inderal changed from prn to 20 mg tid 02/07/17 13:30 DAY UPDATE/EXAM: Nursing reports pt slept well, continues to progress in resolving residual psychotic acuity as she moves further toward a stable baseline/ on direct exam she presents as calm, softer facies c/w lessening active psychosis; remains with residual IOR ASSESSMENT/PLAN: continuing to evidence daily progress in resolving psychotic acuity and gaining in social ego functions/ pt to get Risperdal Consta today; o/ w no changes in CP and medications 02/08/17 11:00 DAY UPDATE/EXAM: Nursing reports pt continues descriptive progress; c/w cares and meds and sustaining psychosocial engagement per rx plan/ on direct exam presents with further lessening of residual psychosis, is calmer, and tolerates productively her first speaker phone exposure to her mother; doesn't talk directly to mother but comments to me are aimed for mother to hear; mother's comments per my direction with me as the focus. ASSESSMENT/PLAN: sustaining progress as pt works thru DC planning phase/ no change in current meds or management plan as discussed with Nursing in Rounds; tentative DC date for 02/13 to allow pt direct placement into [facility] on DC day; depot Risperdal to be injected today 02/09/17 08:30 DAY UPDATE/EXAM: Nursing reports,pt progress continues with ongoing process in resolving residual psychotic acuity in parallel with increase social comfort and improving ADL's as pt works thru DC planning phase/ on direct exam pt is calm, cooperative, and conversant; meds reviewed, progress updated, DC planning reviewed, family relationships discussed wrt to goals with both MOC and DOC ASSESSMENT/PLAN: improving course sustained/ pt did get Consta injection yesterday; no change in meds or management as d/w Nursing in Rounds 02/10/17 DAY 22/30' UPDATE/EXAM: Objective: Vital Signs Temp Pulse Resp BP Pulse Ox 36.5 C 78 14 103/55 L 92 02/08/17 06:00 02/10/17 06:26 02/10/17 06:26 02/10/17 06:26 02/10/17 06:26 ICD10 Worksheet Patient Problems: Problems Problem Status Onset Schizoaffective disorder Acute
[2017-02-10] MEDS: AMOXICILLIN/CLAVULANATE POT 875/125 MG TAB PO SCH ×2 (09:29→19:00)
[2017-02-10] MEDS: NICOTINE 21 MG/24 HR PATCH TD SCH (09:29)
[2017-02-10] MEDS: PROPRANOLOL HCL 20 MG TAB PO SCH ×3 (09:29→19:59)
[2017-02-10] MEDS: risperiDONE 2 MG TAB PO SCH ×2 (09:29→19:00)
[2017-02-10] MEDS: NICOTINE POLACRILEX 2 MG GUM B PRN ×3 (09:30→20:36)
[2017-02-10] MEDS: BENZTROPINE MESYLATE 1 MG TAB PO SCH (09:41)
[2017-02-10] MEDS: IBUPROFEN 200 MG TAB PO PRN ×2 (11:52→19:58)
[2017-02-10] MEDS: BENZTROPINE MESYLATE 1 MG TAB PO PRN (11:56)
--- NOTE | 2017-02-10 16:05 | SOAPPROG ---
SOAP Progress Note Assessment/Plan: Assessment: Plan: 01/20/17 11:30 DAY UPDATE/EXAM: Nursing report pt is less isolative - eating in DR and attending selective groups, c/w cares and meds/ on exam presents as flat and constricted, residual PI with persecutory delusions but is more verbal and with better eye contact; acknowledges obliquely that she has guardian who is her MOC; responsive to reintegrative support; accepting increase in Risperdal dosing ASSESSMENT/PLAN: residual psychotic acuity but evidencing initial improvement/ will increase Risperdal to 2 mg bid; CP d/w Nursing in Rounds 01/23/17 08:00 DAY UPDATE/EXAM: Nursing reports that pt more visible in the milieu and attending selective groups; remains with regressed ADL's but is improving hygiene; c/w cares and meds/ on direct exam does engage and make good eye contact, spontaneously verbal, less guarded; states she won't brush hair because "I don' t want to look good and attract attention"; is responsive to reintegrative support and + reinforcement for meds compliance and socialization efforts ASSESSMENT/PLAN: early phase improvement; residual psychotic acuity/ intake call to MOC pending; anticipate titrating Risperdal dosing up, still considering request for COM; CP reviewed with Nursing in Rounds 01/24/17 11:00 DAY UPDATE/EXAM: Nursing reports pt's paced improvement continues in paced manner - continues with observable guardedness, PI, degree of isolation/ on direct exam continues to evidence circumscribed PI but is conversant with me with good eye contact; understands my positive reinforcing comments on her c ompliance with her treatment plan including compliance with med; understands her Risperdal dosing will be increased to 3 mg bid. INTAKE/MOC - pending as MOC and temporary guardian on C/B ASSESSMENT/PLAN: continues early phase improvement b/w residual psychotic acuity / increase Risperdal to 3mg bid; reintegrative CP d/w Nursing in rounds; c/b expected from INC for collateral expansion of data 01/25/17 14:20 DAY UPDATE/EXAM: Nursing reports pt sustaining paced progress in clearing psychotic acuity - still in early phase as pt's PI observable/ on direct exam pt appears more relaxed and with better spontaneous eye contact b/w residual PI and obliquely makes delusional references to MOC with an angry tone; affect with broadening range and lessening flatness; agrees to work with MHP after dC and knows her housing is being addressed; reinforced in her compliance with cares and meds and encouraged to eat in dining room ASSESSMENT/PLAN: diminished psychotic acuity/ no change in meds; CP to encourage all meals in DR - d/w Nursing in Rounds 01/26/17 14:42 DAY UPDATE/EXAM: Nursing reports paced gains over last 24 hrs evidenced by more organization of thought process, more visibility in milieu, improving ADL'S/ on direct exam pt makes consistent eye contact, appearance-hygiene improving; coherent conversant verbal mode and able to discuss alliance with accepting MHP referral and, if need be, working with the [facility]; positive reponse to reintegrative input during session. ASSESSMENT/PLAN: mid-phase in progress recompensating/ no change in meds; management plan d/w Nursing in Rounds with continued emphasis of increasing autonomy with ADL'S and reinforcing social ego functions. 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 ASSESSMENT/PLAN: improving course sustained with pt sharing more lifeline disclosure/ no change in meds, CP d/w Nursing in rounds; will reality test history with MOC whom pt now accepts as her guardian and acknowledges her helpful support. 01/28/17 12:02 DAY UPDATE/EXAM: Nursing reports pt sustaining engagement witn CP focus on socialization ADL's, sleep, and group attendance with progress on all fronts/ on direct exam pt discloses first psychiatric intervention was a one week hospitalization age 15 for depressive crisis with SI; she states no rx after that until emerging psychosis age 27; reminded pt of the information about lifeline history shared yesterday which she again reaffirmed; positive response to my pointing out again the capacity for life functioning she carries as indicated by this history ASSESSMENT/PLAN: improving course sustained with less psychotic residual observed qd and + gain a referenced above/ no change in meds or management plan ; reviewed case in Rounds with Nursing. 01/29/17 08;30 UPDATE/EXAM: Nursing reports continued descriptive and functional improvement noted as pt engages the Care Plan/ on direct exam pt evidences broadening range of affect, much less guarded, less flattening in affective expression; continues with + alliance about engaging post DC treatment plan with P. ASSESSMENT/PLAN: improving trend continues with continues progress in resolving residual psychotic acuity and moving toward stable baseline allowing move into DC planning phase/ no change in meds or management plan; initiate discussion of which community services indicated under the [facility] umbrella and options for housing at time of DC 01/30/17 09:00 DAY UPDATE/EXAM: Nursing reports paced improvement continues - is using more prns in last 1-2 days for reasons that are unclear/ on direct exam is engagable, conversant, able to comment on her subjective improvement and wants to know more about [facility] services; responsive to reintegrative support; unable to explain her demands for more prn meds recently ASSESSMENT/PLAN: recompensation progress continues - residual guardedness and social inhibitions; likely residual IOR/ will clarify further issue of increased prn meds use; also will explore probating pt's compliance with psychiatric treatment by contacting pt's multisensor intelligence officer per assist from CC; also expedite obtaining P records and contacting [facility] for DC planning 01/31/17 09:00 DAY UPDATE/EXAM: Nusing reports pt slept, relates in more guarded manner but remains present in the milieu and dining room, not as present in groups/ on direct exam pt expresses more overt PI and IOR, doesn't disagree that anxiety about beginning DC planning may be triggering more distrust about "what's true" . She states she's never lived in a fci and would prefer living in own apartment at DC; reiterates willingness to work with MHP again and comply with meds which we discuss in concrete detail as essential to continue on stabilization track; understands I will be increasing Risperdal to 8 mg qd. ASSESSMENT/PLAN: regression on exam with increase IOR/PI - likely a/w DC planning phase/ will increase Risperdal to 8 mg qd; L/M with publications inspector for C/B to discuss possibility to move to probated DC plan to assure compliance w ith treatment post DC, 02/01/17 DAY UPDATE/EXAM: Nursing reports pt slept well, sustaining paced gains in resolving residual paranoid acuity and is spending more time in milieu and improving group attendance, reversing regression seen 2 days ago; on direct exam responds well to reintegrative inputs as we discuss current progress inpt goals of improving comfort being with and around others, attending to ADL's and the value of using these gains on DC in the community; residual PI and IOR are present but less visible. ASSESSMENT/PLAN: reversing transient regression seen last 2 days b/w residual paranoid acuity/ no change in meds or CP d.w Nursing in Rounds; C/B from pt's [employer] [facility] pending. 02/02/17 09:00 DAY UPDATE/EXAM: Nursing reports pt slept well, c/w cares and meds, attending better to ADL's, participating better in groups/ on direct exam is engaged effectively, states she accepts biologic mother is her guardian but reaffirms she wants no contact but does want mother to continue to help in the concrete fashion I describe to her has been ongoing; also states she with work with Nursing to disentangle her hair in the interest of improving hygiene, finally agrees to accept depot Risperdal injections starting after coming weekend; DC planning also discussed; pt did well with reintegrative and clarifying in;puts during the session; did affirm the value of Cogentin second shift for akisthisia ASSESSMENT/PLAN: paced recompensation progress continues/ no change in made or management plan as d/w Nursing in Rounds; anticipate moving pt to DC end of next week 02/06/17 11:51 DAY UPDATE/EXAM: Nursing reports pt has continued paced improvement over last 3 days ; continues to display observable psychotic elements albeit with less intensity and frequency as she moves close to level of stability allowing DC/ on direct exam evidences more range and booth affective expression, diminished IOR and PI. ASSESSMENT/PLAN: improving course sustained/will administer Risperdal Consta 50 mg IM, continue po Risperdal 8 mg qd; will also continue Inderal added over weekend and standing Cogentin as previously ordered; CP reviewed with Nursing in Rounds; Inderal changed from prn to 20 mg tid 02/07/17 13:30 DAY UPDATE/EXAM: Nursing reports pt slept well, continues to progress in resolving residual psychotic acuity as she moves further toward a stable baseline/ on direct exam she presents as calm, softer facies c/w lessening active psychosis; remains with residual IOR ASSESSMENT/PLAN: continuing to evidence daily progress in resolving psychotic acuity and gaining in social ego functions/ pt to get Risperdal Consta today; o/ w no changes in CP and medications 02/08/17 11:00 DAY UPDATE/EXAM: Nursing reports pt continues descriptive progress; c/w cares and meds and sustaining psychosocial engagement per rx plan/ on direct exam presents with further lessening of residual psychosis, is calmer, and tolerates productively her first speaker phone exposure to her mother; doesn't talk directly to mother but comments to me are aimed for mother to hear; mother's comments per my direction with me as the focus. ASSESSMENT/PLAN: sustaining progress as pt works thru DC planning phase/ no change in current meds or management plan as discussed with Nursing in Rounds; tentative DC date for 02/13 to allow pt direct placement into [facility] on DC day; depot Risperdal to be injected today 02/09/17 08:30 DAY UPDATE/EXAM: Nursing reports,pt progress continues with ongoing process in resolving residual psychotic acuity in parallel with increase social comfort and improving ADL's as pt works thru DC planning phase/ on direct exam pt is calm, cooperative, and conversant; meds reviewed, progress updated, DC planning reviewed, family relationships discussed wrt to goals with both MOC and DOC ASSESSMENT/PLAN: improving course sustained/ pt did get Consta injection yesterday; no change in meds or management as d/w Nursing in Rounds 02/10/17 14:30 DAY ' UPDATE/EXAM: Nursing reports pt continues to sustain progress in attending beteer to ADL's and social ego functions - paced but trending better; overall affective range and expression improving; guarded relatedness much diminished on exam pt remains engaged in DC planning; speaker phone meeting with mother went well in that pt talked directly in conversant mode with mother and supported her [employer]elp in looking for apartments as it continues to be administrative struggle to work out a place for pt in [facility] ASSESSMENT/PLAN: progressing well/ anticipate DC next week directly to [facility]; no change in meds or management plan. Objective: Vital Signs Temp Pulse Resp BP Pulse Ox 36.5 C 78 14 103/55 L 92 02/08/17 06:00 02/10/17 06:26 02/10/17 06:26 02/10/17 06:26 02/10/17 06:26 ICD10 Worksheet Patient Problems: Problems Problem Status Onset Schizoaffective disorder Acute
[2017-02-11 06:17] VITALS: TEMP 97.3
--- NOTE | 2017-02-11 07:08 | SOAPPROG ---
SOAP Progress Note Assessment/Plan: Assessment: Plan: 01/20/17 11:30 DAY UPDATE/EXAM: Nursing report pt is less isolative - eating in DR and attending selective groups, c/w cares and meds/ on exam presents as flat and constricted, residual PI with persecutory delusions but is more verbal and with better eye contact; acknowledges obliquely that she has guardian who is her MOC; responsive to reintegrative support; accepting increase in Risperdal dosing ASSESSMENT/PLAN: residual psychotic acuity but evidencing initial improvement/ will increase Risperdal to 2 mg bid; CP d/w Nursing in Rounds 01/23/17 08:00 DAY UPDATE/EXAM: Nursing reports that pt more visible in the milieu and attending selective groups; remains with regressed ADL's but is improving hygiene; c/w cares and meds/ on direct exam does engage and make good eye contact, spontaneously verbal, less guarded; states she won't brush hair because "I don' t want to look good and attract attention"; is responsive to reintegrative support and + reinforcement for meds compliance and socialization efforts ASSESSMENT/PLAN: early phase improvement; residual psychotic acuity/ intake call to MOC pending; anticipate titrating Risperdal dosing up, still considering request for COM; CP reviewed with Nursing in Rounds 01/24/17 11:00 DAY UPDATE/EXAM: Nursing reports pt's paced improvement continues in paced manner - continues with observable guardedness, PI, degree of isolation/ on direct exam continues to evidence circumscribed PI but is conversant with me with good eye contact; understands my positive reinforcing comments on her c ompliance with her treatment plan including compliance with med; understands her Risperdal dosing will be increased to 3 mg bid. INTAKE/MOC - pending as MOC and temporary guardian on C/B ASSESSMENT/PLAN: continues early phase improvement b/w residual psychotic acuity / increase Risperdal to 3mg bid; reintegrative CP d/w Nursing in rounds; c/b expected from [facility] for collateral expansion of data 01/25/17 14:20 DAY UPDATE/EXAM: Nursing reports pt sustaining paced progress in clearing psychotic acuity - still in early phase as pt's PI observable/ on direct exam pt appears more relaxed and with better spontaneous eye contact b/w residual PI and obliquely makes delusional references to MOC with an angry tone; affect with broadening range and lessening flatness; agrees to work with MHP after dC and knows her housing is being addressed; reinforced in her compliance with cares and meds and encouraged to eat in dining room ASSESSMENT/PLAN: diminished psychotic acuity/ no change in meds; CP to encourage all meals in DR - d/w Nursing in Rounds 01/26/17 14:42 DAY UPDATE/EXAM: Nursing reports paced gains over last 24 hrs evidenced by more organization of thought process, more visibility in milieu, improving ADL'S/ on direct exam pt makes consistent eye contact, appearance-hygiene improving; coherent conversant verbal mode and able to discuss alliance with accepting MHP referral and, if need be, working with the [facility]; positive reponse to reintegrative input during session. ASSESSMENT/PLAN: mid-phase in progress recompensating/ no change in meds; management plan d/w Nursing in Rounds with continued emphasis of increasing autonomy with ADL'S and reinforcing social ego functions. 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 ASSESSMENT/PLAN: improving course sustained with pt sharing more lifeline disclosure/ no change in meds, CP d/w Nursing in rounds; will reality test history with MOC whom pt now accepts as her guardian and acknowledges her helpful support. 01/28/17 12:02 DAY UPDATE/EXAM: Nursing reports pt sustaining engagement witn CP focus on socialization ADL's, sleep, and group attendance with progress on all fronts/ on direct exam pt discloses first psychiatric intervention was a one week hospitalization age 15 for depressive crisis with SI; she states no rx after that until emerging psychosis age 27; reminded pt of the information about lifeline history shared yesterday which she again reaffirmed; positive response to my pointing out again the capacity for life functioning she carries as indicated by this history ASSESSMENT/PLAN: improving course sustained with less psychotic residual observed qd and + gain a referenced above/ no change in meds or management plan ; reviewed case in Rounds with Nursing. 01/29/17 08;30 UPDATE/EXAM: Nursing reports continued descriptive and functional improvement noted as pt engages the Care Plan/ on direct exam pt evidences broadening range of affect, much less guarded, less flattening in affective expression; continues with + alliance about engaging post DC treatment plan with P. ASSESSMENT/PLAN: improving trend continues with continues progress in resolving residual psychotic acuity and moving toward stable baseline allowing move into DC planning phase/ no change in meds or management plan; initiate discussion of which community services indicated under the [facility] umbrella and options for housing at time of DC 01/30/17 09:00 DAY UPDATE/EXAM: Nursing reports paced improvement continues - is using more prns in last 1-2 days for reasons that are unclear/ on direct exam is engagable, conversant, able to comment on her subjective improvement and wants to know more about [facility] services; responsive to reintegrative support; unable to explain her demands for more prn meds recently ASSESSMENT/PLAN: recompensation progress continues - residual guardedness and social inhibitions; likely residual IOR/ will clarify further issue of increased prn meds use; also will explore probating pt's compliance with psychiatric treatment by contacting pt's chief legal officer per assist from CC; also expedite obtaining P records and contacting [facility] for DC planning 01/31/17 09:00 DAY UPDATE/EXAM: Nusing reports pt slept, relates in more guarded manner but remains present in the milieu and dining room, not as present in groups/ on direct exam pt expresses more overt PI and IOR, doesn't disagree that anxiety about beginning DC planning may be triggering more distrust about "what's true" . She states she's never lived in a custodial and would prefer living in own apartment at DC; reiterates willingness to work with MHP again and comply with meds which we discuss in concrete detail as essential to continue on stabilization track; understands I will be increasing Risperdal to 8 mg qd. ASSESSMENT/PLAN: regression on exam with increase IOR/PI - likely a/w DC planning phase/ will increase Risperdal to 8 mg qd; L/M with public health technician for C/B to discuss possibility to move to probated DC plan to assure compliance w ith treatment post DC, 02/01/17 DAY UPDATE/EXAM: Nursing reports pt slept well, sustaining paced gains in resolving residual paranoid acuity and is spending more time in milieu and improving group attendance, reversing regression seen 2 days ago; on direct exam responds well to reintegrative inputs as we discuss current progress inpt goals of improving comfort being with and around others, attending to ADL's and the value of using these gains on DC in the community; residual PI and IOR are present but less visible. ASSESSMENT/PLAN: reversing transient regression seen last 2 days b/w residual paranoid acuity/ no change in meds or CP d.w Nursing in Rounds; C/B from pt's [employer] [facility] pending. 02/02/17 09:00 DAY UPDATE/EXAM: Nursing reports pt slept well, c/w cares and meds, attending better to ADL's, participating better in groups/ on direct exam is engaged effectively, states she accepts biologic mother is her guardian but reaffirms she wants no contact but does want mother to continue to help in the concrete fashion I describe to her has been ongoing; also states she with work with Nursing to disentangle her hair in the interest of improving hygiene, finally agrees to accept depot Risperdal injections starting after coming weekend; DC planning also discussed; pt did well with reintegrative and clarifying in;puts during the session; did affirm the value of Cogentin second shift for akisthisia ASSESSMENT/PLAN: paced recompensation progress continues/ no change in made or management plan as d/w Nursing in Rounds; anticipate moving pt to DC end of next week 02/06/17 11:51 DAY UPDATE/EXAM: Nursing reports pt has continued paced improvement over last 3 days ; continues to display observable psychotic elements albeit with less intensity and frequency as she moves close to level of stability allowing DC/ on direct exam evidences more range and booth affective expression, diminished IOR and PI. ASSESSMENT/PLAN: improving course sustained/will administer Risperdal Consta 50 mg IM, continue po Risperdal 8 mg qd; will also continue Inderal added over weekend and standing Cogentin as previously ordered; CP reviewed with Nursing in Rounds; Inderal changed from prn to 20 mg tid 02/07/17 13:30 DAY UPDATE/EXAM: Nursing reports pt slept well, continues to progress in resolving residual psychotic acuity as she moves further toward a stable baseline/ on direct exam she presents as calm, softer facies c/w lessening active psychosis; remains with residual IOR ASSESSMENT/PLAN: continuing to evidence daily progress in resolving psychotic acuity and gaining in social ego functions/ pt to get Risperdal Consta today; o/ w no changes in CP and medications 02/08/17 11:00 DAY UPDATE/EXAM: Nursing reports pt continues descriptive progress; c/w cares and meds and sustaining psychosocial engagement per rx plan/ on direct exam presents with further lessening of residual psychosis, is calmer, and tolerates productively her first speaker phone exposure to her mother; doesn't talk directly to mother but comments to me are aimed for mother to hear; mother's comments per my direction with me as the focus. ASSESSMENT/PLAN: sustaining progress as pt works thru DC planning phase/ no change in current meds or management plan as discussed with Nursing in Rounds; tentative DC date for 02/13 to allow pt direct placement into [facility] on DC day; depot Risperdal to be injected today 02/09/17 08:30 DAY UPDATE/EXAM: Nursing reports,pt progress continues with ongoing process in resolving residual psychotic acuity in parallel with increase social comfort and improving ADL's as pt works thru DC planning phase/ on direct exam pt is calm, cooperative, and conversant; meds reviewed, progress updated, DC planning reviewed, family relationships discussed wrt to goals with both MOC and DOC ASSESSMENT/PLAN: improving course sustained/ pt did get Consta injection yesterday; no change in meds or management as d/w Nursing in Rounds 02/10/17 14:30 DAY ' UPDATE/EXAM: Nursing reports pt continues to sustain progress in attending better to ADL's and social ego functions - paced but trending better; overall affective range and expression improving; guarded relatedness much diminished on exam pt remains engaged in DC planning; speaker phone meeting with mother went well in that pt talked directly in conversant mode with mother and supported her help in looking for apartments as it continues to be administrative struggle to work out a place for pt in [facility] ASSESSMENT/PLAN: progressing well/ anticipate DC next week directly to [facility]; no change in meds or management plan. Objective: Vital Signs Temp Pulse Resp BP Pulse Ox 36.3 C 70 14 113/64 90 L 02/11/17 06:16 02/11/17 06:16 02/11/17 06:16 02/11/17 06:16 02/11/17 06:16 ICD10 Worksheet Patient Problems: Problems Problem Status Onset Schizoaffective disorder Acute
[2017-02-11] MEDS: BENZTROPINE MESYLATE 1 MG TAB PO SCH (08:26)
[2017-02-11] MEDS: NICOTINE 21 MG/24 HR PATCH TD SCH (08:26)
[2017-02-11] MEDS: PROPRANOLOL HCL 20 MG TAB PO SCH ×3 (08:26→20:17)
[2017-02-11] MEDS: risperiDONE 2 MG TAB PO SCH ×2 (08:27→20:16)
[2017-02-11] MEDS: AMOXICILLIN/CLAVULANATE POT 875/125 MG TAB PO SCH ×2 (08:27→20:16)
[2017-02-11] MEDS: ACETAMINOPHEN 500 MG TAB PO PRN ×2 (08:29→20:16)
[2017-02-11] MEDS: NICOTINE POLACRILEX 2 MG GUM B PRN (12:45)
--- NOTE | 2017-02-11 15:33 | SOAPPROG ---
[facility] Progress Note Assessment/Plan: Assessment: Plan: 02/11/17 15:33 IMproved overall. CCM. D/c plan per primary team. Subjective: Pt seen, discussed with staff, chart reviewed. She is a 36 y/o CF with complicated medical and psychiatric hx's. Clearly better after three weeks of inpatient care. Continues to focus on multiple somatic issues. This morning it is her headache and foot pain. Refused to get up or go to group until around noon. Complaining at the RN desk that no one care and she can''t funciton with this level of pain. Pleasant and interactive with me offering no other c/o's. Objective: Vital Signs Temp Pulse Resp BP Pulse Ox 36.3 C 70 14 113/64 90 L 02/11/17 06:16 02/11/17 06:16 02/11/17 06:16 02/11/17 06:16 02/11/17 06:16 MSE: Calm and coop. Affect is constricted, stable. Mood is "terrible with all this pain." TP linear. TC reveals no psychosis though strong somatic preoccupation. - Time Spent With Patient Time Spent With Patient: 15" ICD10 Worksheet Patient Problems: Problems Problem Status Onset Schizoaffective disorder Acute
[2017-02-11] MEDS: IBUPROFEN 200 MG TAB PO PRN (16:07)
[2017-02-11] MEDS: BENZTROPINE MESYLATE 1 MG TAB PO PRN (17:17)
[2017-02-12] MEDS: NICOTINE 21 MG/24 HR PATCH TD SCH (09:06)
[2017-02-12] MEDS: PROPRANOLOL HCL 20 MG TAB PO SCH ×3 (09:06→21:20)
[2017-02-12] MEDS: BENZTROPINE MESYLATE 1 MG TAB PO SCH (09:07)
[2017-02-12] MEDS: AMOXICILLIN/CLAVULANATE POT 875/125 MG TAB PO SCH ×2 (09:07→21:16)
[2017-02-12] MEDS: risperiDONE 2 MG TAB PO SCH ×2 (09:07→21:17)
[2017-02-12] MEDS: NICOTINE POLACRILEX 2 MG GUM B PRN ×2 (09:50→10:56)
--- NOTE | 2017-02-12 11:16 | SOAPPROG ---
SOAP Progress Note Assessment/Plan: Assessment: Plan: 02/11/17 15:33 IMproved overall. CCM. D/c plan per primary team. 02/12/17 11:16 Appears to be approaching baseline. CCM. Continue d/c planning. Subjective: Pt seen, discussed with staff. Remains aloof. Out of bed, in and out of groups. Showered this morning with persistent staff encouragement. Objective: Vital Signs Temp Pulse Resp BP Pulse Ox 36.3 C 58 L 14 100/64 93 02/11/17 06:16 02/12/17 06:00 02/11/17 06:16 02/12/17 06:00 02/12/17 06:00 MSE: Better groomed, guarded, less conversant. Affect is blunted, stable. Mood is "OK." TP abbreviated, disorganized at times. TC reveals some paranoia. - Time Spent With Patient Time Spent With Patient: 15" ICD10 Worksheet Patient Problems: Problems Problem Status Onset Schizoaffective disorder Acute
[2017-02-12] MEDS: IBUPROFEN 200 MG TAB PO PRN ×2 (12:24→21:18)
[2017-02-12] MEDS: BENZTROPINE MESYLATE 1 MG TAB PO PRN (14:16)
[2017-02-12] MEDS: ACETAMINOPHEN 500 MG TAB PO PRN (17:12)
[2017-02-13 06:36] VITALS: O2SAT 98
--- NOTE | 2017-02-13 07:16 | SOAPPROG ---
SOAP Progress Note Assessment/Plan: Assessment: Plan: 01/20/17 11:30 DAY UPDATE/EXAM: Nursing report pt is less isolative - eating in DR and attending selective groups, c/w cares and meds/ on exam presents as flat and constricted, residual PI with persecutory delusions but is more verbal and with better eye contact; acknowledges obliquely that she has guardian who is her MOC; responsive to reintegrative support; accepting increase in Risperdal dosing ASSESSMENT/PLAN: residual psychotic acuity but evidencing initial improvement/ will increase Risperdal to 2 mg bid; CP d/w Nursing in Rounds 01/23/17 08:00 DAY UPDATE/EXAM: Nursing reports that pt more visible in the milieu and attending selective groups; remains with regressed ADL's but is improving hygiene; c/w cares and meds/ on direct exam does engage and make good eye contact, spontaneously verbal, less guarded; states she won't brush hair because "I don' t want to look good and attract attention"; is responsive to reintegrative support and + reinforcement for meds compliance and socialization efforts ASSESSMENT/PLAN: early phase improvement; residual psychotic acuity/ intake call to MOC pending; anticipate titrating Risperdal dosing up, still considering request for COM; CP reviewed with Nursing in Rounds 01/24/17 11:00 DAY UPDATE/EXAM: Nursing reports pt's paced improvement continues in paced manner - continues with observable guardedness, PI, degree of isolation/ on direct exam continues to evidence circumscribed PI but is conversant with me with good eye contact; understands my positive reinforcing comments on her c ompliance with her treatment plan including compliance with med; understands her Risperdal dosing will be increased to 3 mg bid. INTAKE/MOC - pending as MOC and temporary guardian on C/B ASSESSMENT/PLAN: continues early phase improvement b/w residual psychotic acuity / increase Risperdal to 3mg bid; reintegrative CP d/w Nursing in rounds; c/b expected from [facility] for collateral expansion of data 01/25/17 14:20 DAY UPDATE/EXAM: Nursing reports pt sustaining paced progress in clearing psychotic acuity - still in early phase as pt's PI observable/ on direct exam pt appears more relaxed and with better spontaneous eye contact b/w residual PI and obliquely makes delusional references to MOC with an angry tone; affect with broadening range and lessening flatness; agrees to work with MHP after dC and knows her housing is being addressed; reinforced in her compliance with cares and meds and encouraged to eat in dining room ASSESSMENT/PLAN: diminished psychotic acuity/ no change in meds; CP to encourage all meals in DR - d/w Nursing in Rounds 01/26/17 14:42 DAY UPDATE/EXAM: Nursing reports paced gains over last 24 hrs evidenced by more organization of thought process, more visibility in milieu, improving ADL'S/ on direct exam pt makes consistent eye contact, appearance-hygiene improving; coherent conversant verbal mode and able to discuss alliance with accepting MHP referral and, if need be, working with the [facility]; positive reponse to reintegrative input during session. ASSESSMENT/PLAN: mid-phase in progress recompensating/ no change in meds; management plan d/w Nursing in Rounds with continued emphasis of increasing autonomy with ADL'S and reinforcing social ego functions. 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 ASSESSMENT/PLAN: improving course sustained with pt sharing more lifeline disclosure/ no change in meds, CP d/w Nursing in rounds; will reality test history with MOC whom pt now accepts as her guardian and acknowledges her helpful support. 01/28/17 12:02 DAY UPDATE/EXAM: Nursing reports pt sustaining engagement witn CP focus on socialization ADL's, sleep, and group attendance with progress on all fronts/ on direct exam pt discloses first psychiatric intervention was a one week hospitalization age 15 for depressive crisis with SI; she states no rx after that until emerging psychosis age 27; reminded pt of the information about lifeline history shared yesterday which she again reaffirmed; positive response to my pointing out again the capacity for life functioning she carries as indicated by this history ASSESSMENT/PLAN: improving course sustained with less psychotic residual observed qd and + gain a referenced above/ no change in meds or management plan ; reviewed case in Rounds with Nursing. 01/29/17 08;30 UPDATE/EXAM: Nursing reports continued descriptive and functional improvement noted as pt engages the Care Plan/ on direct exam pt evidences broadening range of affect, much less guarded, less flattening in affective expression; continues with + alliance about engaging post DC treatment plan with P. ASSESSMENT/PLAN: improving trend continues with continues progress in resolving residual psychotic acuity and moving toward stable baseline allowing move into DC planning phase/ no change in meds or management plan; initiate discussion of which community services indicated under the [facility] umbrella and options for housing at time of DC 01/30/17 09:00 DAY UPDATE/EXAM: Nursing reports paced improvement continues - is using more prns in last 1-2 days for reasons that are unclear/ on direct exam is engagable, conversant, able to comment on her subjective improvement and wants to know more about [facility] services; responsive to reintegrative support; unable to explain her demands for more prn meds recently ASSESSMENT/PLAN: recompensation progress continues - residual guardedness and social inhibitions; likely residual IOR/ will clarify further issue of increased prn meds use; also will explore probating pt's compliance with psychiatric treatment by contacting pt's forest officer per assist from CC; also expedite obtaining P records and contacting [facility] for DC planning 01/31/17 09:00 DAY UPDATE/EXAM: Nusing reports pt slept, relates in more guarded manner but remains present in the milieu and dining room, not as present in groups/ on direct exam pt expresses more overt PI and IOR, doesn't disagree that anxiety about beginning DC planning may be triggering more distrust about "what's true" . She states she's never lived in a chcf and would prefer living in own apartment at DC; reiterates willingness to work with MHP again and comply with meds which we discuss in concrete detail as essential to continue on stabilization track; understands I will be increasing Risperdal to 8 mg qd. ASSESSMENT/PLAN: regression on exam with increase IOR/PI - likely a/w DC planning phase/ will increase Risperdal to 8 mg qd; L/M with accountant certified public for C/B to discuss possibility to move to probated DC plan to assure compliance w ith treatment post DC, 02/01/17 DAY UPDATE/EXAM: Nursing reports pt slept well, sustaining paced gains in resolving residual paranoid acuity and is spending more time in milieu and improving group attendance, reversing regression seen 2 days ago; on direct exam responds well to reintegrative inputs as we discuss current progress inpt goals of improving comfort being with and around others, attending to ADL's and the value of using these gains on DC in the community; residual PI and IOR are present but less visible. ASSESSMENT/PLAN: reversing transient regression seen last 2 days b/w residual paranoid acuity/ no change in meds or CP d.w Nursing in Rounds; C/B from pt's Public [employer]ullon pending. 02/02/17 09:00 DAY UPDATE/EXAM: Nursing reports pt slept well, c/w cares and meds, attending better to ADL's, participating better in groups/ on direct exam is engaged effectively, states she accepts biologic mother is her guardian but reaffirms she wants no contact but does want mother to continue to help in the concrete fashion I describe to her has been ongoing; also states she with work with Nursing to disentangle her hair in the interest of improving hygiene, finally agrees to accept depot Risperdal injections starting after coming weekend; DC planning also discussed; pt did well with reintegrative and clarifying in;puts during the session; did affirm the value of Cogentin second shift for akisthisia ASSESSMENT/PLAN: paced recompensation progress continues/ no change in made or management plan as d/w Nursing in Rounds; anticipate moving pt to DC end of next week 02/06/17 11:51 DAY UPDATE/EXAM: Nursing reports pt has continued paced improvement over last 3 days ; continues to display observable psychotic elements albeit with less intensity and frequency as she moves close to level of stability allowing DC/ on direct exam evidences more range and booth affective expression, diminished IOR and PI. ASSESSMENT/PLAN: improving course sustained/will administer Risperdal Consta 50 mg IM, continue po Risperdal 8 mg qd; will also continue Inderal added over weekend and standing Cogentin as previously ordered; CP reviewed with Nursing in Rounds; Inderal changed from prn to 20 mg tid 02/07/17 13:30 DAY UPDATE/EXAM: Nursing reports pt slept well, continues to progress in resolving residual psychotic acuity as she moves further toward a stable baseline/ on direct exam she presents as calm, softer facies c/w lessening active psychosis; remains with residual IOR ASSESSMENT/PLAN: continuing to evidence daily progress in resolving psychotic acuity and gaining in social ego functions/ pt to get Risperdal Consta today; o/ w no changes in CP and medications 02/08/17 11:00 DAY UPDATE/EXAM: Nursing reports pt continues descriptive progress; c/w cares and meds and sustaining psychosocial engagement per rx plan/ on direct exam presents with further lessening of residual psychosis, is calmer, and tolerates productively her first speaker phone exposure to her mother; doesn't talk directly to mother but comments to me are aimed for mother to hear; mother's comments per my direction with me as the focus. ASSESSMENT/PLAN: sustaining progress as pt works thru DC planning phase/ no change in current meds or management plan as discussed with Nursing in Rounds; tentative DC date for 02/13 to allow pt direct placement into [facility] on DC day; depot Risperdal to be injected today 02/09/17 08:30 DAY UPDATE/EXAM: Nursing reports,pt progress continues with ongoing process in resolving residual psychotic acuity in parallel with increase social comfort and improving ADL's as pt works thru DC planning phase/ on direct exam pt is calm, cooperative, and conversant; meds reviewed, progress updated, DC planning reviewed, family relationships discussed wrt to goals with both MOC and DOC ASSESSMENT/PLAN: improving course sustained/ pt did get Consta injection yesterday; no change in meds or management as d/w Nursing in Rounds 02/10/17 14:30 DAY ' UPDATE/EXAM: Nursing reports pt continues to sustain progress in attending better to ADL's and social ego functions - paced but trending better; overall affective range and expression improving; guarded relatedness much diminished on exam pt remains engaged in DC planning; speaker phone meeting with mother went well in that pt talked directly in conversant mode with mother and supported her help in looking for apartments as it continues to be administrative struggle to work out a place for pt in [facility] ASSESSMENT/PLAN: progressing well/ anticipate DC next week directly to [facility]; no change in meds or management plan. 02/13/17 DAY ' UPDATE/EXAM: Objective: Vital Signs Temp Pulse Resp BP Pulse Ox 36.3 C 56 L 14 99/59 L 98 02/11/17 06:16 02/13/17 06:00 02/13/17 06:00 02/13/17 06:00 02/13/17 06:00 ICD10 Worksheet Patient Problems: Problems Problem Status Onset Schizoaffective disorder Acute
[2017-02-13] MEDS: PROPRANOLOL HCL 20 MG TAB PO SCH (08:05)
[2017-02-13] MEDS: risperiDONE 2 MG TAB PO SCH (08:05)
[2017-02-13] MEDS: NICOTINE 21 MG/24 HR PATCH TD SCH (08:05)
[2017-02-13] MEDS: BENZTROPINE MESYLATE 1 MG TAB PO SCH (08:06)
[2017-02-13] MEDS: IBUPROFEN 200 MG TAB PO PRN (09:00)
[2017-02-13 09:02] VITALS: BP 104/77; PULSE 88
[2017-02-13] MEDS: BENZTROPINE MESYLATE 1 MG TAB PO PRN (11:56)
--- NOTE | 2017-02-13 12:40 | SOAPPROG ---
SOAP Progress Note Assessment/Plan: Assessment: Plan: 01/20/17 11:30 DAY UPDATE/EXAM: Nursing report pt is less isolative - eating in DR and attending selective groups, c/w cares and meds/ on exam presents as flat and constricted, residual PI with persecutory delusions but is more verbal and with better eye contact; acknowledges obliquely that she has guardian who is her MOC; responsive to reintegrative support; accepting increase in Risperdal dosing ASSESSMENT/PLAN: residual psychotic acuity but evidencing initial improvement/ will increase Risperdal to 2 mg bid; CP d/w Nursing in Rounds 01/23/17 08:00 DAY UPDATE/EXAM: Nursing reports that pt more visible in the milieu and attending selective groups; remains with regressed ADL's but is improving hygiene; c/w cares and meds/ on direct exam does engage and make good eye contact, spontaneously verbal, less guarded; states she won't brush hair because "I don' t want to look good and attract attention"; is responsive to reintegrative support and + reinforcement for meds compliance and socialization efforts ASSESSMENT/PLAN: early phase improvement; residual psychotic acuity/ intake call to MOC pending; anticipate titrating Risperdal dosing up, still considering request for COM; CP reviewed with Nursing in Rounds 01/24/17 11:00 DAY UPDATE/EXAM: Nursing reports pt's paced improvement continues in paced manner - continues with observable guardedness, PI, degree of isolation/ on direct exam continues to evidence circumscribed PI but is conversant with me with good eye contact; understands my positive reinforcing comments on her c ompliance with her treatment plan including compliance with med; understands her Risperdal dosing will be increased to 3 mg bid. INTAKE/MOC - pending as MOC and temporary guardian on C/B ASSESSMENT/PLAN: continues early phase improvement b/w residual psychotic acuity / increase Risperdal to 3mg bid; reintegrative CP d/w Nursing in rounds; c/b expected from [facility] for collateral expansion of data 01/25/17 14:20 DAY UPDATE/EXAM: Nursing reports pt sustaining paced progress in clearing psychotic acuity - still in early phase as pt's PI observable/ on direct exam pt appears more relaxed and with better spontaneous eye contact b/w residual PI and obliquely makes delusional references to MOC with an angry tone; affect with broadening range and lessening flatness; agrees to work with [facility] after dC and knows her housing is being addressed; reinforced in her compliance with cares and meds and encouraged to eat in dining room ASSESSMENT/PLAN: diminished psychotic acuity/ no change in meds; CP to encourage all meals in DR - d/w Nursing in Rounds 01/26/17 14:42 DAY UPDATE/EXAM: Nursing reports paced gains over last 24 hrs evidenced by more organization of thought process, more visibility in milieu, improving ADL'S/ on direct exam pt makes consistent eye contact, appearance-hygiene improving; coherent conversant verbal mode and able to discuss alliance with accepting [facility] referral and, if need be, working with the [facility]; positive reponse to reintegrative input during session. ASSESSMENT/PLAN: mid-phase in progress recompensating/ no change in meds; management plan d/w Nursing in Rounds with continued emphasis of increasing autonomy with ADL'S and reinforcing social ego functions. 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 ASSESSMENT/PLAN: improving course sustained with pt sharing more lifeline disclosure/ no change in meds, CP d/w Nursing in rounds; will reality test history with MOC whom pt now accepts as her guardian and acknowledges her helpful support. 01/28/17 12:02 DAY UPDATE/EXAM: Nursing reports pt sustaining engagement witn CP focus on socialization ADL's, sleep, and group attendance with progress on all fronts/ on direct exam pt discloses first psychiatric intervention was a one week hospitalization age 15 for depressive crisis with SI; she states no rx after that until emerging psychosis age 27; reminded pt of the information about lifeline history shared yesterday which she again reaffirmed; positive response to my pointing out again the capacity for life functioning she carries as indicated by this history ASSESSMENT/PLAN: improving course sustained with less psychotic residual observed qd and + gain a referenced above/ no change in meds or management plan ; reviewed case in Rounds with Nursing. 01/29/17 08;30 UPDATE/EXAM: Nursing reports continued descriptive and functional improvement noted as pt engages the Care Plan/ on direct exam pt evidences broadening range of affect, much less guarded, less flattening in affective expression; continues with + alliance about engaging post DC treatment plan with P. ASSESSMENT/PLAN: improving trend continues with continues progress in resolving residual psychotic acuity and moving toward stable baseline allowing move into DC planning phase/ no change in meds or management plan; initiate discussion of which community services indicated under the [facility] umbrella and options for housing at time of DC 01/30/17 09:00 DAY UPDATE/EXAM: Nursing reports paced improvement continues - is using more prns in last 1-2 days for reasons that are unclear/ on direct exam is engagable, conversant, able to comment on her subjective improvement and wants to know more about [facility] services; responsive to reintegrative support; unable to explain her demands for more prn meds recently ASSESSMENT/PLAN: recompensation progress continues - residual guardedness and social inhibitions; likely residual IOR/ will clarify further issue of increased prn meds use; also will explore probating pt's compliance with psychiatric treatment by contacting pt's welfare officer per assist from CC; also expedite obtaining P records and contacting [facility] for DC planning 01/31/17 09:00 DAY UPDATE/EXAM: Nusing reports pt slept, relates in more guarded manner but remains present in the milieu and dining room, not as present in groups/ on direct exam pt expresses more overt PI and IOR, doesn't disagree that anxiety about beginning DC planning may be triggering more distrust about "what's true" . She states she's never lived in a assisted and would prefer living in own apartment at DC; reiterates willingness to work with [facility] again and comply with meds which we discuss in concrete detail as essential to continue on stabilization track; understands I will be increasing Risperdal to 8 mg qd. ASSESSMENT/PLAN: regression on exam with increase IOR/PI - likely a/w DC planning phase/ will increase Risperdal to 8 mg qd; L/M with public works manager for C/B to discuss possibility to move to probated DC plan to assure compliance w ith treatment post DC, 02/01/17 DAY UPDATE/EXAM: Nursing reports pt slept well, sustaining paced gains in resolving residual paranoid acuity and is spending more time in milieu and improving group attendance, reversing regression seen 2 days ago; on direct exam responds well to reintegrative inputs as we discuss current progress inpt goals of improving comfort being with and around others, attending to ADL's and the value of using these gains on DC in the community; residual PI and IOR are present but less visible. ASSESSMENT/PLAN: reversing transient regression seen last 2 days b/w residual paranoid acuity/ no change in meds or CP d.w Nursing in Rounds; C/B from pt's [employer] pending. 02/02/17 09:00 DAY UPDATE/EXAM: Nursing reports pt slept well, c/w cares and meds, attending better to ADL's, participating better in groups/ on direct exam is engaged effectively, states she accepts biologic mother is her guardian but reaffirms she wants no contact but does want mother to continue to help in the concrete fashion I describe to her has been ongoing; also states she with work with Nursing to disentangle her hair in the interest of improving hygiene, finally agrees to accept depot Risperdal injections starting after coming weekend; DC planning also discussed; pt did well with reintegrative and clarifying in;puts during the session; did affirm the value of Cogentin second shift for akisthisia ASSESSMENT/PLAN: paced recompensation progress continues/ no change in made or management plan as d/w Nursing in Rounds; anticipate moving pt to DC end of next week 02/06/17 11:51 DAY UPDATE/EXAM: Nursing reports pt has continued paced improvement over last 3 days ; continues to display observable psychotic elements albeit with less intensity and frequency as she moves close to level of stability allowing DC/ on direct exam evidences more range and booth affective expression, diminished IOR and PI. ASSESSMENT/PLAN: improving course sustained/will administer Risperdal Consta 50 mg IM, continue po Risperdal 8 mg qd; will also continue Inderal added over weekend and standing Cogentin as previously ordered; CP reviewed with Nursing in Rounds; Inderal changed from prn to 20 mg tid 02/07/17 13:30 DAY UPDATE/EXAM: Nursing reports pt slept well, continues to progress in resolving residual psychotic acuity as she moves further toward a stable baseline/ on direct exam she presents as calm, softer facies c/w lessening active psychosis; remains with residual IOR ASSESSMENT/PLAN: continuing to evidence daily progress in resolving psychotic acuity and gaining in social ego functions/ pt to get Risperdal Consta today; o/ w no changes in CP and medications 02/08/17 11:00 DAY UPDATE/EXAM: Nursing reports pt continues descriptive progress; c/w cares and meds and sustaining psychosocial engagement per rx plan/ on direct exam presents with further lessening of residual psychosis, is calmer, and tolerates productively her first speaker phone exposure to her mother; doesn't talk directly to mother but comments to me are aimed for mother to hear; mother's comments per my direction with me as the focus. ASSESSMENT/PLAN: sustaining progress as pt works thru DC planning phase/ no change in current meds or management plan as discussed with Nursing in Rounds; tentative DC date for 02/13 to allow pt direct placement into [facility] on DC day; depot Risperdal to be injected today 02/09/17 08:30 DAY UPDATE/EXAM: Nursing reports,pt progress continues with ongoing process in resolving residual psychotic acuity in parallel with increase social comfort and improving ADL's as pt works thru DC planning phase/ on direct exam pt is calm, cooperative, and conversant; meds reviewed, progress updated, DC planning reviewed, family relationships discussed wrt to goals with both MOC and DOC ASSESSMENT/PLAN: improving course sustained/ pt did get Consta injection yesterday; no change in meds or management as d/w Nursing in Rounds 02/10/17 14:30 DAY UPDATE/EXAM: Nursing reports pt continues to sustain progress in attending better to ADL's and social ego functions - paced but trending better; overall affective range and expression improving; guarded relatedness much diminished on exam pt remains engaged in DC planning; speaker phone meeting with mother went well in that pt talked directly in conversant mode with mother and supported her help in looking for apartments as it continues to be administrative struggle to work out a place for pt in [facility] ASSESSMENT/PLAN: progressing well/ anticipate DC next week directly to [facility]; no change in meds or management plan. 02/13/17 12:00 DAY UPDATE/EXAM: Nursing r eports pt has increased gains in recompensation thru weekend and presents with minimal observable vigilance and no overt psychosis; on direct exam is calm, conversant, cooperative; states she's productively spoken with mother x 3 over weekend and that mother is agreeable to her staying with her temporarily until [facility] apartment is found; speaker phone contact with mother affirms this understanding and DC date set for this pm.; pt presents with no overt psychosis, is sustaining affective gains and reiterates her intention of following through with [facility] intake currently scheduled for tomorrow. medications reviewed a final time and pt understands to continue oral Risperdal for another 3 weeks and continuing her Consta injections q 2 weeks. Deemed stable for safe DC. ASSESSMENT/PLAN: stable for DC today DC to live with mother and transport with MOC and her friend F/U intake with [facility] meds as referenced and given 30 day prescriptions see Discharge Summary Objective: Vital Signs Temp Pulse Resp BP Pulse Ox 36.3 C 88 14 104/77 98 02/11/17 06:16 02/13/17 09:01 02/13/17 06:00 02/13/17 09:01 02/13/17 06:00 ICD10 Worksheet Patient Problems: Problems Problem Status Onset Schizoaffective disorder Acute
--- NOTE | 2017-02-13 12:42 | SOAPPROG ---
SOAP Progress Note Assessment/Plan: Assessment: Plan: 01/20/17 11:30 DAY UPDATE/EXAM: Nursing report pt is less isolative - eating in DR and attending selective groups, c/w cares and meds/ on exam presents as flat and constricted, residual PI with persecutory delusions but is more verbal and with better eye contact; acknowledges obliquely that she has guardian who is her MOC; responsive to reintegrative support; accepting increase in Risperdal dosing ASSESSMENT/PLAN: residual psychotic acuity but evidencing initial improvement/ will increase Risperdal to 2 mg bid; CP d/w Nursing in Rounds 01/23/17 08:00 DAY UPDATE/EXAM: Nursing reports that pt more visible in the milieu and attending selective groups; remains with regressed ADL's but is improving hygiene; c/w cares and meds/ on direct exam does engage and make good eye contact, spontaneously verbal, less guarded; states she won't brush hair because "I don' t want to look good and attract attention"; is responsive to reintegrative support and + reinforcement for meds compliance and socialization efforts ASSESSMENT/PLAN: early phase improvement; residual psychotic acuity/ intake call to MOC pending; anticipate titrating Risperdal dosing up, still considering request for COM; CP reviewed with Nursing in Rounds 01/24/17 11:00 DAY UPDATE/EXAM: Nursing reports pt's paced improvement continues in paced manner - continues with observable guardedness, PI, degree of isolation/ on direct exam continues to evidence circumscribed PI but is conversant with me with good eye contact; understands my positive reinforcing comments on her c ompliance with her treatment plan including compliance with med; understands her Risperdal dosing will be increased to 3 mg bid. INTAKE/MOC - pending as MOC and temporary guardian on C/B ASSESSMENT/PLAN: continues early phase improvement b/w residual psychotic acuity / increase Risperdal to 3mg bid; reintegrative CP d/w Nursing in rounds; c/b expected from [facility] for collateral expansion of data 01/25/17 14:20 DAY UPDATE/EXAM: Nursing reports pt sustaining paced progress in clearing psychotic acuity - still in early phase as pt's PI observable/ on direct exam pt appears more relaxed and with better spontaneous eye contact b/w residual PI and obliquely makes delusional references to MOC with an angry tone; affect with broadening range and lessening flatness; agrees to work with MHP after dC and knows her housing is being addressed; reinforced in her compliance with cares and meds and encouraged to eat in dining room ASSESSMENT/PLAN: diminished psychotic acuity/ no change in meds; CP to encourage all meals in DR - d/w Nursing in Rounds 01/26/17 14:42 DAY UPDATE/EXAM: Nursing reports paced gains over last 24 hrs evidenced by more organization of thought process, more visibility in milieu, improving ADL'S/ on direct exam pt makes consistent eye contact, appearance-hygiene improving; coherent conversant verbal mode and able to discuss alliance with accepting [facility]HP referral and, if need be, working with the [facility]; positive reponse to reintegrative input during session. ASSESSMENT/PLAN: mid-phase in progress recompensating/ no change in meds; management plan d/w Nursing in Rounds with continued emphasis of increasing autonomy with ADL'S and reinforcing social ego functions. 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 ASSESSMENT/PLAN: improving course sustained with pt sharing more lifeline disclosure/ no change in meds, CP d/w Nursing in rounds; will reality test history with MOC whom pt now accepts as her guardian and acknowledges her helpful support. 01/28/17 12:02 DAY UPDATE/EXAM: Nursing reports pt sustaining engagement witn CP focus on socialization ADL's, sleep, and group attendance with progress on all fronts/ on direct exam pt discloses first psychiatric intervention was a one week hospitalization age 15 for depressive crisis with SI; she states no rx after that until emerging psychosis age 27; reminded pt of the information about lifeline history shared yesterday which she again reaffirmed; positive response to my pointing out again the capacity for life functioning she carries as indicated by this history ASSESSMENT/PLAN: improving course sustained with less psychotic residual observed qd and + gain a referenced above/ no change in meds or management plan ; reviewed case in Rounds with Nursing. 01/29/17 08;30 UPDATE/EXAM: Nursing reports continued descriptive and functional improvement noted as pt engages the Care Plan/ on direct exam pt evidences broadening range of affect, much less guarded, less flattening in affective expression; continues with + alliance about engaging post DC treatment plan with P. ASSESSMENT/PLAN: improving trend continues with continues progress in resolving residual psychotic acuity and moving toward stable baseline allowing move into DC planning phase/ no change in meds or management plan; initiate discussion of which community services indicated under the [facility] [[email or web address]] umbrella and options for housing at time of DC 01/30/17 09:00 DAY UPDATE/EXAM: Nursing reports paced improvement continues - is using more prns in last 1-2 days for reasons that are unclear/ on direct exam is engagable, conversant, able to comment on her subjective improvement and wants to know more about [facility] [[email or web address] services; responsive to reintegrative support; unable to explain her demands for more prn meds recently ASSESSMENT/PLAN: recompensation progress continues - residual guardedness and social inhibitions; likely residual IOR/ will clarify further issue of increased prn meds use; also will explore probating pt's compliance with psychiatric treatment by 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 She states she's never lived in a fdc and would prefer living in own apartment at DC; reiterates willingness to work with [facility] again and comply with meds which we discuss in concrete detail as essential to continue on stabilization track; understands I will be increasing Risperdal to 8 mg qd. ASSESSMENT/PLAN: regression on exam with increase IOR/PI - likely a/w DC planning phase/ will increase Risperdal to 8 mg qd; L/M with director public policy for C/B to discuss possibility to move to probated DC plan to assure compliance w ith treatment post DC, 02/01/17 DAY UPDATE/EXAM: Nursing reports pt slept well, sustaining paced gains in resolving residual paranoid acuity and is spending more time in milieu and improving group attendance, reversing regression seen 2 days ago; on direct exam responds well to reintegrative inputs as we discuss current progress inpt goals of improving comfort being with and around others, attending to ADL's and the value of using these gains on DC in the community; residual PI and IOR are present but less visible. ASSESSMENT/PLAN: reversing transient regression seen last 2 days b/w residual paranoid acuity/ no change in meds or CP d.w Nursing in Rounds; C/B from pt's [employer]ullon pending. 02/02/17 09:00 DAY UPDATE/EXAM: Nursing reports pt slept well, c/w cares and meds, attending better to ADL's, participating better in groups/ on direct exam is engaged effectively, states she accepts biologic mother is her guardian but reaffirms she wants no contact but does want mother to continue to help in the concrete fashion I describe to her has been ongoing; also states she with work with Nursing to disentangle her hair in the interest of improving hygiene, finally agrees to accept depot Risperdal injections starting after coming weekend; DC planning also discussed; pt did well with reintegrative and clarifying in;puts during the session; did affirm the value of Cogentin second shift for akisthisia ASSESSMENT/PLAN: paced recompensation progress continues/ no change in made or management plan as d/w Nursing in Rounds; anticipate moving pt to DC end of next week 02/06/17 11:51 DAY UPDATE/EXAM: Nursing reports pt has continued paced improvement over last 3 days ; continues to display observable psychotic elements albeit with less intensity and frequency as she moves close to level of stability allowing DC/ on direct exam evidences more range and booth affective expression, diminished IOR and PI. ASSESSMENT/PLAN: improving course sustained/will administer Risperdal Consta 50 mg IM, continue po Risperdal 8 mg qd; will also continue Inderal added over weekend and standing Cogentin as previously ordered; CP reviewed with Nursing in Rounds; Inderal changed from prn to 20 mg tid 02/07/17 13:30 DAY UPDATE/EXAM: Nursing reports pt slept well, continues to progress in resolving residual psychotic acuity as she moves further toward a stable baseline/ on direct exam she presents as calm, softer facies c/w lessening active psychosis; remains with residual IOR ASSESSMENT/PLAN: continuing to evidence daily progress in resolving psychotic acuity and gaining in social ego functions/ pt to get Risperdal Consta today; o/ w no changes in CP and medications 02/08/17 11:00 DAY UPDATE/EXAM: Nursing reports pt continues descriptive progress; c/w cares and meds and sustaining psychosocial engagement per rx plan/ on direct exam presents with further lessening of residual psychosis, is calmer, and tolerates productively her first speaker phone exposure to her mother; doesn't talk directly to mother but comments to me are aimed for mother to hear; mother's comments per my direction with me as the focus. ASSESSMENT/PLAN: sustaining progress as pt works thru DC planning phase/ no change in current meds or management plan as discussed with Nursing in Rounds; tentative DC date for 02/13 to allow pt direct placement into [facility] on DC day; depot Risperdal to be injected today 02/09/17 08:30 DAY UPDATE/EXAM: Nursing reports,pt progress continues with ongoing process in resolving residual psychotic acuity in parallel with increase social comfort and improving ADL's as pt works thru DC planning phase/ on direct exam pt is calm, cooperative, and conversant; meds reviewed, progress updated, DC planning reviewed, family relationships discussed wrt to goals with both MOC and DOC ASSESSMENT/PLAN: improving course sustained/ pt did get Consta injection yesterday; no change in meds or management as d/w Nursing in Rounds 02/10/17 14:30 DAY UPDATE/EXAM: Nursing reports pt continues to sustain progress in attending better to ADL's and social ego functions - paced but trending better; overall affective range and expression improving; guarded relatedness much diminished on exam pt remains engaged in DC planning; speaker phone meeting with mother went well in that pt talked directly in conversant mode with mother and supported her help in looking for apartments as it continues to be administrative struggle to work out a place for pt in [facility] ASSESSMENT/PLAN: progressing well/ anticipate DC next week directly to [facility] apartment; no change in meds or management plan. 02/13/17 12:00 DAY ' UPDATE/EXAM: Nursing r eports pt has increased gains in recompensation thru weekend and presents with minimal observable vigilance and no overt psychosis; on direct exam is calm, conversant, cooperative; states she's productively spoken with mother x 3 over weekend and that mother is agreeable to her staying with her temporarily until [facility] apartment is found; speaker phone contact with mother affirms this understanding and DC date set for this pm.; pt presents with no overt psychosis, is sustaining affective gains and reiterates her intention of following through with [facility] intake currently scheduled for tomorrow. medications reviewed a final time and pt understands to continue oral Risperdal for another 3 weeks and continuing her Consta injections q 2 weeks. Deemed stable for safe DC. ASSESSMENT/PLAN: stable for DC today DC to live with mother and transport with MOC and her friend F/U intake with [facility]HP meds as referenced and given 30 day prescriptions see Discharge Summary 02/13/17 12:41 Medications 30 day prescriptions Risperdal Consta due 03/03/17 Generic Name Dose Route Start Last Admin Trade Name Freq PRN Reason Stop Dose Admin Benztropine Mesylate 0.5 mg 02/02/17 09:00 02/13/17 08:06 Cogentin PO 08/01/17 08:59 0.5 mg DAILY NANY Propranolol HCl 20 mg 02/06/17 16:00 02/13/17 08:05 Inderal PO 08/05/17 15:59 Not Given TID NANY Risperidone 2 mg 02/01/17 09:00 02/13/17 08:05 Risperdal PO 07/31/17 08:59 2 mg DAILY NANY Risperidone 6 mg 02/01/17 21:00 02/12/17 21:17 Risperdal PO 07/30/17 20:59 6 mg HS NANY Objective: Vital Signs Temp Pulse Resp BP Pulse Ox 36.3 C 88 14 104/77 98 02/11/17 06:16 02/13/17 09:01 02/13/17 06:00 02/13/17 09:01 02/13/17 06:00 ICD10 Worksheet Patient Problems: Problems Problem Status Onset Schizoaffective disorder Acute
--- NOTE | 2017-02-13 12:43 | SOAPPROG ---
SOAP Progress Note Assessment/Plan: Assessment: Plan: 01/20/17 11:30 DAY UPDATE/EXAM: Nursing report pt is less isolative - eating in DR and attending selective groups, c/w cares and meds/ on exam presents as flat and constricted, residual PI with persecutory delusions but is more verbal and with better eye contact; acknowledges obliquely that she has guardian who is her MOC; responsive to reintegrative support; accepting increase in Risperdal dosing ASSESSMENT/PLAN: residual psychotic acuity but evidencing initial improvement/ will increase Risperdal to 2 mg bid; CP d/w Nursing in Rounds 01/23/17 08:00 DAY UPDATE/EXAM: Nursing reports that pt more visible in the milieu and attending selective groups; remains with regressed ADL's but is improving hygiene; c/w cares and meds/ on direct exam does engage and make good eye contact, spontaneously verbal, less guarded; states she won't brush hair because "I don' t want to look good and attract attention"; is responsive to reintegrative support and + reinforcement for meds compliance and socialization efforts ASSESSMENT/PLAN: early phase improvement; residual psychotic acuity/ intake call to MOC pending; anticipate titrating Risperdal dosing up, still considering request for COM; CP reviewed with Nursing in Rounds 01/24/17 11:00 DAY UPDATE/EXAM: Nursing reports pt's paced improvement continues in paced manner - continues with observable guardedness, PI, degree of isolation/ on direct exam continues to evidence circumscribed PI but is conversant with me with good eye contact; understands my positive reinforcing comments on her c ompliance with her treatment plan including compliance with med; understands her Risperdal dosing will be increased to 3 mg bid. INTAKE/MOC - pending as MOC and temporary guardian on C/B ASSESSMENT/PLAN: continues early phase improvement b/w residual psychotic acuity / increase Risperdal to 3mg bid; reintegrative CP d/w Nursing in rounds; c/b expected from [facility] for collateral expansion of data 01/25/17 14:20 DAY UPDATE/EXAM: Nursing reports pt sustaining paced progress in clearing psychotic acuity - still in early phase as pt's PI observable/ on direct exam pt appears more relaxed and with better spontaneous eye contact b/w residual PI and obliquely makes delusional references to MOC with an angry tone; affect with broadening range and lessening flatness; agrees to work with MHP after dC and knows her housing is being addressed; reinforced in her compliance with cares and meds and encouraged to eat in dining room ASSESSMENT/PLAN: diminished psychotic acuity/ no change in meds; CP to encourage all meals in DR - d/w Nursing in Rounds 01/26/17 14:42 DAY UPDATE/EXAM: Nursing reports paced gains over last 24 hrs evidenced by more organization of thought process, more visibility in milieu, improving ADL'S/ on direct exam pt makes consistent eye contact, appearance-hygiene improving; coherent conversant verbal mode and able to discuss alliance with accepting MHP referral and, if need be, working with the [facility]; positive reponse to reintegrative input during session. ASSESSMENT/PLAN: mid-phase in progress recompensating/ no change in meds; management plan d/w Nursing in Rounds with continued emphasis of increasing autonomy with ADL'S and reinforcing social ego functions. 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 ASSESSMENT/PLAN: improving course sustained with pt sharing more lifeline disclosure/ no change in meds, CP d/w Nursing in rounds; will reality test history with MOC whom pt now accepts as her guardian and acknowledges her helpful support. 01/28/17 12:02 DAY UPDATE/EXAM: Nursing reports pt sustaining engagement witn CP focus on socialization ADL's, sleep, and group attendance with progress on all fronts/ on direct exam pt discloses first psychiatric intervention was a one week hospitalization age 15 for depressive crisis with SI; she states no rx after that until emerging psychosis age 27; reminded pt of the information about lifeline history shared yesterday which she again reaffirmed; positive response to my pointing out again the capacity for life functioning she carries as indicated by this history ASSESSMENT/PLAN: improving course sustained with less psychotic residual observed qd and + gain a referenced above/ no change in meds or management plan ; reviewed case in Rounds with Nursing. 01/29/17 08;30 UPDATE/EXAM: Nursing reports continued descriptive and functional improvement noted as pt engages the Care Plan/ on direct exam pt evidences broadening range of affect, much less guarded, less flattening in affective expression; continues with + alliance about engaging post DC treatment plan with P. ASSESSMENT/PLAN: improving trend continues with continues progress in resolving residual psychotic acuity and moving toward stable baseline allowing move into DC planning phase/ no change in meds or management plan; initiate discussion of which community services indicated under the [facility] umbrella and options for housing at time of DC 01/30/17 09:00 DAY UPDATE/EXAM: Nursing reports paced improvement continues - is using more prns in last 1-2 days for reasons that are unclear/ on direct exam is engagable, conversant, able to comment on her subjective improvement and wants to know more about [facility] services; responsive to reintegrative support; unable to explain her demands for more prn meds recently ASSESSMENT/PLAN: recompensation progress continues - residual guardedness and social inhibitions; likely residual IOR/ will clarify further issue of increased prn meds use; also will explore probating pt's compliance with psychiatric treatment by contacting pt's personnel training officer per assist from CC; also expedite obtaining P records and contacting [facility] for DC planning 01/31/17 09:00 DAY UPDATE/EXAM: Nusing reports pt slept, relates in more guarded manner but remains present in the milieu and dining room, not as present in groups/ on direct exam pt expresses more overt PI and IOR, doesn't disagree that anxiety about beginning DC planning may be triggering more distrust about "what's true" . She states she's never lived in a nursing home and would prefer living in own apartment at DC; reiterates willingness to work with [facility] again and comply with meds which we discuss in concrete detail as essential to continue on stabilization track; understands I will be increasing Risperdal to 8 mg qd. ASSESSMENT/PLAN: regression on exam with increase IOR/PI - likely a/w DC planning phase/ will increase Risperdal to 8 mg qd; L/M with public health outreach worker for C/B to discuss possibility to move to probated DC plan to assure compliance w ith treatment post DC, 02/01/17 DAY UPDATE/EXAM: Nursing reports pt slept well, sustaining paced gains in resolving residual paranoid acuity and is spending more time in milieu and improving group attendance, reversing regression seen 2 days ago; on direct exam responds well to reintegrative inputs as we discuss current progress inpt goals of improving comfort being with and around others, attending to ADL's and the value of using these gains on DC in the community; residual PI and IOR are present but less visible. ASSESSMENT/PLAN: reversing transient regression seen last 2 days b/w residual paranoid acuity/ no change in meds or CP d.w Nursing in Rounds; C/B from pt's [facility] [employer] [facility] Grullon pending. 02/02/17 09:00 DAY UPDATE/EXAM: Nursing reports pt slept well, c/w cares and meds, attending better to ADL's, participating better in groups/ on direct exam is engaged effectively, states she accepts biologic mother is her guardian but reaffirms she wants no contact but does want mother to continue to help in the concrete fashion I describe to her has been ongoing; also states she with work with Nursing to disentangle her hair in the interest of improving hygiene, finally agrees to accept depot Risperdal injections starting after coming weekend; DC planning also discussed; pt did well with reintegrative and clarifying in;puts during the session; did affirm the value of Cogentin second shift for akisthisia ASSESSMENT/PLAN: paced recompensation progress continues/ no change in made or management plan as d/w Nursing in Rounds; anticipate moving pt to DC end of next week 02/06/17 11:51 DAY UPDATE/EXAM: Nursing reports pt has continued paced improvement over last 3 days ; continues to display observable psychotic elements albeit with less intensity and frequency as she moves close to level of stability allowing DC/ on direct exam evidences more range and booth affective expression, diminished IOR and PI. ASSESSMENT/PLAN: improving course sustained/will administer Risperdal Consta 50 mg IM, continue po Risperdal 8 mg qd; will also continue Inderal added over weekend and standing Cogentin as previously ordered; CP reviewed with Nursing in Rounds; Inderal changed from prn to 20 mg tid 02/07/17 13:30 DAY UPDATE/EXAM: Nursing reports pt slept well, continues to progress in resolving residual psychotic acuity as she moves further toward a stable baseline/ on direct exam she presents as calm, softer facies c/w lessening active psychosis; remains with residual IOR ASSESSMENT/PLAN: continuing to evidence daily progress in resolving psychotic acuity and gaining in social ego functions/ pt to get Risperdal Consta today; o/ w no changes in CP and medications 02/08/17 11:00 DAY UPDATE/EXAM: Nursing reports pt continues descriptive progress; c/w cares and meds and sustaining psychosocial engagement per rx plan/ on direct exam presents with further lessening of residual psychosis, is calmer, and tolerates productively her first speaker phone exposure to her mother; doesn't talk directly to mother but comments to me are aimed for mother to hear; mother's comments per my direction with me as the focus. ASSESSMENT/PLAN: sustaining progress as pt works thru DC planning phase/ no change in current meds or management plan as discussed with Nursing in Rounds; tentative DC date for 02/13 to allow pt direct placement into [facility] on DC day; depot Risperdal to be injected today 02/09/17 08:30 DAY UPDATE/EXAM: Nursing reports,pt progress continues with ongoing process in resolving residual psychotic acuity in parallel with increase social comfort and improving ADL's as pt works thru DC planning phase/ on direct exam pt is calm, cooperative, and conversant; meds reviewed, progress updated, DC planning reviewed, family relationships discussed wrt to goals with both MOC and DOC ASSESSMENT/PLAN: improving course sustained/ pt did get Consta injection yesterday; no change in meds or management as d/w Nursing in Rounds 02/10/17 14:30 DAY UPDATE/EXAM: Nursing reports pt continues to sustain progress in attending better to ADL's and social ego functions - paced but trending better; overall affective range and expression improving; guarded relatedness much diminished on exam pt remains engaged in DC planning; speaker phone meeting with mother went well in that pt talked directly in conversant mode with mother and supported her help in looking for apartments as it continues to be administrative struggle to work out a place for pt in [facility] ASSESSMENT/PLAN: progressing well/ anticipate DC next week directly to [facility] apartment; no change in meds or management plan. 02/13/17 12:00 Discharge Note DAY UPDATE/EXAM: Nursing r eports pt has increased gains in recompensation thru weekend and presents with minimal observable vigilance and no overt psychosis; on direct exam is calm, conversant, cooperative; states she's productively spoken with mother x 3 over weekend and that mother is agreeable to her staying with her temporarily until [facility] apartment is found; speaker phone contact with mother affirms this understanding and DC date set for this pm.; pt presents with no overt psychosis, is sustaining affective gains and reiterates her intention of following through with [facility]HP intake currently scheduled for tomorrow. medications reviewed a final time and pt understands to continue oral Risperdal for another 3 weeks and continuing her Consta injections q 2 weeks. Deemed stable for safe DC. ASSESSMENT/PLAN: stable for DC today DC to live with mother and transport with MOC and her friend F/U intake with P meds as referenced and given 30 day prescriptions see Discharge Summary 02/13/17 12:41 Medications 30 day prescriptions Risperdal Consta due 03/03/17 Generic Name Dose Route Start Last Admin Trade Name Freq PRN Reason Stop Dose Admin Benztropine Mesylate 0.5 mg 02/02/17 09:00 02/13/17 08:06 Cogentin PO 08/01/17 08:59 0.5 mg DAILY NANY Propranolol HCl 20 mg 02/06/17 16:00 02/13/17 08:05 Inderal PO 08/05/17 15:59 Not Given TID NANY Risperidone 2 mg 02/01/17 09:00 02/13/17 08:05 Risperdal PO 07/31/17 08:59 2 mg DAILY NANY Risperidone 6 mg 02/01/17 21:00 02/12/17 21:17 Risperdal PO 07/30/17 20:59 6 mg HS NANY Objective: Vital Signs Temp Pulse Resp BP Pulse Ox 36.3 C 88 14 104/77 98 02/11/17 06:16 02/13/17 09:01 02/13/17 06:00 02/13/17 09:01 02/13/17 06:00 ICD10 Worksheet Patient Problems: Problems Problem Status Onset Schizoaffective disorder Acute
== END 2017-02-13 13:39 | disposition home or self-care (01) | DRG 885 ==
LOC: BBEH 23:40
PROVIDERS: ADMIT Psychiatry & Neurology Psychiatry; ATTEND Psychiatry & Neurology Psychiatry
DX: F25.9 Schizoaffective disorder, unspecified (principal); K04.7 Periapical abscess without sinus
CPT/HCPCS: 80305; G0480; J2794

== ENCOUNTER 2017-11-10 14:06 | Emergency (ER) | payer OTHER ==
--- NOTE | 2017-11-10 15:18 | EDPHY ---
HPI/HX/ROS/PE/MDM Narrative: CHIEF COMPLAINT: Off medications, behavioral changes HPI: The patient is a 37 y/o female with known mental health history arriving with her mother for mental health evaluation after being off medications for 4 weeks and having "abnormal behaviors." She has a history of schizoaffective disorder and required inpatient psychiatric hospitalization last January for psychotic decompensation and grave disability. She is usually followed by [facility] and receives her prescriptions through them, but reports stopping her Latuda 4 weeks ago because she didn't like the side effects and would "prefer to be on a medication that doesn't have an antidepressant effect. " Per the patient, the world renowned chef and restaurant owner of the house the patient has been living in "said she heard me talking loudly in my bedroom and laughing loudly at night" and is no longer comfortable having the patient live there as a resident. The patient describes hearing voices outside her windows and says, "I don't feel the voices are in my head and I don't believe I'm in psychosis." Her mother took her to [facility] today and a provider there recommended coming to the ED for psychiatric admission. The patient is amenable to this. The patient denies recent illness, trauma, ingestions, or medical complaints. REVIEW OF SYSTEMS: Aside from elements discussed in the HPI, a comprehensive 10-point review of systems was reviewed and is negative. PMH: Schizoaffective disorder. Reviewed prior medical history including psychiatric admission 01/18/17 for psychosis. SOCIAL HISTORY: Mother at bedside. Living situation unclear. Psychiatrist: FELICIA. PHYSICAL EXAM: General:Patient is alert, in no acute distress. Face: Notable facial hair ENT:Eyes are normal to inspection. ENT inspection normal. Neck: Normal inspection. Full range of motion. Respiratory:No respiratory distress. Breath sounds normal bilaterally. Cardiovascular: Regular rate and rhythm. Strong peripheral pulses. Normal cap refill. Abdomen:The abdomen is nontender to palpation. There are no peritoneal signs. Back: Normal to inspection. No tenderness to palpation. Skin: Normal color. No rash. Warm and dry. Extremities: Normal appearance. Full range of motion. Neuro: Oriented x3. Normal motor function. Normal sensory function. (Josefina Floyd) ED Course: This is a 37 y/o female with a history of Schizoaffective Disorder who presents voluntarily with possible auditory hallucinations, loss of stable living situation, and requesting help getting on antipsychotic medication after abruptly discontinuing her medications 4 weeks ago. She is in no acute distress on exam and has normal vital signs. Plan for standard psychiatric labs and mental health evaluation. (Josefina Floyd) MDM: 0244: Patient has been accepted by Dr. Stone, at [facility]. EMTALA filled out. Appropriate transfer will be set up. (Fredrick Kilgore) - Data Points Laboratory Results: Laboratory Results 11/10/17 16:26 11/10/17 16:26 11/10/17 11/10/17 11/10/17 16:26 16:26 15:30 WBC 8.91 10^3/uL 10^3/uL (3.80-9.50) RBC 5.22 10^6/uL 10^6/uL (4.18-5.33) Hgb 15.0 g/dL g/dL (12.6-16.3) Hct 43.1 % % (38.0-47.0) MCV 82.6 fL fL (81.5-99.8) MCH 28.7 pg pg (27.9-34.1) MCHC 34.8 g/dL g/dL (32.4-36.7) RDW 12.8 % % (11.5-15.2) Plt Count 225 10^3/uL 10^3/uL (150-400) MPV 10.8 fL fL (8.7-11.7) Neut % (Auto) 64.4 % % (39.3-74.2) Lymph % (Auto) 26.6 % % (15.0-45.0) Hayes % (Auto) 6.4 % % (4.5-13.0) Eos % (Auto) 1.9 % % (0.6-7.6) Baso % (Auto) 0.4 % % (0.3-1.7) Nucleat RBC Rel Count 0.0 % % (0.0-0.2) Absolute Neuts (auto) 5.73 10^3/uL 10^3/uL (1.70-6.50) Absolute Lymphs (auto) 2.37 10^3/uL 10^3/uL (1.00-3.00) Absolute Monos (auto) 0.57 10^3/uL 10^3/uL (0.30-0.80) Absolute Eos (auto) 0.17 10^3/uL 10^3/uL (0.03-0.40) Absolute Basos (auto) 0.04 10^3/uL 10^3/uL (0.02-0.10) Absolute Nucleated RBC 0.00 10^3/uL 10^3/uL (0-0.01) Immature Gran % 0.3 % % (0.0-1.1) Immature Gran # 0.03 10^3/uL 10^3/uL (0.00-0.10) Sodium 141 mEq/L mEq/L (135-145) Potassium 4.3 mEq/L mEq/L (3.5-5.2) Chloride 102 mEq/L mEq/L (97-110) Carbon Dioxide 24 mEq/l mEq/l (22-31) Anion Gap 15 mEq/L mEq/L (8-16) BUN 16 mg/dL mg/dL (7-23) Creatinine 0.8 mg/dL mg/dL (0.6-1.0) Estimated GFR > 60 Glucose 84 mg/dL mg/dL (70-100) Calcium 9.2 mg/dL mg/dL (8.5-10.4) Urine Opiates Screen NEGATIVE (NEGATIVE) Urine Barbiturates NEGATIVE (NEGATIVE) Ur Phencyclidine Scrn NEGATIVE (NEGATIVE) Ur Amphetamine Screen NEGATIVE (NEGATIVE) U Benzodiazepines Scrn NEGATIVE (NEGATIVE) Urine Cocaine Screen NEGATIVE (NEGATIVE) U Marijuana (THC) Screen NEGATIVE (NEGATIVE) Ethyl Alcohol < 10 mg/dL mg/dL (0-10) Medications Given: Nicotine Polacrilex (Nicorette) 2 mg B PRN PRN PRN Reason: Nicotine Withdrawal Stop: 05/09/18 20:52 Last Admin: 11/10/17 20:58 Dose: 2 mg Discontinued Medications Gabapentin (Neurontin) 100 mg PO TID ONE Stop: 11/10/17 20:50 Last Admin: 11/10/17 20:57 Dose: 100 mg Lurasidone HCl (Latuda) 40 mg PO EDNOW ONE Stop: 11/10/17 20:49 Last Admin: 11/10/17 21:16 Dose: Not Given Lurasidone HCl (Latuda) 40 mg PO EDNOW ONE Stop: 11/10/17 21:01 Last Admin: 11/10/17 21:15 Dose: 40 mg General Time Seen by Provider: 11/10/17 14:59 Initial Vital Signs: Initial Vital Signs Temperature (C) 36.7 C 11/10/17 14:23 Heart Rate 100 11/10/17 14:23 Respiratory Rate 15 11/10/17 14:23 Blood Pressure 135/94 H 11/10/17 14:23 O2 Sat (%) 94 11/10/17 14:23 O2 Delivery Mode Room Air Allergies/Adverse Reactions: No Known Allergies Allergy (Unverified 01/18/17 02:14) Home Medications: Medication Instructions Recorded Benztropine Mesylate 1 tab PO BID 11/10/17 Gabapentin [Neurontin 100 MG (*)] 200 mg PO TID 11/10/17 Lurasidone HCl [Latuda] 40 mg PO HS 11/10/17 Propranolol HCl [Inderal 20mg (*)] 20 mg PO TID 11/10/17 Departure - Departure Disposition: [facility] Clinical Impression: Auditory hallucinations Schizoaffective disorder Qualifiers: Schizoaffective disorder type: other Qualified Code(s): F25.8 - Other schizoaffective disorders Condition: Fair Referrals: JOSEFINA DINERO [Non Staff Provider ()] - As per Instructions Report Scribed for: Josefina Floyd Report Scribed by: Nessa Mcdaniel Date of Report: 11/10/17 Time of Report: 15:24 Physician Review and Approval Statement: Portions of this note were transcribed by an ED scribe. I personally performed the history, physical exam, and medical decision making; and confirm the accuracy of the information in the transcribed note.
[2017-11-10 16:41] LABS: PLATELET COUNT 225 10^3/uL (150-400)
[2017-11-10] MEDS ORDERED: LURASIDONE HCL 20 MG TAB PO ONE (20:48)
[2017-11-10] MEDS ORDERED: GABAPENTIN 100 MG CAP PO ONE (20:49)
[2017-11-10] MEDS: NICOTINE POLACRILEX 2 MG GUM B PRN (20:58)
[2017-11-10] MEDS ORDERED: LURASIDONE HCL 40 MG TAB PO ONE (21:00)
[2017-11-10 23:11] VITALS: RESP 16
[2017-11-11] MEDS ORDERED: NICOTINE POLACRILEX 2 MG GUM B PRN (04:52)
[2017-11-11] MEDS ORDERED: LORazepam 1 MG TAB PO ONE (04:56)
[2017-11-11] MEDS: NICOTINE POLACRILEX 2 MG GUM B PRN (04:56)
[2017-11-11 05:35] VITALS: O2SAT 95
[2017-11-11 07:11] VITALS: BP 127/83; PULSE 73; TEMP 98.1
== END 2017-11-11 07:09 | disposition short-term general hospital (02) ==
DX: F25.8 Other schizoaffective disorders (principal)
CPT/HCPCS: 80305; G0480